=== PATIENT | female | born 1970 | race Caucasian/White ===

== ENCOUNTER 2017-01-13 02:45 | Outpatient (RCR) | payer BC ==
[~2017-01-13 02:45] MED LIST: CLOB15CR2 TOP; CYCL10TA9 PO; DIAZ5TAB3; HYDR1CAP2; IBP200T; LOPE2CAP PO; LORA10CA PO; LORA1TAB; MECL25TA56 PO; NAPR-243 PO; NITR100C3 PO; OXYC-188 PO; PNT40TEC PO; PRD10T; PRD20T; PROP1TAB77; Rivaroxaban PO
--- OUTSIDE RECORDS SUMMARY | 2017-02-03 09:35 | XMS REPORT | Continuity of Care Document ---
Author Author [facility] Organization [facility] Address Unknown Phone Unavailable Care Team Providers Care Subacute Nurse Name Role Phone JEROME CARUSO MD PCP Insurance Providers Payer Name Policy Number Subscriber Name Relationship [facility] [id number] Radha Blood Self / Same As Patient Advance Directives Directive Response Recorded Date/Time Advance Directives Yes 05/29/15 11:33pm Health Care Power of Senior Underwriter No 05/29/15 11:33pm Organ Donor Yes 05/29/15 11:33pm Resuscitation Status Full Code 05/29/15 11:33pm Problems Medical Problems Problem Onset Date Status Bilateral pulmonary embolism Unknown Active Medications Medication Dose Route Sig Days/Qty Instructions Order Date Discontinued Date Status Acetaminophen/Hydrocodone Bitart (Lorcet-Hd) 08/11/09 Discontinued Prednisone 08/19/09 09/25/09 Discontinued Diazepam (Valium) 08/19/09 09/25/09 Discontinued Prednisone 09/25/09 06/13/10 Discontinued Propoxyphene HCl/Acetaminophen 09/25/09 06/13/10 Discontinued Lorazepam (Ativan) 09/25/09 06/13/10 Discontinued Ibuprofen 09/25/09 06/13/10 Discontinued Pantoprazole Sodium 40 Mg PO DAILY 09/25/09 08/30/10 Discontinued Loperamide HCl (Imodium) 4 Mg PO DAILY PRN DIARRHEA TAKE 2 (2MG) CAPSULE 06/13/10 Active Nitrofurantoin Macrocrystals 100 Mg PO TWICE A DAY 7 Days 06/14/1029/09 Discontinued Meclizine HCl 1 Each PO QID PRN 14 Qty 06/14/10 08/30/10 Discontinued Cyclobenzaprine HCl (Flexeril) 1 Each PO Q8HR PRN 15 Qty 08/30/10 Discontinued Naproxen 1 Each PO TID PRN 20 Qty FOR PAIN 08/30/10 12/15/14 Discontinued Loperamide HCl (Imodium) 2 Cap PO DAILY LOOSE STOOL. NOT TO EXCEED 8 CAPS/24 HRS. 12/15/14 12/15/14 Discontinued Loratadine 10 Mg PO DAILY 12/15/14 Active Clobetasol Propionate TOP DAILY PRN ITCHING 12/15/14 05/29/15 Discontinued [Rivaroxaban] 15 Mg PO BID@07,17 42 Qty 12/16/14 Active Oxycodone/Acetaminophen 1 Each PO Q6HR PRN For Pain 30 Qty 12/16/14 Discontinued Social History Social History Problem Response Recorded Date/Time Alcohol Use Rarely Uses 05/29/2015 11:33pm Recreational Drug Use No 05/29/2015 11:33pm Recent Foreign Travel No 05/29/2015 11:33pm Recent Infectious Disease Exposure No 05/29/2015 11:33pm Hospitalization with Isolation Denies 05/29/2015 11:33pm Sexually Transmitted Disease No 05/29/2015 11:33pm HIV/AIDS No 05/29/2015 11:33pm Smoking Status Never a Smoker 05/29/2015 11:33pm Do you dip or chew tobacco? No 05/29/2015 11:33pm Query Response Start Date Stop Date Smoking Status Never a Smoker Hospital Discharge Instructions No hospital discharge instructions. Plan of Care No plan of care. Functional Status No functional status results. Allergies, Adverse Reactions, Alerts Allergen Type Severity Reaction Status Last Updated Sulfa (Sulfonamide Antibiotics) ([id number]) Allergy Mild Active Immunizations Name Given Type Tetanus Booster (TDap) More than 5yrs Historical Vital Signs Acute Vital Signs Vital Response Date/Time Temperature (Fahrenheit) 96.9 degrees F (97.6 - 99.5) Temperature (Calculated Celsius) 36.50714 degrees C (36.4 - 37.5) Temperature Source Temporal Pulse Rate (adult) 94 bpm (60 - 90) Respiratory Rate 18 bpm (12 - 24) O2 Sat by Pulse Oximetry 98 % (88 - 100) Blood Pressure 137/95 mm Hg Pain Pain Intensity 4 Height (Feet) 5 feet Height (Inches) 1 inches Height (Calculated Centimeters) 154.601198 cm Weight (Pounds) 160 pounds Weight (Calculated Kilograms) 72.861839 kilograms Calculated BMI 30.23 Results Laboratory Results Test Name Result Units Flags Reference Collection Date/Time Result Date/ Time Comments White Blood Count 7.8 10^3/uL 4.3-11.0 05/30/2015 12:2005/30/2015 12 :32am Red Blood Count 4.51 10^6/uL 4.35-5.85 05/30/2015 12:05/30/2015 12 :32am Hemoglobin 13.0 G/DL 11.5-16.0 05/30/2015 12:05/30/2015 12:32am Hematocrit 39 % 35-52 05/30/2015 12:05/30/2015 12:32am Mean Corpuscular Volume 87 FL 80-99 05/30/2015 12:05/30/2015 12: 32am Mean Corpuscular Hemoglobin 29 PG 25-34 05/30/2015 12:05/30/2015 12:32am Mean Corpuscular Hemoglobin Concent 33 G/DL 32-36 05/30/2015 12: 12:32am Red Cell Distribution Width 13.6 % 10.0-14.5 05/30/2015 12:2014 12:32am Platelet Count 200 10^3/uL 130-400 05/30/2015 12:05/30/2015 12: 32am Mean Platelet Volume 10.7 FL H 7.4-10.4 05/30/2015 12:05/30/2015 12: 32am Neutrophils (%) (Auto) 57 % 42-75 05/30/2015 12:2005/30/2015 12: 32am Lymphocytes (%) (Auto) 33 % 12-44 05/30/2015 12:2005/30/2015 12: 32am Monocytes (%) (Auto) 8 % 0-12 05/30/2015 12:05/30/2015 12:32am Eosinophils (%) (Auto) 2 % 0-10 05/30/2015 12:05/30/2015 12:32am Basophils (%) (Auto) 1 % 0-10 05/30/2015 12:05/30/2015 12:32am Neutrophils # (Auto) 4.5 X 10^3 1.8-7.8 05/30/2015 12:05/30/2015 12:32am Lymphocytes # (Auto) 2.6 X 10^3 1.0-4.0 05/30/2015 12:05/30/2015 12:32am Monocytes # (Auto) 0.6 X 10^3 0.0-1.0 05/30/2015 12:05/30/2015 12: 32am Eosinophils # (Auto) 0.1 10^3/uL 0.0-0.3 05/30/2015 12:05/30/2015 12:32am Basophils # (Auto) 0.0 10^3/uL 0.0-0.1 05/30/2015 12:05/30/2015 12 :32am Prothrombin Time 13.5 SEC 12.2-14.7 05/30/2015 12:05/30/2015 12: 48am INR Comment 1.1 0.8-1.4 05/30/2015 12:05/30/2015 12:48am INTERPRETIVE DATA SUGGESTED THERAPEUTIC RANGE FOR INR'S: VENOUS THROMBOSIS, PULMONARY EMBOLISM, OR PREVENTION OF SYSTEMIC EMBOLISM (EG. IN ATRIAL FIBRILLATION): 2.0 - 3.0 MECHANICAL PROSTHETIC HEART VALVES: 2.5 - 3.5* *NOTE: INR'S UP TO 4.5 MAY BE NECESSARY IN SELECTED GROUPS OF HIGH RISK PATIENTS. [employer] CONSENSUS CONFERENCE ON ANTITHROMBOTIC THERAPY (2000). Activated Partial Thromboplast Time 34 SEC 24-35 05/30/2015 12: 12:48am D-Dimer 0.22 UG/ML 0.00-0.49 05/30/2015 12:20am 05/30/2015 12:48am Sodium Level 140 MMOL/L 135-145 05/30/2015 12:05/30/2015 12:52am Potassium Level 4.0 MMOL/L 3.6-5.0 05/30/2015 12:05/30/2015 12: 52am Chloride Level 108 MMOL/L H 98-107 05/30/2015 12:05/30/2015 12:52am Carbon Dioxide Level 24 MMOL/L 21-32 05/30/2015 12:05/30/2015 12: 52am Blood Urea Nitrogen 11 MG/DL 7-18 05/30/2015 12:05/30/2015 12: 52am Creatinine 0.75 MG/DL 0.60-1.30 05/30/2015 12:05/30/2015 12:52am BUN/Creatinine Ratio 15 05/30/2015 12:05/30/2015 12:52am Estimat Glomerular Filtration Rate > 60 05/30/2015 12:2014 12:52am GFR INTERPRETIVE DATA UNITS FOR ESTIMATED GFR (eGFR): mL/min/1.73 M2 REFERENCE RANGE FOR ESTIMATED GFR (eGFR) eGFR NORMAL eGFR >60 MODERATELY DECREASED eGFR 30-59 SEVERLY DECREASED eGFR 15-29 KIDNEY FAILURE <15 (OR DIALYSIS) Glucose Level 97 MG/DL 70-105 05/30/2015 12:05/30/2015 12:52am Calcium Level 9.5 MG/DL 8.5-10.1 05/30/2015 12:05/30/2015 12:52am Total Bilirubin 0.3 MG/DL 0.1-1.0 05/30/2015 12:05/30/2015 12: 52am Alkaline Phosphatase 51 U/L 40-136 05/30/2015 12:05/30/2015 12: 52am Aspartate Amino Transf (AST/SGOT) 18 U/L 5-34 05/30/2015 12:2014 12:52am Alanine Aminotransferase (ALT/SGPT) 13 U/L 0-55 05/30/2015 12: 12:52am Total Protein 6.9 G/DL 6.4-8.2 05/30/2015 12:05/30/2015 12:52am Albumin 4.0 G/DL 3.2-4.5 05/30/2015 12:20am 05/30/2015 12:52am Procedures No known history of procedures. Encounters Encounter Location Date/Time Departed Emergency Room [facility] 05/29/15 11:24pm Recent Diagnosis
== END 2017-04-13 | disposition home or self-care (01) ==
LOC: ONC 02:45
PROVIDERS: ATTEND Internal Medicine Hematology & Oncology
DX: D68.59 Other primary thrombophilia (principal); Z86.718 Personal history of other venous thrombosis and embolism; Z86.711 Personal history of pulmonary embolism
CPT/HCPCS: 99213

== ENCOUNTER 2017-06-26 09:28 | Outpatient (RCR) | payer BC | END 2017-06-26 14:25 | disposition home or self-care (01) | LOC: ONC 09:28 | PROVIDERS: ATTEND Internal Medicine Hematology & Oncology | DX: D68.59 Other primary thrombophilia (principal); Z86.718 Personal history of other venous thrombosis and embolism; Z86.711 Personal history of pulmonary embolism | CPT/HCPCS: 99213 ==

== ENCOUNTER 2017-12-25 15:02 | Outpatient (RCR) | payer BC | END 2018-03-22 | disposition home or self-care (01) | LOC: ONC 15:02 | PROVIDERS: ATTEND Internal Medicine Hematology & Oncology | DX: D68.59 Other primary thrombophilia (principal); Z86.718 Personal history of other venous thrombosis and embolism; Z86.711 Personal history of pulmonary embolism | CPT/HCPCS: 99213 ==

== ENCOUNTER 2018-06-25 15:09 | Outpatient (RCR) | payer BC | END 2018-06-30 | disposition home or self-care (01) | LOC: ONC 15:09 | PROVIDERS: ATTEND Internal Medicine Hematology & Oncology | DX: D68.59 Other primary thrombophilia (principal); Z86.718 Personal history of other venous thrombosis and embolism; Z86.711 Personal history of pulmonary embolism ==

== ENCOUNTER 2020-05-08 05:42 | Outpatient (RCR) | payer BC ==
[~2020-05-08] VITALS: Ht 154.9 cm; Wt 75.3 kg
[~2020-05-08 05:42] MED LIST changes: +CRAN400T3 PO; +LOPE-134 PO; +LORA10TA7 PO; +RIVA20TA PO
== END 2020-05-08 15:05 | disposition home or self-care (01) ==
LOC: PREOP 05:42
PROVIDERS: ATTEND Surgery
DX: Z01.818 Encounter for other preprocedural examination (principal); Z11.59 Encounter for screening for other viral diseases
CPT/HCPCS: 87635

== ENCOUNTER 2020-05-11 07:36 | Day surgery (SDC) | payer BC ==
[2020-05-11] VITALS (13 sets, daily range): BP systolic 96–138; BP diastolic 57–95
--- OUTSIDE RECORDS SUMMARY | 2020-05-11 07:43 | XMS REPORT | Continuity of Care Document ---
Author Author Cynthia Luna [facility] Address [address] [place] [address] Phone Unavailable Care Team Providers Care Game Farm Helper Name Role Phone Rupesh Luna PP Unavailable Rupesh Luna RP Unavailable Payers Payer name Insurance type Covered green party ID Authorization(s ) BCBS Out Of Area [facility] [id number] Problems Condition Effective Dates (start - stop) Clinical Status Unknown Family History Family Member Diagnosis Age At Onset Status Unknown Social History Type Description Quantity Date Unknown Allergies, Adverse Reactions, Alerts Substance Reaction Severity Status Substance Type Unknown Medications Medication Instructions Dosage Effective Dates (start - stop) Sta tus Comments Drug Treatment Unknown Immunizations Vaccine Date Status Comments Unknown Results Test Name Date and Time Measure Units Reference Range Abnormal F lag Comments Unknown Vital Signs Date / Time: Height Weight BMI Pulse Rate Blood Pressure Temperatu re Respiratory Rate Body Surface Area Head Circumference BMI percentile Unknown Procedures Procedure Date Provider Charges For OFFICE/OUTPATIENT VISIT EST Thank You Encounters Encounter Practice Location Reason(s) For Visit Diagnoses Date Provider Provider Charges For OFFICE/OUTPATIENT VISIT EST [facility], [address] [place], [address], [facility] Jeremy gillespie. [address], [address], [place], [address], [place]. tel:[phone] Advance Directives Directive Yes / No Effective Date File Name Unknown
--- OUTSIDE RECORDS SUMMARY | 2020-05-11 07:43 | XMS REPORT | CCD ---
Author Author Auto RADHA Blank Organization [facility] er Address Unknown Phone Unavailable Care Team Providers Care Clerk Of Court Name Role Phone ANGELINE ABBOTT, DR. Santosh JENSEN RP [phone] PCP MD, NO PP Unavailable Allergies, Adverse Reactions, Alerts Substance Reaction Status Compazine Active hydrocodone nausea Active NKA Canceled Sulfa drugs Hives Active sulfADIAZINE Canceled Medications Medication Instructions Start Date End Date Status Tylenol 325 mg oral 650 mg = 2 TAB, PO, Q4H (Every 4 02/20/2010 03/22/2010 Ordered tablet hours), PRN Pain, # 360 TAB , 02/20/10 9:37:43 Vital Signs Most recent to oldest [Reference Range]: 1 Temperature [96.8-99.7 DegF] 98.0 DegF (02/20/2010 04:00:00) Temp Method Oral (02/20/2010 04:00:00) Heart Rate 89 bpm (02/20/2010 04:00:00) Heart Rate Location Auto BP (02/19/2010 00:00:00) Pulse Equipment Auto BP (02/16/2010 16:00:00) Respiratory Rate [14-20 br/min] 16 br/min (02/20/2010 04:00:00) Inet NIBP Systolic [71-219 mmHg] 139 mmHg (02/20/2010 04:00:00) Inet NIBP Diastolic [50-90 mmHg] 89 mmHg (02/20/2010 04:00:00) NIBP MAP 90 mmHg (02/14/2010 17:30:00) NIBP MAP Calc 106 (02/20/2010 04:00:00) Heart Rhythm Sinus/atrial rhythm, Sinus/atrial tachycardia (02/14/2010 15:20:00) Vital Signs Status/Type Pre Procedure (02/14/2010 12:15:00) Procedures Procedures Date Related Diagnosis Closure of stoma of small intestine 02/14/2010 00:00 :00 Other partial resection of small intestine 0 00:00:00
--- OUTSIDE RECORDS SUMMARY | 2020-05-11 07:43 | XMS REPORT | CCD ---
Author Author Auto RosamariaRADHA Organization [facility] er Address Unknown Phone Unavailable Care Team Providers Care Cable Way Operator Name Role Phone JAMES ABBOTT, DR. Emelina PATEL CP [phone] ANGELINE ABBOTT, DR. Santosh JENSEN RP [phone] PCP MD, NO PP Unavailable Allergies, Adverse Reactions, Alerts Substance Reaction Status Compazine Active hydrocodone nausea Active NKA Canceled Sulfa drugs Hives Active sulfADIAZINE Canceled Vital Signs Most recent to oldest [Reference Range]: 1 Temperature [96.8-99.7 DegF] 98.8 DegF (10/16/2009 13:28:00) Temp Method Temporal (10/16/2009 13:28:00) Heart Rate 96 bpm (10/16/2009 15:49:00) Pulse Rate [60-100 bpm] 61 bpm (10/16/2009 13:28:00) Respiratory Rate [14-20 br/min] 20 br/min (10/16/2009 18:48:00) Systolic Blood Pressure [90-140 mmHg] 145 mmHg *HI* (10/16/2009 13:28:00) Diastolic Blood Pressure [60-90 mmHg] 97 mmHg *HI* (10/16/2009 13:28:00) Inet NIBP Systolic [71-219 mmHg] 123 mmHg (10/16/2009 15:49:00) Inet NIBP Diastolic [50-90 mmHg] 93 mmHg *HI* (10/16/2009 15:49:00)
--- OUTSIDE RECORDS SUMMARY | 2020-05-11 07:43 | XMS REPORT | CCD ---
Author Author Auto RADHA Blank Organization [facility] er Address Unknown Phone Unavailable Care Team Providers Care Breaker Hand Name Role Phone ANGELINE ABBOTT, DR. Santosh JENSEN RP [phone] PCP MD, NO PP Unavailable Allergies, Adverse Reactions, Alerts Substance Reaction Status Compazine Active hydrocodone nausea Active NKA Canceled Sulfa drugs Hives Active sulfADIAZINE Canceled Vital Signs Most recent to oldest [Reference Range]: 1 Temperature [96.8-99.7 DegF] 98.5 DegF (10/11/2009 11:00:00) Temp Method Oral (10/11/2009 11:00:00) Pulse Rate [60-100 bpm] 93 bpm (10/11/2009 11:00:00) Heart Rate Location Auto BP (10/11/2009 11:00:00) Pulse Equipment Auto BP (10/10/2009 16:00:00) Respiratory Rate [14-20 br/min] 16 br/min (10/11/2009 11:00:00) Systolic Blood Pressure [90-140 mmHg] 111 mmHg (10/11/2009 11:00:00) Diastolic Blood Pressure [60-90 mmHg] 78 mmHg (10/11/2009 11:00:00) Mean Arterial Pressure 89 mmHg (10/11/2009 11:00:00) BP Location Arm, left (10/11/2009 11:00:00) BP Equipment Auto BP (10/11/2009 11:00:00) Procedures Procedures Date Related Diagnosis Other nonoperative replacements 10/09/2009 00:00:00 Percutaneous abdominal drainage 10/05/2009 00:00:00 Venous catheterization, not elsewhere classified 05/2009 00:00:00
--- OUTSIDE RECORDS SUMMARY | 2020-05-11 07:44 | XMS REPORT | CCD ---
Author Author Auto RADHA Blank Organization [facility] er Address Unknown Phone Unavailable Care Team Providers Care Coder Name Role Phone ROMANA ABBOTT, ALEXUS Pacheco RP [phone] ANGELINE ABBOTT, DR. Santosh JENSEN CP [phone] PCP MD, NO PP Unavailable Allergies, Adverse Reactions, Alerts Substance Reaction Status Compazine Active hydrocodone nausea Active NKA Canceled Sulfa drugs Hives Active sulfADIAZINE Canceled
--- OUTSIDE RECORDS SUMMARY | 2020-05-11 07:45 | XMS REPORT | Summary of Care ---
Author Organization Unknown Address Unknown Phone Unavailable Encounter [facility] [id number] Date(s): 10/06/14 - 10/06/[address] [address]- Discharge Disposition: Home - 01 Attending Physician: HARISH SERRANO MD Admitting Physician: HARISH SERRANO MD Vital Signs No data available for this section Problem List No Known Problems Allergies, Adverse Reactions, Alerts Substance Reaction Severity Status Compazine AGITATION Active hydrocodone nausea Active Sulfa drugs Hives Severe Active Medications No data available for this section Results No data available for this section Immunizations No data available for this section Procedures No data available for this section Social History No data available for this section Functional Status No data available for this section Assessment and Plan No data available for this section Hospital Discharge Instructions No data available for this section
--- OUTSIDE RECORDS SUMMARY | 2020-05-11 07:45 | XMS REPORT | CCD ---
Author Author Auto RADHA Blank [facility] er Address Unknown Phone Unavailable Care Team Providers Care Electrician Bus Name Role Phone ANGELINE ABBOTT, DR. Santosh JENSEN CP [phone] REFERRING MD, MARIA ESTHER RP Unavailable None MD, ED PP Unavailable Allergies, Adverse Reactions, Alerts Substance Reaction Status Compazine AGITATION Active hydrocodone nausea Active Sulfa drugs Hives Active Problem List Condition Effective Dates Status No Known Problems1 Active 1Generated from Physician Discharge Information Form. Medications Medication Instructions Start Date End Date Status pneumococcal 0.5 mL, SOLUTION, IM, Once, 03/19/2012 03/19/2012 Completed 23-valent vaccine 03/19/12 13:00:00, Stop marck e 03/19/12 13:00:00, give on admission (Pneumovax) PERcocet 5/325 1 TAB, PO, Q4H (Every 4 hours), PRN 03/13/2012 Ordered Pain, 0 Refill(s) Immunizations Vaccine Date Status pneumococcal 23-valent vaccine 03/19/2012 Not Don e Vital Signs Most recent to oldest [Reference Range]: 1 Temperature [96.8-99.7 DegF] 98.5 DegF (03/13/2012 08:00:00) Temp Method Oral (03/13/2012 08:00:00) Heart Rate 64 bpm (03/13/2012 08:00:00) Heart Rate Location Auto BP (03/13/2012 04:20:00) Respiratory Rate [14-20 br/min] 20 br/min (03/13/2012 08:00:00) Inet NIBP Systolic [71-219 mmHg] 101 mmHg (03/13/2012 08:00:00) Inet NIBP Diastolic [50-90 mmHg] 64 mmHg (03/13/2012 08:00:00) NIBP MAP 91 mmHg (03/13/2012 08:00:00) NIBP MAP Calc 76 (03/13/2012 08:00:00) Heart Rhythm Sinus/atrial rhythm (03/12/2012 18:45:00) Results HEMATOLOGY Most recent to oldest [Reference Range]: 1 WBC [4.0-11.0 x10'3/microL] 11.1 x10'3/microL *HI* (03/13/2012 06:10:00) RBC [3.90-5.60 x10'6/microL] 3.92 x10'6/microL (03/13/2012 06:10:00) Hgb [12.0-16.0 g/dL] 11.9 g/dL *LOW* (03/13/2012 06:10:00) Hct [35-47 %] 35 % (03/13/2012 06:10:00) Platelet [140-400 x10'3/microL] 168 x10'3/microL (03/13/2012 06:10:00) MCV [81-99 fL] 90 fL (03/13/2012 06:10:00) MCH [27-34 pg] 31 pg (03/13/2012 06:10:00) MCHC [32-36 g/dL] 34 g/dL (03/13/2012 06:10:00) RDW [<=14.5 %] 13.4 % (03/13/2012 06:10:00) MPV [6.5-10.4 fL] 9.3 fL (03/13/2012 06:10:00) Neutrophils % [44-76 %] 87 % *HI* (03/13/2012 06:10:00) Lymphocytes % [13-43 %] 8 % *LOW* (03/13/2012 06:10:00) Monocytes % [0-13 %] 4 % (03/13/2012 06:10:00) Eosinophils % [0-7 %] 0 % (03/13/2012 06:10:00) Basophils % [0-3 %] 0 % (03/13/2012 06:10:00) Neutrophils Abs [1.4-7.2 x10'3/microL] 9.7 x10'3/micro L *HI* (03/13/2012 06:10:00) Lymphocytes Abs [1.2-3.4 x10'3/microL] 0.9 x10'3/micro L *LOW* (03/13/2012 06:10:00) Monocytes Abs [0.1-0.6 x10'3/microL] 0.5 x10'3/microL (03/13/2012 06:10:00) Eosinophils Abs [0.0-0.5 x10'3/microL] 0.0 x10'3/micro L (03/13/2012 06:10:00) Basophils Abs [0.0-0.2 x10'3/microL] 0.0 x10'3/microL (03/13/2012 06:10:00) Slide Review? Performed (03/13/2012 06:10:00) CHEMISTRY Most recent to oldest [Reference Range]: 1 Sodium [136-145 mmol/L] 138 mmol/L (03/13/2012 06:10:00) Potassium [3.5-5.1 mmol/L] 3.9 mmol/L (03/13/2012 06:10:00) Chloride [98-107 mmol/L] 105 mmol/L (03/13/2012 06:10:00) CO2 [22-29 mmol/L] 26 mmol/L (03/13/2012 06:10:00) AGAP [3-19 mmol/L] 7 mmol/L (03/13/2012 06:10:00) Glucose [70-100 mg/dL] 144 mg/dL *HI* (03/13/2012 06:10:00) BUN [8-20 mg/dL] 7 mg/dL *LOW* (03/13/2012 06:10:00) Creatinine [0.7-1.2 mg/dL] 0.5 mg/dL 1 *LOW* (03/13/2012 06:10:00) Calcium [8.6-10.2 mg/dL] 8.8 mg/dL (03/13/2012 06:10:00) GFR (MDRD) >110.0 mL/min/1.73 m2 2 *NA* (03/13/2012 06:10:00) Est CrCL (CG) 111.8 mL/min 3 (03/13/2012 06:10:00) 1Interpretive Data: The presence of ketone bodies can cause artificially high results in serum, plasma and urine. 2Result Comment: GFR calculated based on MDRD abbreviated formula. Age(years) Average GFR 20-29 116 ml/min/1.73 m2 30-39 107 ml/min/1.73 m2 40-49 99 ml/min/1.73 m2 50-59 93 ml/min/1.73 m2 60-69 85 ml/min/1.73 m2 70+ 75 ml/min/1.73 m2 Acceptable GFR =>60 ml/min/1.73 m2 Chronic Kidney Disease <60 ml/min/1.73 m2 Kidney Failure <15 ml/min/1.73 m2 3Result Comment: Estimated Creatinine Clearance calculated based on the Cockcroft-Gault formula. BLOOD BANK Most recent to oldest [Reference Range]: 1 ABORh A NEG *Unknown* (03/13/2012 06:10:00) ABSC Gel Interp Negative (03/13/2012 06:10:00) Procedures Procedures Date Related Diagnosis Implantation of mesh or other prosthesis for open inc isional 03/12/2012 00:00:00 or ventral hernia repair or mesh for cl osure of debridement for necrotizing soft tissue infection ( List separately in addition to code for the incisional or ventral hernia repair) Other open incisional hernia repair with graft or pro sthesis 03/12/2012 00:00:00 Repair recurrent incisional or ventral hernia; reduci ble 03/12/2012 00:00:00
--- OUTSIDE RECORDS SUMMARY | 2020-05-11 07:45 | XMS REPORT | Continuity of Care Document ---
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 Name Role Phone [facility] Unavailable Unavailable Problems Problem Status Onset Date Classification Date Reported Comments Source PRIMARY HYPERCOAGULABLE STATE Active 10/06/2014 [facility] [employer] UNSPECIFIED INTESTINAL OBSTRUCTION Active 03/22/2012 [facility] [place] ABDOMINAL PAIN, GENERALIZED Ac tive 03/22/2012 [facility] [place] POUCHITIS [facility] 03/22[facility]2012 [facility] LEUKOCYTOSIS, UNSPECIFIED Acti ve 03/22/2012 [facility] [place] OTHER POSTSURGICAL STATUS Acti ve 03/22/2012 [facility] [employer] 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 [facility] Medications Medication Details Route Status Patient Instructions Ordering Provider Order Date Source Metamucil 1 Packet, PO, Daily, 0 Refill(s) PO Ordered [place] 03/22/2012 [facility] ciprofloxacin 500 mg oral tablet = 1 TAB, PO, BID (2 times a day), 0 Refill(s) PO Ordered [place] 03/22/2012 [facility] acetaminophen-oxycodone 325 mg-5 mg oral tablet 1 TAB, PO, Q4H (Every 4 hours), PRN Pain, 0 Refill(s) PO Ordered [facility] 03/22/2012 [facility] Flagyl 500 mg oral tablet = 1 TAB, PO, BID (2 times a day), 0 Refill(s) PO Ordered [place] 03/22/2012 [facility] Pepcid 20 mg oral tablet = 1 T AB, PO, BID (2 times a day), 0 Refill(s) PO Ordered [place] 03/22/2012 [facility] pneumococcal 23-valent vaccine 0.5 mL, SOLUTION, IM, Once, 03/19/12 13:00:00, Stop date 03/19/12 13:00:00, give on admission (Pneumovax) IM Completed [place] 03/19/2012 [facility] Tylenol Caplet Extra Strength 1,000 mg, PO, Q6H (Every 6 hours), PRN as needed for pain, 0 Refill(s) PO Ordered 03/19/2012 [facility] PERcocet 5/325 1 TAB, PO, Q4H (Every 4 hours), PRN Pain, 0 Refill(s) PO Ordered [place] 03/01 [facility] Tylenol 325 mg oral tablet 650 mg = 2 TAB, PO, Q4H (Every 4 hours), PRN Pain, # 360 TAB, 02/20/10 9:37:43 PO Ordered [place] 02/20/2010 [facility] Drug Treatment Unknown Active [facility] Allergies, Adverse Reactions, Alerts Substance Category Reaction Severity Reaction type Status Date Reported Comments Source Compazine propensity to advers e reactions to substance AGITATION Adverse Reaction Active [facility] hydrocodone propensity to adve rse reactions to substance nausea Adverse Reaction Active [facility] Sulfa drugs drug allergy Hives Severe Allergy Active [facility] Compazine Assertion AGITATION Propensity to adverse reacti ons to drug Active [facility] hydrocodone Assertion nausea Propensity to adverse reacti ons to drug Active [facility] Sulfa drugs Assertion Hives Severe Drug allergy Active [facility] Immunizations Immunization Date Given Site Status Last Updated Comments Source pneumococcal 23-valent vaccine 03/19/2012 Not Given E llis [facility] Unknown completed [facility] Results Order Name Results Value Reference Range Date Interpretation Comments Source CHEMISTRY AGAP 4 mmol/L - 19 03/21/2012 [facility] CHEMISTRY BUN 2 mg/dL 8 - 20 03/21/2012 LOW [facility] CHEMISTRY Glucose 103 mg/dL 70 - 100 03/21/2012 [facility] CHEMISTRY CO2 23 mmol/L 22 - 29 03/21/2012 [facility] CHEMISTRY Sodium 136 mmol/L 136 - 145 03/21/2012 [facility] CHEMISTRY Calcium 9.0 mg/dL 8.6 - 10.2 03/21/2012 [facility] CHEMISTRY Creatinine 0.5 mg/dL 0.7 - 1.2 03/21/2012 LOW <sup>1</sup>Interpretive Data: The prese nce of ketone bodies can cause artificially high results in serum, plasma and urine. [facility] CHEMISTRY Potassium 3.8 mmol/L 3.5 - 5.1 03/21/2012 [facility] CHEMISTRY Chloride 109 mmol/L 98 - 107 03/21/2012 [facility] CHEMISTRY Est CrCL (CG) 109.8 mL/min 03/21/2012 <sup>7</sup>Result Comment: Estimated Cr eatinine Clearance calculated based on the Cockcroft-Gault formula. [facility] CHEMISTRY GFR (MDRD) >110.0 mL/min/1.73 m2 03/21/2012 NA <sup>4</sup>Result Comment: GFR calculat ed based on MDRD abbreviated formula.

Age(years) Average GFR
20-29 116 ml/min/1.73 m2
30-39 107 ml/min/1.73 m2
40-49 99 ml/min/1.73 m2
50-59 93 ml/min/1.73 m2
60-69 85 ml/min/1.73 m2
70+ 75 ml/min/1.73 m2

Acceptable GFR =>60 ml/min/1.73 m2
Chronic Kidney Disease <60 ml/min/1.73 m2
Kidney Failure <15 ml/min/1.73 m2 [facility] HEMATOLOGY MPV 9.4 fL 6.5 - 10.4 03/21/2012 [facility] HEMATOLOGY MCHC 34 g/dL 32 - 36 03/21/2012 [facility] HEMATOLOGY RDW 13.4 % <=14.5 03/21/2012 [facility] HEMATOLOGY Platelet 172 x 10'3/microL 140 - 400 03/21/2012 [facility] HEMATOLOGY MCH 31 pg 27 - 34 03/21/2012 [facility] HEMATOLOGY RBC 3.89 x10'6/microL 3.90 - 5.60 03/21/2012 LOW [facility] HEMATOLOGY Hgb 12.0 g/dL 12.0 - 16.0 03/21/2012 [facility] HEMATOLOGY Hct 35 % 35 - 47 03/21/2012 [facility] HEMATOLOGY MCV 90 fL 81 - 99 03/21/2012 [facility] HEMATOLOGY WBC 6.0 x 10'3/microL 4.0 - 11.0 03/21/2012 [facility] HEMATOLOGY Neutrophils % 61 % 44 - 76 03/21/2012 [facility] HEMATOLOGY Lymphocytes % 24 % 13 - 43 03/21/2012 [facility] HEMATOLOGY Monocytes % 10 % 0 - 13 03/21/2012 [facility] HEMATOLOGY Eosinophils Abs 0.3 x 10'3/microL 0.0 - 0.5 03/21/2012 [facility] HEMATOLOGY Basophils Abs 0.0 x 10'3/microL 0.0 - 0.2 03/21/2012 [facility] HEMATOLOGY Neutrophils Abs 3.6 x 10'3/microL 1.4 - 7.2 03/21/2012 [facility] HEMATOLOGY Lymphocytes Abs 1.4 x 10'3/microL 1.2 - 3.4 03/21/2012 [facility] HEMATOLOGY Monocytes Abs 0.6 x 10'3/microL 0.1 - 0.6 03/21/2012 [facility] HEMATOLOGY Eosinophils % 5 % 0 - 7 03/21/2012 [facility] HEMATOLOGY Basophils % 1 % 0 - 3 03/21/2012 [facility] CHEMISTRY Est CrCL (CG) 78.4 m L/min 03/20/2012 <sup>8</sup>Result Comment: Estimated Cr eatinine Clearance calculated based on the Cockcroft-Gault formula. [facility] CHEMISTRY Sodium 137 mmol/L 136 - 145 03/20/2012 [facility] CHEMISTRY AGAP 5 mmol/L 3 - 19 03/20/2012 [facility] CHEMISTRY CO2 25 mmol/L 22 - 03/20/[address] [facility] CHEMISTRY Glucose 117 mg/dL 70 - 100 03/20/2012 [place] [facility] CHEMISTRY Chloride 107 mmol/L 98 - 107 03/20/2012 [facility] CHEMISTRY Potassium 3.6 mmol/L 3.5 - 5.1 03/20/2012 [facility] CHEMISTRY Calcium 8.8 mg/dL 8.6 - 10.2 03/20/2012 [facility] CHEMISTRY Creatinine 0.7 mg/dL 0.7 - 1.2 03/20/2012 <sup>2</sup>Interpretive Data: The prese nce of ketone bodies can cause artificially high results in serum, plasma and urine. [facility] CHEMISTRY BUN 4 mg/dL 8 - 03/20/2012 LOW [facility] CHEMISTRY GFR (MDRD) 98.7 m L/min/1.73 m2 03/20/2012 NA <sup>5</sup>Result Comment: GFR calculat ed based on MDRD abbreviated formula.

Age(years) Average GFR
20-29 116 ml/min/1.73 m2
30-39 107 ml/min/1.73 m2
40-49 99 ml/min/1.73 m2
50-59 93 ml/min/1.73 m2
60-69 85 ml/min/1.73 m2
70+ 75 ml/min/1.73 m2

Acceptable GFR =>60 ml/min/1.73 m2
Chronic Kidney Disease <60 ml/min/1.73 m2
Kidney Failure <15 ml/min/1.73 m2 [facility] HEMATOLOGY RBC 3.90 x10'6/microL 3.90 - 5.60 03/20/[address] [facility] HEMATOLOGY WBC 8.9 x 10'3/microL 4.0 - 11.0 03/20/[address] [facility] HEMATOLOGY RDW 13.3 % <=14.5 03/20/[address] [facility] HEMATOLOGY MPV 8.9 fL 6.5 - 10.4 03/20/[address] [facility] HEMATOLOGY Platelet 172 x 10'3/microL 140 - 400 03/20/[address] [facility] HEMATOLOGY Hgb 12.0 g/dL 12.0 - 16.0 03/20/[address] [facility] HEMATOLOGY MCV 90 fL 81 - 99 03/20/[address] [facility] HEMATOLOGY Hct 35 % 35 - 47 03/20/2012 [facility] HEMATOLOGY MCHC 34 g/dL 32 - 36 03/20/[address] [facility] HEMATOLOGY MCH 31 pg 27 - 34 03/20/[address] [facility] HEMATOLOGY Lymphocytes Abs 1.4 x 10'3/microL 1.2 - 3.4 03/20/2012 [facility] HEMATOLOGY Eosinophils Abs 0.3 x 10'3/microL 0.0 - 0.5 03/20/2012 [facility] HEMATOLOGY Monocytes Abs 0.7 x 10'3/microL 0.1 - 0.6 03/20/2012 [facility] HEMATOLOGY Basophils Abs 0.0 x 10'3/microL 0.0 - 0.2 03/20/[address] [facility] HEMATOLOGY Basophils % 0 % 0 - 3 03/20/[address] [facility] HEMATOLOGY Eosinophils % 3 % 0 - 7 03/20/[address] [facility] HEMATOLOGY Lymphocytes % 15 % 13 - 43 03/20/2012 [facility] HEMATOLOGY Neutrophils % 73 % 44 - 76 03/20/2012 [facility] HEMATOLOGY Monocytes % 8 % 0 - 13 03/20/2012 [facility] HEMATOLOGY Neutrophils Abs 6.6 x 10'3/microL 1.4 - 7.2 03/20/2012 [facility] URINE Microscopic? No <sup>10 </sup>
(03/19/2012 10:20:00) <sup> </sup> 03/19/2012 <sup>10</sup>Interpretive Data: When result = No, Microscopic is not indicated. Specimen is held for 3 days. Call [phone] if further testing is needed. [facility] URINE UA Blood Negative < br/>(03/19/2012 10:20:00) <sup> </sup> Negative 03/19/2012 [facility] URINE UA Protein Trace mg/d L
*ABN*
(03/19/2012 10:20:00) <sup> </sup> Negative 03/19/2012 ABN [facility] URINE UA pH 6.5 5.0 - 8.0 03/19/2012 [facility] URINE UA Urobilinogen 0.2 EU per dL 0.2 - 1.0 03/19/2012 [facility] URINE UA Nitrite Negative < br/>(03/19/2012 10:20:00) <sup> </sup> Negative 03/19/2012 [facility] URINE UA Leuk Est Negative < br/>(03/19/2012 10:20:00) <sup> </sup> Negative 03/19/2012 [facility] URINE UA Spec Type Clean Catc h
(03/19/2012 10:20:00) <sup> </sup> 03/19/2012 [facility] URINE UA Color Yellow
(03/19/2012 10:20:00) <sup> </sup> 03/19/2012 [facility] URINE UA Spec Grav >=1.030 <b r/>(03/19/2012 10:20:00) <sup> </sup> 1.001 - 1.030 03/19/2012 [facility] URINE UA Ketones Negative m g/dL
(03/19/2012 10:20:00) <sup> </sup> Negative 03/19/2012 [facility] URINE UA Glucose Negative m g/dL
(03/19/2012 10:20:00) <sup> </sup> Negative 03/19/2012 [facility] URINE UA Bili Negative < br/>(03/19/2012 10:20:00) <sup> </sup> Negative 03/19/2012 [facility] CHEMISTRY Potassium 3.8 mmol/L 3.5 - 5.1 03/19/2012 [facility] CHEMISTRY Sodium 137 mmol/L 136 - 145 03/19/2012 [facility] CHEMISTRY CO2 23 mmol/L 22 - 29 03/19/2012 [facility] CHEMISTRY AGAP 11 mmol/L 3 - 19 03/19/2012 [facility] CHEMISTRY Chloride 103 mmol/L 98 - 107 03/19/2012 [facility] CHEMISTRY Creatinine 0.5 mg/dL 0.7 - 1.2 03/19/2012 LOW <sup>3</sup>Interpretive Data: The prese nce of ketone bodies can cause artificially high results in serum, plasma and urine. [facility] CHEMISTRY Total Protein 7.5 g/ dL 6.6 - 8.7 03/19/2012 [facility] CHEMISTRY BUN 13 mg/dL 8 - 20 03/19/2012 [facility] CHEMISTRY Calcium 9.9 mg/dL 8.6 - 10.2 03/19/2012 [facility] CHEMISTRY Glucose 114 mg/dL 70 - 100 03/19/2012 [facility] CHEMISTRY Albumin Level 4.5 g/ dL 3.5 - 5.2 03/19/2012 [facility] CHEMISTRY Bili Total 0.6 mg/dL 0.0 - 1.2 03/19/2012 [facility] CHEMISTRY Alk Phos 47 [iU]/d 40 - 130 03/19/2012 [facility] CHEMISTRY AST 22 Units/L 0 - 40 03/19/2012 [facility] CHEMISTRY ALT 16 [iU]/d 0 - 33 03/19/2012 [facility] CHEMISTRY Lipase 32 Units/L 13 - 60 03/19/[address] [facility] CHEMISTRY Est CrCL (CG) 109.8 mL/min 03/19/2012 <sup>9</sup>Result Comment: Estimated Cr eatinine Clearance calculated based on the Cockcroft-Gault formula. [facility] CHEMISTRY GFR (MDRD) >110.0 mL/min/1.73 m2 03/19/2012 NA <sup>6</sup>Result Comment: GFR calculat ed based on MDRD abbreviated formula.

Age(years) Average GFR
20-29 116 ml/min/1.73 m2
30-39 107 ml/min/1.73 m2
40-49 99 ml/min/1.73 m2
50-59 93 ml/min/1.73 m2
60-69 85 ml/min/1.73 m2
70+ 75 ml/min/1.73 m2

Acceptable GFR =>60 ml/min/1.73 m2
Chronic Kidney Disease <60 ml/min/1.73 m2
Kidney Failure <15 ml/min/1.73 m2 [facility] HEMATOLOGY Platelet 206 x 10'3/microL 140 - 400 03/19/[address] [facility] HEMATOLOGY MCHC 34 g/dL 32 - 36 03/19/2012 [facility] HEMATOLOGY RDW 13.6 % <=14.5 03/19/[address] [facility] HEMATOLOGY MCV 90 fL 81 - 99 03/19/[address] [facility] HEMATOLOGY MCH 30 pg 27 - 34 03/19/2012 [facility] HEMATOLOGY Hct 43 % 35 - 47 03/19/2012 [facility] HEMATOLOGY MPV 9.6 fL 6.5 - 10.4 03/19/[address] [facility] HEMATOLOGY WBC 13.4 x10'3/microL 4.0 - 11.0 03/19/2012 [facility] HEMATOLOGY RBC 4.79 x10'6/microL 3.90 - 5.60 03/19/[address] [facility] HEMATOLOGY Hgb 14.6 g/dL 12.0 - 16.0 03/19/2012 [facility] HEMATOLOGY Eosinophils % 0 % 0 - 7 03/19/2012 [facility] HEMATOLOGY Basophils % 0 % 0 - 3 03/19/[address] [facility] HEMATOLOGY Neutrophils Abs 11.5 x10'3/microL 1.4 - 7.2 03/19/2012 [facility] HEMATOLOGY Lymphocytes Abs 1.2 x 10'3/microL 1.2 - 3.4 03/19/2012 [facility] HEMATOLOGY Monocytes Abs 0.5 x 10'3/microL 0.1 - 0.6 03/19/[address] [facility] HEMATOLOGY Eosinophils Abs 0.1 x 10'3/microL 0.0 - 0.5 03/19/2012 [facility] HEMATOLOGY Basophils Abs 0.0 x 10'3/microL 0.0 - 0.2 03/19/2012 [facility] HEMATOLOGY Neutrophils % 86 % 44 - 76 03/19/2012 [facility] HEMATOLOGY Lymphocytes % 9 % 13 - 43 03/19/[address] [facility] HEMATOLOGY Monocytes % 4 % 0 - 13 03/19/[address] [facility] BLOOD BANK ABSC Gel Interp Negat nancy
(03/13/2012 06:10:00) <sup> </sup> 03/13/2012 [facility] BLOOD BANK ABORh A NEG 03/13/2012 Unknown [facility] CHEMISTRY Est CrCL (CG) 111.8 mL/min 03/13/2012 <sup>3</sup>Result Comment: Estimated Cr eatinine Clearance calculated based on the Cockcroft-Gault formula. [facility] CHEMISTRY Potassium 3.9 mmol/L 3.5 - 5.1 03/13/2012 [facility] CHEMISTRY Sodium 138 mmol/L 136 - 145 03/13/2012 [facility] CHEMISTRY Creatinine 0.5 mg/dL 0.7 - 1.2 03/13/2012 LOW <sup>1</sup>Interpretive Data: The prese nce of ketone bodies can cause artificially high results in serum, plasma and urine. [facility] CHEMISTRY BUN 7 mg/dL 8 - 20 03/13/2012 LOW [facility] CHEMISTRY Chloride 105 mmol/L 98 - 107 03/13/2012 [facility] CHEMISTRY Calcium 8.8 mg/dL 8.6 - 10.2 03/13/2012 [facility] CHEMISTRY AGAP 7 mmol/L 3 - 19 03/13/2012 [facility] CHEMISTRY CO2 26 mmol/L 22 - 29 03/13/2012 [facility] CHEMISTRY Glucose 144 mg/dL 70 - 100 03/13/2012 [place] [facility] CHEMISTRY GFR (MDRD) >110.0 mL/min/1.73 m2 03/13/2012 NA <sup>2</sup>Result Comment: GFR calculat ed based on MDRD abbreviated formula.

Age(years) Average GFR
20-29 116 ml/min/1.73 m2
30-39 107 ml/min/1.73 m2
40-49 99 ml/min/1.73 m2
50-59 93 ml/min/1.73 m2
60-69 85 ml/min/1.73 m2
70+ 75 ml/min/1.73 m2

Acceptable GFR =>60 ml/min/1.73 m2
Chronic Kidney Disease <60 ml/min/1.73 m2
Kidney Failure <15 ml/min/1.73 m2 [facility] HEMATOLOGY Slide Review? Perfo rmed
(03/13/2012 06:10:00) <sup> </sup> 03/13/2012 [facility] HEMATOLOGY MCH 31 pg 27 - 34 03/13/2012 [facility] HEMATOLOGY MCV 90 fL 81 - 99 03/13/2012 [facility] HEMATOLOGY Hct 35 % 35 - 47 03/13/2012 [facility] HEMATOLOGY Hgb 11.9 g/dL 12.0 - 16.0 03/13/2012 LOW [facility] HEMATOLOGY MCHC 34 g/dL 32 - 36 03/13/2012 [facility] HEMATOLOGY MPV 9.3 fL 6.5 - 10.4 03/13/2012 [facility] HEMATOLOGY Platelet 168 x 10'3/microL 140 - 400 03/13/2012 [facility] HEMATOLOGY RDW 13.4 % <=14.5 03/13/2012 [facility] HEMATOLOGY RBC 3.92 x10'6/microL 3.90 - 5.60 03/13/2012 [facility] HEMATOLOGY WBC 11.1 x10'3/microL 4.0 - 11.0 03/13/2012 [facility] HEMATOLOGY Lymphocytes % 8 % 13 - 43 03/13/2012 LOW [facility] HEMATOLOGY Neutrophils % 87 % 44 - 76 03/13/2012 [facility] HEMATOLOGY Monocytes % 4 % 0 - 13 03/13/2012 [facility] HEMATOLOGY Monocytes Abs 0.5 x 10'3/microL 0.1 - 0.6 03/13/2012 [facility] HEMATOLOGY Lymphocytes Abs 0.9 x 10'3/microL 1.2 - 3.4 03/13/2012 LOW [facility] HEMATOLOGY Neutrophils Abs 9.7 x 10'3/microL 1.4 - 7.2 03/13/2012 [facility] HEMATOLOGY Basophils Abs 0.0 x 10'3/microL 0.0 - 0.2 03/13/2012 [facility] HEMATOLOGY Eosinophils Abs 0.0 x 10'3/microL 0.0 - 0.5 03/13/2012 [facility] HEMATOLOGY Basophils % 0 % 0 - 3 03/13/2012 [facility] HEMATOLOGY Eosinophils % 0 % 0 - 7 03/13/2012 [facility] Unknown [facility] No data available for this section No data available for this section [facility] Pathology Reports No Data Provided for This Section Diagnostic Reports Report Value Date Source XR Abdomen Flat/Upright W Chest 1V [place] [address] Radiology Reports CPT Codes; 40623 CDM Codes: 3202026 (XR Abdomen Flat/Upright W Chest 1V) Reason for exam: abd pain Report ACUTE ABDOMINAL SERIES, 3 views CLINICAL DATA: Abdominal pain. FINDINGS: The heart size is normal. The mediastinum is unremarkable. No consolidations are seen. No free air is seen under the diaphragm. Minimal left basilar atelectasis or scarring noted. There is marked interval improvement in gaseous distention of stomach and small bowel , when compared to prior study. IMPRESSION: Marked interval improvement of gaseous distention of the stomach and small bowel, when compared to prior study with minimal residual small bowel prominence in the left upper quadrant, may represent improving partial small bowel obstruction. Dictating Sandra Moore Dictated 03/20/2012 Signing Sandra Moore Final Dictated by: SANDRA SHERIDAN DO Signed by: SANDRA SHERIDAN DO 03/20/12 10:01 Insurance Application Investigator: ZELDA 03/20/12 09:56 RADHA BLOOD [id number] 03/20/2012 [facility] CT Abdomen W Pelvis W Cont [address] [address] Radiology Reports CPT Codes; 16594, Q9967 CDM Codes: 5973488 (C Contrast Optiray 300/ML) Reason for exam: abd pain, possible partial SBO Addendum ADDENDUM: The patient was brought back four hours after the initial examination for repeat axial imaging of the abdomen and pelvis. Contrast reaches the distal bowel including the J-pouch. There is no evidence of obstruction. Dictating Pieter Sahu Dictated 03/19/2012 Signing Pieter Sahu Addended Report Dictated by: PIETER ROGERS MD Signed by: IPETER ROGERS MD 03/19/12 16:31 Insurance Application Investigator KAYLIE 03/19/12 16:[address] ABDOMEN AND PELVIS WITH CONTRAST. CLINICAL HISTORY: Abdominal pain, partial small bowel obstruction TECHNIQUE: Multiple contiguous axial CT images of the abdomen and pelvis were obtained with 100 cc of Optiray-300 contrast. Oral contrast was also used. Comparison to the CT abdomen and pelvis from October 16, 2009, today's plain film radiographs. FINDINGS: CT ABDOMEN FINDINGS: RADHA BLOOD [id number] [facility] [address] [address] Radiology Reports There has been development of minimal pleural fluid and minimal bibasilar atelectasis. The liver, gallbladder, spleen, pancreas, adrenal glands and kidneys remain essentially normal. A midline incisional scar is present. The previously seen right lower quadrant ileostomy is no longer present. A further discussion of bowel as mentioned in the pelvis findings below. There is no ascites. There is no lymphadenopathy or free air. There is no evidence of abscess. The aorta is normal in caliber. CT PELVIS FINDINGS: There are findings consistent with colectomy and J-pouch. There is fluid distention and mild gaseous distention of the residual colon. There is no evidence of small bowel obstruction. There is no ascites or lymphadenopathy. A right ovarian cyst is present measuring 2.8 cm. The uterus is unremarkable. The distal ureters and urinary bladder are normal. No acute osseous abnormality is seen. IMPRESSION: 1. No evidence of small bowel obstruction. 2. Status post previous colectomy and J-pouch. There is air fluid distention of the J-pouch and distal bowel. 3. Right ovarian 2.8 cm cyst. Dictating Pieter Sahu Dictated 03/19/2012 Signing Pieter Sahu Report revised on 03/19/12 16:31:34 by PIETER ROGERS MD Final Dictated by: PIETER ROGERS MD Signed by: PIETER ROGERS MD 03/19/12 13:01 Insurance Application Investigator: KAYLIE 03/19/12 12:52 RADHA BLOOD [id number] 03/19/2012 [facility] CT [place]domen [place] [address] Radiology Reports CPT Codes; 73413, Q9967 CDM Codes: 8151458 (C Contrast Optiray 300/ML) Reason for exam: abd pain, possible partial SBO Report CT ABDOMEN AND PELVIS WITH CONTRAST. CLINICAL HISTORY: Abdominal pain, partial small bowel obstruction TECHNIQUE: Multiple contiguous axial CT images of the abdomen and pelvis were obtained with 100 cc of Optiray-300 contrast. Oral contrast was also used. Comparison to the CT abdomen and pelvis from October 16, 2009, today's plain film radiographs. FINDINGS: CT ABDOMEN FINDINGS: There has been development of minimal pleural fluid and minimal bibasilar atelectasis. The liver, gallbladder, spleen, pancreas, adrenal glands and kidneys remain essentially normal. A midline incisional scar is present. The previously seen right lower quadrant ileostomy is no longer present. A further discussion of bowel as mentioned in the pelvis findings below. There is no ascites. There is no lymphadenopathy or free air. There is no evidence of abscess. The aorta is normal in caliber. CT PELVIS FINDINGS: There are findings consistent with colectomy and J-pouch. There is fluid distention and mild gaseous distention of the residual colon. There is no evidence of small bowel obstruction. There is no ascites or lymphadenopathy. A right ovarian cyst is present measuring 2.8 cm. The uterus is unremarkable. The distal ureters and urinary bladder are normal. No acute osseous abnormality is seen. RADHA BLOOD [id number] [place] [id number] Radiology Reports IMPRESSION: 1. No evidence of small bowel obstruction. 2. Status post previous colectomy and J-pouch. There is air fluid distention of the J-pouch and distal bowel. 3. Right ovarian 2.8 cm cyst. Dictating Pieter Sahu Dictated 03/19/2012 Signing Pieter Sahu Final Dictated by: PIETER ROGERS MD Signed by: PIETER ROGERS MD 03/19/12 13:01 Insurance Application Investigator: KAYLIE 03/19/12 12:52 RADHA BLOOD [id number] 03/19/2012 [facility] XR Abdomen Flat/Upright W Chest 1V [facility] [address] [address] Radiology Reports CPT Codes; 75956 CDM Codes: [id number] (XR Abdomen Flat/Upright W Chest 1V) Reason for exam: Abd pain Report Flat and upright abdomen with single view chest. Clinical History: Abdominal pain. Findings: Comparison is made to the CT abdomen and pelvis from October 16, 2009. The single view chest is clear. Moderate gaseous distention of stomach and small bowel is present, particularly in the central abdomen. No discrete air-fluid levels are seen. There is no evidence of free air. There are no abnormal radiopaque calcifications within the expected course of the urinary tract. The osseous structures are grossly normal. Impression: Moderate small bowel and gastric distention. Partial small bowel obstruction is the diagnosis of exclusion. CT followup is suggested. Dictating Pieter Sahu Dictated 03/19/2012 Signing Pieter Sahu Final Dictated by: PIETER ROGERS MD Signed by: PIETER ROGERS MD 03/19/12 08:37 Insurance Application Investigator: JEASTON 03/19/12 08:34 BALAJIALEX RADHA K [id number] 03/19/2012 [facility] Consultation Notes Results Value Date Source Emergency Room Record Emergency Room Record Abdominal pain Patient: RADHA BLOOD Age: 42 years Sex: Female : 1970 Author: PEDRO ANDRADE MD, AIDEN E Basic Information Time seen: Immediately upon arrival. History source: Patient. Arrival mode: Private vehicle. History limitation: None. History of Present Illness The patient presents with abdominal pain. The onset was last night. The course/duration of symptoms is worsening. The character of symptoms is sharp. The degree at onset was severe. The Location of pain at onset was diffuse. The degree at present is severe. The Location of pain at present is diffuse. Therapy today: prescription medications. Risk factors consist of recent surgery and hernia repair. Associated symptoms: nausea and vomiting. Review of Systems Constitutional symptoms: Negative except as documented in HPI. Skin symptoms: Negative except as documented in HPI. Eye symptoms: Negative except as documented in HPI. ENMT symptoms: Negative except as documented in HPI. Respiratory symptoms: No shortness of breath, Cardiovascular symptoms: No chest pain, Gastrointestinal symptoms: Abdominal pain, nausea, vomiting, no diarrhea, no constipation. Genitourinary symptoms: No dysuria, Musculoskeletal symptoms: Negative except as documented in HPI. Neurologic symptoms: Negative except as documented in HPI. Endocrine symptoms: Negative except as documented in HPI. Hematologic/Lymphatic symptoms: Negative except as documented in HPI. Allergy/immunologic symptoms: Negative except as documented in HPI. Health Status Allergies: . Allergic Reactions (Selected) Severe Sulfa drugs- Hives. Nonallergic Reactions (Selected) Severity not Documented Compazine- Agitation. Hydrocodone- Nausea. Medications: (Selected). Documented Medications Ordered Imodium A-D: 2 TABS, PO, Daily, 05/09/10 11:14:41 PERcocet 5/325: 1 TAB, PO, Q4H (Every 4 hours), PRN Pain, 0 Refill(s) Emergency Room Record Tylenol Caplet Extra Strength: 1,000 mg, PO, Q6H (Every 6 hours), PRN as needed for pain, 0 Refill(s) Past Medical/ Family/ Social History Medical history HEALTH HISTORY Colectomy Patient DVT - Deep vein thrombosis Patient Exercise tolerance Patient Factor V Leiden mutation Patient Hernia repair Patient J pouch Patient Ulcerative colitis Patient . Social history: Alcohol use: Denies. Physical Examination Vital Signs Vital Signs. 03/19/2012 7:14 Temperature 99.0 DegF Temp Method Oral Heart Rate 112 bpm Respiratory Rate 22 br/min HI Inet NIBP Systolic 127 mmHg Inet NIBP Diastolic 97 mmHg HI Oxygen Saturation. 03/19/2012 7:14 Oxygen Saturation 97 % General: Alert, severe distress, anxious. Skin: Warm, dry, no rash, Not cyanotic, Head: Normocephalic, atraumatic. Neck: Supple, trachea midline. Eye: Pupils are equal, round and reactive to light, extraocular movements are intact, normal conjunctiva, No scleral icterus. Ears, nose, mouth and throat: Oral mucosa moist, no pharyngeal erythema or exudate. Cardiovascular: No murmur, Normal peripheral perfusion, Tachycardia. Respiratory: Lungs are clear to auscultation, respirations are non-labored, breath sounds are equal. Gastrointestinal: Soft, abdominal distention, incision C/D/i, Tenderness: Severe, generalized, Guarding: Negative, Rebound: Negative, Bowel sounds: present, Organomegaly: Negative. Back: Nontender, Normal range of motion. Musculoskeletal: Normal ROM. Neurological: Alert and oriented to person, place, time, and situation, No focal neurological deficit observed, CN II-XII intact, normal sensory observed, normal motor observed, normal speech observed, normal coordination observed. Medical Decision Making Orders Launch Orders, Emergency Room Record Laboratory: Urinalysis / Reflex Microscopic (Order Processing): Urine, Clean Catch, Stat collect, 03/19/2012 7:48, Nurse collect, Hold Until Collected Comp Metabolic Panel (Order Processing): Blood, Stat collect, 03/19/2012 7:48 Lipase Level (Order Processing): Blood, Stat collect, 03/19/2012 7:48 CBC and Plt w Diff (Order Processing): Blood, Stat collect, 03/19/2012 7:48 Patient Care: IV insertion (Order Processing): 03/19/2012 7:48, Stat Pharmacy: HYDROmorphone (Order Processing): 0.5 mg, INJ, IV Push, Q15MIN (Every 15 minutes), STAT, 03/19/2012 7:48, 4 dose/time, Stop date 03/19/2012 8:33, (Dilaudid) famotidine (Order Processing): 20 mg, IV Push, Once, STAT, 03/19/2012 7:48, Stop date 03/19/2012 7:48, (Pepcid) ondansetron (Order Processing): 4 mg, IV Push, Once, STAT, 03/19/2012 7:48, Stop date 03/19/2012 7:48, (Zofran) LORazepam (Order Processing): 1 mg, IV Push, Once, STAT, 03/19/2012 7:48, Stop date 03/19/2012 7:48, (Ativan) Sodium Chloride 0.9% 1000 mL (Order Processing): 1,000 mL, IV, STAT, 03/19/2012 7:48, 1 dose/time, Stop date 03/19/2012 8:47, 1,000 mL/hr, Infuse over 60 minute, Bolus Radiology: XR Abdomen Flat/Upright W Chest 1V (Order Processing): 03/19/2012 7:48 Stat, Reason: Abd pain, Transport Mode: Bed ? No, IV? Yes, O2? Yes, Abd pain, Standard Precautions, WrittenLaunch Orders. Radiology: CT Abdomen W Pelvis W Cont (Order Processing): 03/19/2012 9:48 Stat, Reason: abd pain, possible partial SBO, Transport Mode: Bed ? No, IV? Yes, O2? Yes, Standard Precautions, Written Results review: Lab results : Laboratory, 03/19/2012 7:50 WBC 13.4 x10'3/microL HI RBC 4.79 x10'6/microL Hgb 14.6 g/dL Hct 43 % Platelet 206 x10'3/microL MCV 90 fL MCH 30 pg MCHC 34 g/dL RDW 13.6 % MPV 9.6 fL Neutrophils % 86 % HI Lymphocytes % 9 % LOW Monocytes % 4 % Eosinophils % 0 % Basophils % 0 % Neutrophils Abs 11.5 x10'3/microL HI Lymphocytes Abs 1.2 x10'3/microL Monocytes Abs 0.5 x10'3/microL Eosinophils Abs 0.1 x10'3/microL Basophils Abs 0.0 x10'3/microL Sodium 137 mmol/L Emergency Room Record Potassium 3.8 mmol/L Chloride 103 mmol/L CO2 23 mmol/L AGAP 11 mmol/L Glucose 114 mg/dL HI BUN 13 mg/dL Creatinine 0.5 mg/dL LOW Calcium 9.9 mg/dL GFR (MDRD) >110.0 mL/min/1.73 m2 NA Est CrCL (CG) 109.8 mL/min Albumin Level 4.5 g/dL Total Protein 7.5 g/dL Alk Phos 47 Inter. Units/L Lipase 32 Units/L AST 22 Units/L ALT 16 Inter. Units/L Bili Total 0.6 mg/dL Interpretation Abnormal results high WBC. Radiology results: . COMPLETED RADIOLOGY IMAGING STUDIES: XR Abdomen Flat/Upright W Ches [Final] (03/19 830): Impression: Moderate small bowel and gastric distention. Partial small bowel obstruction is the diagnosis of exclusion. CT followup is suggested. Reexamination/ Reevaluation Vital signs Vital Signs from Flowsheet 03/19/2012 12:00 Temperature 98.1 DegF Temp Method Oral Heart Rate 101 bpm Respiratory Rate 21 br/min HI Inet NIBP Systolic 122 mmHg Inet NIBP Diastolic 77 mmHg NIBP MAP Calc 92 Course: improving. Pain status: decreased. Interventions: IVF bolus and antiemetics, parenteral pain meds titrated to relief. Impression and Plan Diagnosis Abdominal pain 789.00 (ICD9 789.00) partial SBO Plan Condition: Guarded. Disposition: Admit: to Inpatient Unit. Emergency Room Record Prescriptions: Admission Orders Written. Counseled: Patient, Family, Regarding diagnosis, Regarding diagnostic results, Regarding treatment plan, Patient indicated understanding of instructions. Signed by: PEDRO ANDRADE MD, AIDEN Pritchard on March 19, 2012 11:24:29 PM 03/19/2012 [facility] Operative Report DATE OF OPERA TION 03/12/2012 PREOPERATIVE DIAGNOSIS Recurrent ventral abdominal hernia. POSTOPERATIVE DIAGNOSIS Recurrent ventral abdominal hernia. PROCEDURE Repair of ventral abdominal hernia with synthetic Marlex mesh. SURGEON Marbin Manley MD ANESTHESIA General. DESCRIPTION OF PROCEDURE The patient was prepared and draped in a sterile manner under adequate general anesthesia in the supine position. A vertical midline incision was made below the umbilicus and above the umbilicus. The dissection was taken down to the hernia sac. The hernia sac was entered. Hernia sac was dissected away from the surrounding fascial defect. The hernia sac was then excised. The fascia circumferentially around the hernia was debrided of all fatty tissue. The fascia was then reapproximated with interrupted sutures of #1 PDS. This was closed adequately without tension. This was done in a transverse manner. A synthetic Marlex mesh was then placed over the repair after being soaked in polymyxin, bacitracin fluid. The entire fascial area overlying the repair was sutured to the fascia with multiple interrupted sutures of 2-0 Prolene. The wound was then lavaged with poly andrea' and polymyxin, bacitracin fluid, as well as Betadine fluid. The subcutaneous tissue was reapproximated with interrupted sutures of 2-0 Vicryl. The skin was reapproximated with interrupted sutures of 3-0 black nylon. At the termination of the procedure, hemostasis was excellent. Sterile dressings were then applied. The patient tolerated the procedure well. Sponge and instrument counts were correct and the patient was taken back to the recovery area in stable and good condition. BDG/cm C.T. C.T. E: 03/13/2012 08:40 C.T./ Conf# [id number] Doc#: [id number] cc: 03/13/2012 [facility] Operative Report Operative Report hernia repair with mesh Patient: RADHA BLOOD Age: 42 years Sex: Female : 1970 Author: MARBIN MANLEY MD Operative Information Pre-Op Diagnosis: hernia. Post-Op Diagnosis: Same as Pre-Operative Diagnosis. Procedure: hernia repair with mesh. Surgeon(s): luciana. Dog Trainer[s]: regan coombs. Anesthesia: General. Specimens: None. Wound Type: Clean. Complications: None. Estimated blood loss: None. Patient Condition: Good. Signed by: MARBIN MANLEY MD on March 12, 2012 04:20:01 PM 03/12/2012 [facility] Discharge Summaries Results Value Date Source Discharge Summary DATE OF ADMI SSION 03/19/2012. DATE OF DISCHARGE 03/22/2012. HOSPITAL COURSE This was a 42-year-old white female who presented approximately one week status post ventral abdominal hernia repair with synthetic mesh with acute onset of severe abdominal pain and vomiting. CT scan on admission revealed very distended loops of small bowel extending into the ileal J pouch and into the anus. The patient was noted to have a leukocytosis of 15,000 white blood cells. The patient was afebrile, however. The patient was placed on IV antibiotics, n.p.o., and close observation. This patient slowly improved with lessening pain. Vomiting resolved. The patient's diet was advanced. The patient began having full bowel function. Her abdominal films improved. The patient continued to get better and was subsequently discharged in good condition on 03/22/2012. The patient was told to avoid exercise. The patient was placed on Cipro 500 mg b.i.d. and Flagyl 500 mg b.i.d. for 7 days. The patient was told to return in 2 weeks for recheck. The patient was instructed on a soft diet. FINAL DIAGNOSIS Abdominal pain of uncertain etiology with probable pouchitis and possible ileus. BDG/rk C.T. C.T. E: 03/23/2012 09:27 C.T./ Conf# [id number] Doc#: [id number] cc: 03/23/2012 [facility] Discharge Summary DATE OF ADMI SSION 03/12/2012 DATE OF DISCHARGE 03/13/2012 This was a 42-year-old white female who presented with a ventral abdominal hernia. The hernia was repaired with synthetic mesh. The patient subsequently had an unremarkable postoperative course, being afebrile throughout her hospital stay. The patient had bowel activity and tolerated regular food without problems. The patient subsequently discharged on the next day on 03/13/2012. The patient was told to avoid exercise and take a regular diet. The patient was given Percocet 5 mg 1 to 2 q.4h p.r.n. pain. The patient told to return in 2 weeks for recheck. FINAL DIAGNOSIS Recurrent ventral abdominal hernia. BDG/valentina C.T. C.T. E: 03/14/2012 15:43 C.T./ Conf# [id number] Doc#: [id number] cc: 03/14/2012 [facility] History and Physicals Results Value Date Source History and Physical HISTORY O F PRESENT ILLNESS This is a 42-year-old white female who is 1 week status post uncomplicated repair of a small ventral abdominal hernia with Marlex mesh laying over the repair in the subcutaneous tissue. The patient was doing quite well when approximately 12 hours ago underwent a sudden onset of acute abdominal pain, nausea and vomiting. The patient has had continued watery diarrhea. ALLERGIES SULFA AND COMPAZINE. MEDICATIONS None. HABITS None. PAST MEDICAL HISTORY In 10/2009, the patient underwent a restorative proctocolectomy with ileoanal J pouch procedure and diverting loop ileostomy. In 01/2010, the patient underwent a takedown of the diverting loop ileostomy. In 05/2010, the patient underwent an operative repair for a small ventral abdominal hernia. This was done without synthetic mesh. The patient has had a history of a pulmonary embolism and was treated with Coumadin for nearly 1 year. The patient had a deep venous thrombosis. REVIEW OF SYSTEMS Fourteen point review of systems is otherwise unremarkable. The patient otherwise has been in good health and has had excellent control of her bowel movements. FAMILY HISTORY Unremarkable. SOCIAL HISTORY The patient lives in [place], [place]. , has children, is employed. PHYSICAL EXAMINATION VITAL SIGNS: Temperature 98, blood pressure 130/80, pulse 80 and regular, and respirations 18. GENERAL: This is a well-developed white female in mild abdominal distress. HEENT: Without masses. No JVD or bruits. LUNGS: Clear bilaterally. CARDIOVASCULAR: Regular rate and rhythm without murmurs or gallops. ABDOMEN: Abdomen is mildly tender generally. There is no distention. The abdomen is soft. There is noted to be a well healing abdominal incision. EXTREMITIES: Without edema, cyanosis, limitation of movement. NEUROLOGIC: Intact bilaterally. LABORATORY DATA WBC is 14.3, hemoglobin 14.6, 86 polys, 9 lymphs, 4 monocytes. Sodium 137, potassium 3.8, chloride 103, CO2 23, glucose 114, creatinine 0.5, BUN 13, alkaline phosphatase 47, lipase 32, SGPT 16. Urinalysis negative. Abdominal films reveal moderate small distention, possible bowel obstruction. DIAGNOSTIC IMPRESSION Possible ileus versus small bowel obstruction. PLAN IV hydration, close observation. BDG/jf C.T. C.T. E: 03/20/2012 01:12 C.T./ Conf# [id number] Doc#: [id number] cc: 03/20/2012 [facility] History and Physical HISTORY O F PRESENT ILLNESS This is a 42-year-old white female who presents with a recurrence ventral abdominal hernia. The patient had a previous repair without any synthetic mesh. The patient presents now for repair and placement of synthetic mesh. HABITS None. ALLERGIES SULFA. MEDICATIONS DARVOCET, MOTRIN, ATIVAN, PROTONIX. PAST MEDICAL HISTORY Previous restorative proctocolectomy with ileoanal J pouch procedure and temporary ileostomy with subsequent takedown of ileostomy for history of ulcerative colitis. REVIEW OF SYSTEMS The patient otherwise has been in good health and been doing well. A previous abdominal hernia repair. FAMILY HISTORY Unremarkable. SOCIAL HISTORY The patient lives in [place], [place], is employed, , has children. PHYSICAL EXAMINATION HEENT: Without masses. NECK: No JVD or bruits. LUNGS: Clear bilaterally. CARDIOVASCULAR: Regular rate and rhythm without murmurs or gallops. ABDOMEN: Without organomegaly, masses or tenderness to palpation. EXTREMITIES: Without edema, cyanosis, limitation of movement. NEUROLOGIC: Intact bilaterally. DIAGNOSTIC IMPRESSION Recurrent ventral abdominal hernia. PLAN Repair of a recurrent hernia with synthetic mesh. ANISH/deanna C.T. C.T. E: 03/12/2012 20:00 C.Tomy/ David# [id number] Doc#: [id number] cc: 03/12/2012 [facility] Vital Signs Vital Sign Value Date Comments Source Heart Rate 89 bpm 03/22/2012 [facility] er Respiratory Rate 18 br/min 03/22/2012 [facility] Inet NIBP Systolic 126 mm[Hg] 03/22/2012 [facility] Inet NIBP Diastolic 89 mm[Hg] 03/22/2012 [facility] NIBP MAP Calc 101 03/22/2012 [facility] er Temperature 98.0 [degF] 03/22/2012 [facility] Temp Method Oral (03/22/2012 1 5:00:00) 03/22/2012 [facility] Heart Rate Location Auto BP (0 03/20/2012 15:00:00) 03/20/2012 [facility] NIBP MAP 97 mm[Hg] 03/20/2012 [facility] er Pulse Rate 89 bpm 03/19/2012 [facility] er Heart Rate 64 bpm 03/13/2012 [facility] er Temperature 98.5 [degF] 03/13/2012 [facility] Temp Method Oral (03/13/2012 0 8:00:00) 03/13/2012 [facility] NIBP MAP Calc 76 03/13/2012 [facility] er NIBP MAP 91 mm[Hg] 03/13/2012 [facility] er Inet NIBP Systolic 101 mm[Hg] 03/13/2012 [facility] Inet NIBP Diastolic 64 mm[Hg] 03/13/2012 [facility] Respiratory Rate 20 br/min 03/13/2012 [facility] Heart Rate Location Auto BP (0 03/13/2012 04:20:00) 03/13/2012 [facility] Heart Rhythm Sinus/atrial rhyt hm (03/12/2012 18:45:00) 03/12/2012 [facility] Inet NIBP Systolic 139 mmHg 02/20/2010 [facility] Temp Method Oral (02/20/2010 0 4:00:00) 02/20/2010 [facility] Temperature 98.0 DegF 02/20/2010 [facility] er Heart Rate 89 bpm 02/20/2010 [facility] er Respiratory Rate 16 br/min 02/20/2010 [facility] NIBP MAP Calc 106 02/20/2010 [facility] er Inet NIBP Diastolic 89 mmHg 02/20/2010 [facility] Heart Rate Location Auto BP (0 02/19/2010 00:00:00) 02/19/2010 [facility] Pulse Equipment Auto BP (02/16 16:00:00) 02/16/2010 [facility] NIBP MAP 90 mmHg 02/14/2010 [facility] er Vital Signs Status/Type Pre Pr ocedure (02/14/2010 12:15:00) 02/14/2010 [facility] Respiratory Rate 20 br/min 10/17/2009 [facility] Inet NIBP Diastolic 93 mmHg 10/16/2009 [facility] Heart Rate 96 bpm 10/16/2009 [facility] er Inet NIBP Systolic 123 mmHg 10/16/2009 [facility] Systolic Blood Pressure 145 mm Hg 10/16/2009 [facility] Diastolic Blood Pressure 97 mm Hg 10/16/2009 [facility] Temperature 98.8 DegF 10/16/2009 [facility] er Pulse Rate 61 bpm 10/16/2009 [facility] Temp Method Temporal (10/16/20 09 13:28:00) 10/16/2009 [facility] Systolic Blood Pressure 111 mm Hg 10/11/2009 [facility] BP Location Arm, left ( 009 11:00:00) 10/11/2009 [facility] Heart Rate Location Auto BP (1 12/11/2008 11:00:00) 10/11/2009 [facility] Temp Method Oral (10/11/2009 1 1:00:00) 10/11/2009 [facility] Mean Arterial Pressure 89 mmHg 10/11/2009 [facility] Diastolic Blood Pressure 78 mm Hg 10/11/2009 [facility] BP Equipment Auto BP (10/11/20 11:00:00) 10/11/2009 [facility] Respiratory Rate 16 br/min 10/11/2009 [facility] Pulse Rate 93 bpm 10/11/2009 [facility] er Temperature 98.5 DegF 10/11/2009 [facility] er Pulse Equipment Auto BP (10/10 16:00:00) 10/10/2009 [facility] Encounters Location Location Details Encounter Type Encounter Number Reason For Visit Attending Provider ADM Date DC Date Status Source [facility] Outpatient [id number] HARISH SERRANO MD 10/06/2014 10/07/2014 [facility] 006 006 O [id number] SOLITARIO SERRANO MD 10/06/2014 10/06/2014 Active [facility] [place] [address] [id number] Rupesh Serrano 10/06/2014 10/06/2014 [facility] 006 006 I [id number] ABDOMINAL PAIN, PARTIA L SBO MARBIN MANLEY MD 03/19/2012 03/22/2012 Active [facility] 006 006 O [id number] VENTRAL ABD WALL HERNI A MARBIN MANLEY MD 03/12/2012 03/13/2012 Active [facility] Procedures Procedure Code Date Perfomer Comments Source Provider Charges For OFFICE/OUTPATIENT VISIT EST [id number] 10/06/2014 [facility] Tara hanson Thank You ZMAREK 10/06/2014 [facility] Implantation of mesh or other prosthesis for open incisional or ventral hernia repair or mesh for closure of debridement for necrotizing soft tissue infection (List separately in addition to code for the incisional or ventral hernia repair) [id number] 03/12/2012 [facility] Other open incisional hernia repair with graft or prosthesis 53.61 03/12/2012 [facility] er Repair recurrent incisional or ventral h ernia; reducible [id number] 03/12/2012 [facility] er Closure of stoma of small intestine [id number] 02/14/2010 [facility] Other partial resection of small intestine [id number] 02/14/2010 [facility] Other nonoperative replacements [id number] 10/09/2009 [facility] Venous catheterization, not elsewhere classified [id number] 10/06/2009 [facility] er Percutaneous abdominal drainage [id number] 10/05/2009 [facility] Plan of Care No Data Provided for This Section Social History Social History Date Source TypeDescriptionQuantityDate Unknown 10/06/2014 [facility] Assessment and Plan No Data Provided for This Section Family History Value Date S ource Family MemberDiagnosisAge At OnsetStatus Unknown 10/06/2014 [facility] Advance Directives Order Name Results Value Date Source Advance Directives Advance Dir ectives DirectiveYes / NoEffective DateFile Name Unknown 10/06/2014 [facility] Functional Status No Data Provided for This Section
--- OUTSIDE RECORDS SUMMARY | 2020-05-11 07:45 | XMS REPORT | CCD ---
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 Santosh JENSEN CP [phone] Self MD, Referral RP Unavailable None MD, ED PP Unavailable Allergies, Adverse Reactions, Alerts Substance Reaction Status Compazine AGITATION Active hydrocodone nausea Active Sulfa drugs Hives Active Problem List Condition Effective Dates Status No Known Problems1 Active 1Generated from Physician Discharge Information Form. Medications Medication Instructions Start Date End Date Status Metamucil 1 Packet, PO, Daily, 0 Refill(s) 03/22/2012 Ordered ciprofloxacin 500 mg = 1 TAB, PO, BID (2 times a day), 0 03/02 Ordered oral tablet Refill(s) acetaminophen-oxycod 1 TAB, PO, Q4H (Every 4 hours), PRN 03/02 Ordered one 325 mg-5 mg oral Pain, 0 Refill(s) tablet Flagyl 500 mg oral = 1 TAB, PO, BID (2 times a day), 0 2011 Ordered tablet Refill(s) Pepcid 20 mg oral = 1 TAB, PO, BID (2 times a day), 0 012 Ordered tablet Refill(s) pneumococcal 0.5 mL, SOLUTION, IM, Once, 03/19/2012 03/19/2012 Completed 23-valent vaccine 03/19/12 13:00:00, Stop marck e 03/19/12 13:00:00, give on admission (Pneumovax) Tylenol Caplet Extra 1,000 mg, PO, Q6H (Every 6 hours), 03/19 Ordered Strength PRN as needed for pain, 0 R efill(s) Immunizations Vaccine Date Status pneumococcal 23-valent vaccine 03/19/2012 Not Don e Vital Signs Most recent to oldest [Reference Range]: 1 Temperature [96.8-99.7 DegF] 98.0 DegF (03/22/2012 15:00:00) Temp Method Oral (03/22/2012 15:00:00) Heart Rate 89 bpm (03/22/2012 15:00:00) Pulse Rate [60-100 bpm] 89 bpm (03/19/2012 12:21:00) Heart Rate Location Auto BP (03/20/2012 15:00:00) Respiratory Rate [14-20 br/min] 18 br/min (03/22/2012 15:00:00) Inet NIBP Systolic [71-219 mmHg] 126 mmHg (03/22/2012 15:00:00) Inet NIBP Diastolic [50-90 mmHg] 89 mmHg (03/22/2012 15:00:00) NIBP MAP 97 mmHg (03/20/2012 07:00:00) NIBP MAP Calc 101 (03/22/2012 15:00:00) Results HEMATOLOGY Most recent to oldest [Reference Range]: 1 2 3 WBC [4.0-11.0 x10'3/microL] 6.0 x10'3/microL (03/21/2012 06:10:00) 8.9 x10'3/microL (03/20/2012 06:19:00) 13.4 x10'3/microL *HI* (03/19/2012 07:50:00) RBC [3.90-5.60 x10'6/microL] 3.89 x10'6/microL *LOW* (03/21/2012 06:10:00) 3.90 x10'6/microL (03/20/2012 06:19:00) 4.79 x10'6/microL (03/19/2012 07:50:00) Hgb [12.0-16.0 g/dL] 12.0 g/dL (03/21/2012 06:10:00) 12.0 g/dL (03/20/2012 06:19:00) 14.6 g/dL (03/19/2012 07:50:00) Hct [35-47 %] 35 % (03/21/2012 06:10:00) 35 % (03/20/2012 06:19:00) 43 % (03/19/2012 07:50:00) Platelet [140-400 x10'3/microL] 172 x10'3/microL (03/21/2012 06:10:00) 172 x10'3/microL (03/20/2012 06:19:00) 206 x10'3/microL (03/19/2012 07:50:00) MCV [81-99 fL] 90 fL (03/21/2012 06:10:00) 90 fL (03/20/2012 06:19:00) 90 fL (03/19/2012 07:50:00) MCH [27-34 pg] 31 pg (03/21/2012 06:10:00) 31 pg (03/20/2012 06:19:00) 30 pg (03/19/2012 07:50:00) MCHC [32-36 g/dL] 34 g/dL (03/21/2012 06:10:00) 34 g/dL (03/20/2012 06:19:00) 34 g/dL (03/19/2012 07:50:00) RDW [<=14.5 %] 13.4 % (03/21/2012 06:10:00) 13.3 % (03/20/2012 06:19:00) 13.6 % (03/19/2012 07:50:00) MPV [6.5-10.4 fL] 9.4 fL (03/21/2012 06:10:00) 8.9 fL (03/20/2012 06:19:00) 9.6 fL (03/19/2012 07:50:00) Neutrophils % [44-76 %] 61 % (03/21/2012 06:10:00) 73 % (03/20/2012 06:19:00) 86 % *HI* (03/19/2012 07:50:00) Lymphocytes % [13-43 %] 24 % (03/21/2012 06:10:00) 15 % (03/20/2012 06:19:00) 9 % *LOW* (03/19/2012 07:50:00) Monocytes % [0-13 %] 10 % (03/21/2012 06:10:00) 8 % (03/20/2012 06:19:00) 4 % (03/19/2012 07:50:00) Eosinophils % [0-7 %] 5 % (03/21/2012 06:10:00) 3 % (03/20/2012 06:19:00) 0 % (03/19/2012 07:50:00) Basophils % [0-3 %] 1 % (03/21/2012 06:10:00) 0 % (03/20/2012 06:19:00) 0 % (03/19/2012 07:50:00) Neutrophils Abs [1.4-7.2 x10'3/microL] 3.6 x10'3/micro L (03/21/2012 06:10:00) 6.6 x10'3/microL (03/20/2012 06:19:00) 11.5 x10'3/microL *HI* (03/19/2012 07:50:00) Lymphocytes Abs [1.2-3.4 x10'3/microL] 1.4 x10'3/micro L (03/21/2012 06:10:00) 1.4 x10'3/microL (03/20/2012 06:19:00) 1.2 x10'3/microL (03/19/2012 07:50:00) Monocytes Abs [0.1-0.6 x10'3/microL] 0.6 x10'3/microL (03/21/2012 06:10:00) 0.7 x10'3/microL *HI* (03/20/2012 06:19:00) 0.5 x10'3/microL (03/19/2012 07:50:00) Eosinophils Abs [0.0-0.5 x10'3/microL] 0.3 x10'3/micro L (03/21/2012 06:10:00) 0.3 x10'3/microL (03/20/2012 06:19:00) 0.1 x10'3/microL (03/19/2012 07:50:00) Basophils Abs [0.0-0.2 x10'3/microL] 0.0 x10'3/microL (03/21/2012 06:10:00) 0.0 x10'3/microL (03/20/2012 06:19:00) 0.0 x10'3/microL (03/19/2012 07:50:00) CHEMISTRY Most recent to oldest [Reference Range]: 1 2 3 Sodium [136-145 mmol/L] 136 mmol/L (03/21/2012 06:10:00) 137 mmol/L (03/20/2012 06:19:00) 137 mmol/L (03/19/2012 07:50:00) Potassium [3.5-5.1 mmol/L] 3.8 mmol/L (03/21/2012 06:10:00) 3.6 mmol/L (03/20/2012 06:19:00) 3.8 mmol/L (03/19/2012 07:50:00) Chloride [98-107 mmol/L] 109 mmol/L *HI* (03/21/2012 06:10:00) 107 mmol/L (03/20/2012 06:19:00) 103 mmol/L (03/19/2012 07:50:00) CO2 [22-29 mmol/L] 23 mmol/L (03/21/2012 06:10:00) 25 mmol/L (03/20/2012 06:19:00) 23 mmol/L (03/19/2012 07:50:00) AGAP [3-19 mmol/L] 4 mmol/L (03/21/2012 06:10:00) 5 mmol/L (03/20/2012 06:19:00) 11 mmol/L (03/19/2012 07:50:00) Glucose [70-100 mg/dL] 103 mg/dL *HI* (03/21/2012 06:10:00) 117 mg/dL *HI* (03/20/2012 06:19:00) 114 mg/dL *HI* (03/19/2012 07:50:00) BUN [8-20 mg/dL] 2 mg/dL *LOW* (03/21/2012 06:10:00) 4 mg/dL *LOW* (03/20/2012 06:19:00) 13 mg/dL (03/19/2012 07:50:00) Creatinine [0.7-1.2 mg/dL] 0.5 mg/dL 1 *LOW* (03/21/2012 06:10:00) 0.7 mg/dL 2 (03/20/2012 06:19:00) 0.5 mg/dL 3 *LOW* (03/19/2012 07:50:00) Calcium [8.6-10.2 mg/dL] 9.0 mg/dL (03/21/2012 06:10:00) 8.8 mg/dL (03/20/2012 06:19:00) 9.9 mg/dL (03/19/2012 07:50:00) GFR (MDRD) >110.0 mL/min/1.73 m2 4 *NA* (03/21/2012 06:10:00) 98.7 mL/min/1.73 m2 5 *NA* (03/20/2012 06:19:00) >110.0 mL/min/1.73 m2 6 *NA* (03/19/2012 07:50:00) Est CrCL (CG) 109.8 mL/min 7 (03/21/2012 06:10:00) 78.4 mL/min 8 (03/20/2012 06:19:00) 109.8 mL/min 9 (03/19/2012 07:50:00) Albumin Level [3.5-5.2 g/dL] 4.5 g/dL (03/19/2012 07:50:00) Total Protein [6.6-8.7 g/dL] 7.5 g/dL (03/19/2012 07:50:00) Alk Phos [40-130 Inter. Units/L] 47 Inter. Units/L (03/19/2012 07:50:00) Lipase [13-60 Units/L] 32 Units/L (03/19/2012 07:50:00) AST [0-40 Units/L] 22 Units/L (03/19/2012 07:50:00) ALT [0-33 Inter. Units/L] 16 Inter. Units/L (03/19/2012 07:50:00) Bili Total [0.0-1.2 mg/dL] 0.6 mg/dL (03/19/2012 07:50:00) 1Interpretive Data: The presence of ketone bodies can cause artificially high results in serum, plasma and urine. 2Interpretive Data: The presence of ketone bodies can cause artificially high results in serum, plasma and urine. 3Interpretive Data: The presence of ketone bodies can cause artificially high results in serum, plasma and urine. 4Result Comment: GFR calculated based on MDRD abbreviated formula. Age(years) Average GFR 20-29 116 ml/min/1.73 m2 30-39 107 ml/min/1.73 m2 40-49 99 ml/min/1.73 m2 50-59 93 ml/min/1.73 m2 60-69 85 ml/min/1.73 m2 70+ 75 ml/min/1.73 m2 Acceptable GFR =>60 ml/min/1.73 m2 Chronic Kidney Disease <60 ml/min/1.73 m2 Kidney Failure <15 ml/min/1.73 m2 5Result Comment: GFR calculated based on MDRD abbreviated formula. Age(years) Average GFR 20-29 116 ml/min/1.73 m2 30-39 107 ml/min/1.73 m2 40-49 99 ml/min/1.73 m2 50-59 93 ml/min/1.73 m2 60-69 85 ml/min/1.73 m2 70+ 75 ml/min/1.73 m2 Acceptable GFR =>60 ml/min/1.73 m2 Chronic Kidney Disease <60 ml/min/1.73 m2 Kidney Failure <15 ml/min/1.73 m2 6Result Comment: GFR calculated based on MDRD abbreviated formula. Age(years) Average GFR 20-29 116 ml/min/1.73 m2 30-39 107 ml/min/1.73 m2 40-49 99 ml/min/1.73 m2 50-59 93 ml/min/1.73 m2 60-69 85 ml/min/1.73 m2 70+ 75 ml/min/1.73 m2 Acceptable GFR =>60 ml/min/1.73 m2 Chronic Kidney Disease <60 ml/min/1.73 m2 Kidney Failure <15 ml/min/1.73 m2 7Result Comment: Estimated Creatinine Clearance calculated based on the Cockcroft-Gault formula. 8Result Comment: Estimated Creatinine Clearance calculated based on the Cockcroft-Gault formula. 9Result Comment: Estimated Creatinine Clearance calculated based on the Cockcroft-Gault formula. URINE Most recent to oldest [Reference Range]: 1 2 3 UA Color Yellow (03/19/2012 10:20:00) UA pH [5.0-8.0] 6.5 (03/19/2012 10:20:00) UA Spec Grav [1.001-1.030] >=1.030 (03/19/2012 10:20:00) UA Glucose [Negative mg/dL] Negative mg/dL (03/19/2012 10:20:00) UA Bili [Negative] Negative (03/19/2012 10:20:00) UA Ketones [Negative mg/dL] Negative mg/dL (03/19/2012 10:20:00) UA Blood [Negative] Negative (03/19/2012 10:20:00) UA Protein [Negative mg/dL] Trace mg/dL *ABN* (03/19/2012 10:20:00) UA Nitrite [Negative] Negative (03/19/2012 10:20:00) UA Leuk Est [Negative] Negative (03/19/2012 10:20:00) UA Urobilinogen [0.2-1.0 EU per dL] 0.2 EU per dL (03/19/2012 10:20:00) UA Spec Type Clean Catch (03/19/2012 10:20:00) Microscopic? No 10 (03/19/2012 10:20:00) 10Interpretive Data: When result = No, Microscopic is not indicated. Specimen is held for 3 days. Call [phone] if further testing is needed. Procedures Procedures Date Related Diagnosis
--- OUTSIDE RECORDS SUMMARY | 2020-05-11 07:46 | XMS REPORT | CCD ---
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 Name Role Phone PP Unavailable CCM Unavailable Summary Purpose Interface Exchange Insurance Providers Payer name Policy type / Coverage type Covered green party ID Effective Begin Date Effective End Date Blue Cross Blue [facility] e Cross/Blue Shield [id number] Unknown Unk nown Family history Sister Diagnosis Age At Onset genetic disease Unknown Bleeding disorders Unknown Mother Diagnosis Age At Onset Skin cancer Unknown Hypertension Unknown genetic disease Unknown Bleeding disorders Unknown Arthritis Unknown Father Diagnosis Age At Onset Cancer Unknown Hypercholesterolemia Unknown Social History Social History Element Codes Description Effective Dates Marital status Unknown M wanda Cee 07/02/2016 Number of children Unknown 2 07/02/2016 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 Unknown Has never used illegal drugs 016 Allergies, Adverse Reactions, Alerts Substance Reaction Codes Entered Date Inactivated Date Status SULFA (SULFONAMIDE A NTIBIOTICS) hives, Unknown 07/02/20 16 No Inactive Date Active Past Medical History Illness Codes Condition Status Onset Date Resolved Date Dysuria ICD-9: 788.1 ICD-10: R30.0 Active 05/02/2017 Unknown Cough ICD-9: 786.2 ICD-10: R05 Active 07/30/2017 Unknown Pneumonia, unspecifi ed organism ICD-9: 486 ICD-10: J18.9 Active 01/29/2019 Unknown Other hypertrophic d isorders of the skin ICD-9: 701.9 ICD-10: L91.8 Active 08/04/2018 Unknown Encounter for genera l adult medical examination without abnormal findings ICD-9: V70.0 ICD-10: Z00.00 Active 07/01/2016 Unknown Varicose veins of ri ght lower extremity with pain ICD-9: 454.8 ICD-10: I83.811 Active 05/19/2018 Unknown Acute anal fissure ICD- 9: 565.0 ICD-10: K60.0 Active 07/30/2017 Unknown 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 Active 07/30/2017 Unknown Gastro-esophageal re flux disease without esophagitis ICD-9: 530.81 ICD-10: K21.9 Active 07/30/2017 Unknown Problems Condition Codes Effectiv e Dates Condition Status Dysuria ICD-9: 788.1 ICD-10: R30.0 05/02/2017 Active Cough ICD-9: 786.2 ICD-10: R05 07/30/2017 Active Pneumonia, unspecifi ed organism ICD-9: 486 ICD-10: J18.9 01/29/2019 Active Other hypertrophic d isorders of the skin ICD-9: 701.9 ICD-10: L91.8 08/04/2018 Active Encounter for genera l adult medical examination without abnormal findings ICD-9: V70.0 ICD-10: Z00.00 07/01/2016 Active Varicose veins of ri ght lower extremity with pain ICD-9: 454.8 ICD-10: I83.811 05/19/2018 Active Acute anal fissure ICD- 9: 565.0 ICD-10: K60.0 07/30/2017 Active 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 07/30/2017 Active Gastro-esophageal re flux disease without esophagitis ICD-9: 530.81 ICD-10: K21.9 07/30/2017 Active Medications Medication Codes Instruc tions Start Date Stop Date Sta tus Fill Instructions Xarelto 20 mg tablet RxNorm: 7566679 TAKE ONE TABLET BY MOUTH DAILY 05/17/2019 05/10/2020 Ac tive Macrobid 100 mg capsule RxNorm: 616094 1 Capsule(s) PO BID 03/24/2019 03/30/2019 Inactive dc augmentin Macrobid 100 mg capsule RxNorm: 627494 1 Capsule(s) PO BID 03/24/2019 03/23/2019 Inactive Augmentin 500 mg-125 mg tablet RxNorm: 952565 1 Tablet(s) PO TID 03/19/2019 03/23/2019 Inactive cefdinir 300 mg capsule RxNorm: 497005 1 Capsule(s) PO BID 01/29/2019 02/04/2019 Inactive Zithromax Z-Papa 250 mg tablet RxNorm: 427763 1 Tablet(s) PO UD 01/29/2019 02/02/2019 Inactive Keflex 500 mg capsule RxNorm: 108747 1 Capsule(s) PO QID 01/15/2019 01/28/2019 Inactive Keflex 500 mg capsule RxNorm: 508268 1 Capsule(s) PO QID 11/04/2018 11/10/2018 Inactive Pyridium 100 mg tablet RxNorm: 9873836 1 Tablet(s) PO TID 11/04/2018 11/10/2018 Inactive Pyridium 100 mg tablet RxNorm: 2162922 1 Tablet(s) PO TID 11/04/2018 11/03/2018 Inactive Xarelto 20 mg tablet RxNorm: 0376144 1 Tablet(s) PO daily 05/19/2018 05/13/2019 Inactive Tessalon Perles 100 mg capsule RxNorm: 645061 1 Capsule(s) PO TID a s needed 07/30/2017 08/28/2017 In active Procto-Papa 1 % topic al cream perineal applicator RxNorm: 890522 1 Application RTL mumtaz ly 07/30/2017 08/05/2017 Inactive omeprazole 20 mg cap denise,delayed release RxNorm: 862811 1 Capsule(s) PO daily 07/30/2017 08/28/2017 In active Keflex 500 mg capsule RxNorm: 166436 1 Capsule(s) PO TID 05/02/2017 05/01/2017 Inactive Keflex 500 mg capsule RxNorm: 452548 1 Capsule(s) PO TID 05/02/2017 08/03/2018 Inactive Claritin 10 mg tablet RxNorm: 913547 1 Tablet(s) PO daily No Start Date Active Imodium oral RxNorm: 14428 oral No Start Date Active Xarelto 20 mg tablet RxNorm: 1340206 1 Tablet(s) PO daily No Start Date 05/18/2018 Inactive Medication Administered No Medication Administered data Immunizations No Immunization data Assessments Condition Codes Effectiv e Dates Dysuria ICD-10: R30.0 ICD-9: 788.1 03/19/2019 Cough ICD-10: R05 ICD-9: 786.2 01/29/2019 Pneumonia, unspecified organism ICD- 10: J18.9 ICD-9: 486 01/29/2019 Other hypertrophic disorders of the skin ICD-10: L91.8 ICD-9: 701.9 08/04/2018 Varicose veins of right lower extremity with pain ICD-10: I83.811 ICD-9: 454.8 05/19/2018 Encounter for general adult medical exam ination without abnormal findings ICD-10: Z00.00 ICD-9: V70.0 05/19/2018 Acute anal fissure ICD-10: K60.0 ICD-9: 565.0 07/31/2017 Acquired coagulation factor deficiency ICD-10: D68.4 ICD-9: 286.7 07/30/2017 Gastro-esophageal reflux disease without esophagitis ICD-10: K21.9 ICD-9: 530.81 07/30/2017 Reason For Visit Reason For Visit Effective Dates Notes urinary urgency 03/19/2019 sinus congestion 01/29/2019 acrochordon (skin tags) 08/04/2018 well woman exam (40-65 years) 05/19/2018 cough 07/30/2017 blood i n stool callus 07/02/2016 on her right shoulder Results Observation Observation Code Item Item Code Result Date Culture Urine [id number] URI NE CULTURE SEE NOTES 03/12/2018 Urine Culture Ucult Comp lete Growth of aerobe sent to ref lab 03/11/2018 Urine Culture Ucult Comp lete Growth of aerobe sent to ref lab 05/03/2017 Review of Systems System Result Effective Dates Constitutional No recent illness 03/19/2019 Constitutional No chills 03/19/2019 Constitutional No diaphoresis 03/19/2019 Constitutional No fever 03/19/2019 Eyes No eye erythema Ears/Nose/Throat/Neck No nasal discharge 03/19/2019 Cardiovascular No chest pain/pressure 03/19/2019 Respiratory No cough Gastrointestinal No abdominal pain 03/19/2019 Genitourinary/Nephrology dysuria 03/19/2019 Genitourinary/Nephrology urinary urgency 03/19/2019 Genitourinary/Nephrology urinary frequency 03/19/2019 Neurologic No alteration of consciousness 03/19/2019 Neurologic No mental status change 03/19/2019 Constitutional recent illness 01/29/2019 Constitutional No anorexia 01/29/2019 Constitutional No night sweats 01/29/2019 Constitutional chills Constitutional diaphoresis 01/29/2019 Constitutional fatigue 0 01/29/2019 Constitutional fever 12/2018 Constitutional No insomnia 01/29/2019 Constitutional No malaise 01/29/2019 Constitutional No weight loss 01/29/2019 Constitutional No weight gain 01/29/2019 Eyes No eye erythema 12/2018 Eyes No eye discharge Ears/Nose/Throat/Neck nasal allergies 01/29/2019 Ears/Nose/Throat/Neck nasal discharge 01/29/2019 Ears/Nose/Throat/Neck sinus congestion 01/29/2019 Ears/Nose/Throat/Neck sore throat 01/29/2019 Ears/Nose/Throat/Neck otalgia 01/29/2019 Cardiovascular No chest pain/pressure 01/29/2019 Cardiovascular No dyspnea 01/29/2019 Respiratory productive sputum 01/29/2019 Respiratory cough 2018 Respiratory chest congestion 01/29/2019 Gastrointestinal No abdominal pain 01/29/2019 Gastrointestinal No constipation 01/29/2019 Gastrointestinal No diarrhea 01/29/2019 Genitourinary/Nephrology No dysuria 01/29/2019 Musculoskeletal No joint complaint 01/29/2019 Dermatologic No rash 12/2018 Neurologic No alteration of consciousness 01/29/2019 Constitutional No recent illness 08/04/2018 Constitutional No anorexia 08/04/2018 Constitutional No night sweats 08/04/2018 Constitutional No chills 08/04/2018 Constitutional No diaphoresis 08/04/2018 Constitutional No fatigue 08/04/2018 Constitutional No fever 08/04/2018 Constitutional No insomnia 08/04/2018 Constitutional No malaise 08/04/2018 Constitutional No weight loss 08/04/2018 Constitutional No weight gain 08/04/2018 Dermatologic skin lesion 08/04/2018 Constitutional No recent illness 05/19/2018 Constitutional No chills 05/19/2018 Constitutional No fatigue 05/19/2018 Constitutional No fever 05/19/2018 Constitutional No insomnia 05/19/2018 Constitutional No malaise 05/19/2018 Eyes No blindness 2017 Eyes No vision change Ears/Nose/Throat/Neck No dental pain 05/19/2018 Ears/Nose/Throat/Neck No dizziness 05/19/2018 Ears/Nose/Throat/Neck No dysphagia 05/19/2018 Ears/Nose/Throat/Neck No headache 05/19/2018 Ears/Nose/Throat/Neck No hearing loss 05/19/2018 Ears/Nose/Throat/Neck No nasal allergies 05/19/2018 Ears/Nose/Throat/Neck No sore throat 05/19/2018 Ears/Nose/Throat/Neck No postnasal drip 05/19/2018 Ears/Nose/Throat/Neck No sinus congestion 05/19/2018 Cardiovascular No chest pain/pressure 05/19/2018 Cardiovascular No dyspnea 05/19/2018 Cardiovascular No edema 05/19/2018 Cardiovascular No exercise intolerance 05/19/2018 Cardiovascular No fatigue 05/19/2018 Cardiovascular No near-syncope/dizziness 05/19/2018 Respiratory No chest tightness 05/19/2018 Respiratory No cough Respiratory No dyspnea 0 05/19/2018 Respiratory No pedal edema 05/19/2018 Gastrointestinal No abdominal pain 05/19/2018 Gastrointestinal No constipation 05/19/2018 Gastrointestinal No diarrhea 05/19/2018 Gastrointestinal No gastroesophageal reflu x 05/19/2018 Gastrointestinal No nausea 05/19/2018 Gastrointestinal No vomiting 05/19/2018 Genitourinary/Nephrology No dysuria 05/19/2018 Genitourinary/Nephrology No nocturia 05/19/2018 Genitourinary/Nephrology No urinary incontinence 05/19/2018 Musculoskeletal No stiffness 05/19/2018 Musculoskeletal No swelling 05/19/2018 Musculoskeletal No muscle weakness 05/19/2018 Musculoskeletal No myalgias 05/19/2018 Dermatologic rash 2017 Dermatologic sores 05/19 Dermatologic No scar Neurologic No dizziness 05/19/2018 Neurologic No headache 0 05/19/2018 Neurologic No neck pain 05/19/2018 Neurologic No syncope Psychiatric No anxiety 0 05/19/2018 Psychiatric No depression 05/19/2018 Constitutional No recent illness 07/30/2017 Constitutional No chills 07/30/2017 Constitutional No fatigue 07/30/2017 Constitutional No fever 07/30/2017 Constitutional No insomnia 07/30/2017 Constitutional No malaise 07/30/2017 Eyes No blindness 2016 Eyes No vision change Ears/Nose/Throat/Neck No dental pain 07/30/2017 Ears/Nose/Throat/Neck No dizziness 07/30/2017 Ears/Nose/Throat/Neck No dysphagia 07/30/2017 Ears/Nose/Throat/Neck No headache 07/30/2017 Ears/Nose/Throat/Neck No hearing loss 07/30/2017 Ears/Nose/Throat/Neck No nasal allergies 07/30/2017 Ears/Nose/Throat/Neck No sore throat 07/30/2017 Ears/Nose/Throat/Neck No postnasal drip 07/30/2017 Ears/Nose/Throat/Neck No sinus congestion 07/30/2017 Cardiovascular No chest pain/pressure 07/30/2017 Cardiovascular No dyspnea 07/30/2017 Cardiovascular No edema 07/30/2017 Cardiovascular No exercise intolerance 07/30/2017 Cardiovascular No fatigue 07/30/2017 Cardiovascular No near-syncope/dizziness 07/30/2017 Respiratory No chest tightness 07/30/2017 Respiratory No cough Respiratory No dyspnea 0 07/30/2017 Respiratory No pedal edema 07/30/2017 Gastrointestinal No abdominal pain 07/30/2017 Gastrointestinal No constipation 07/30/2017 Gastrointestinal No diarrhea 07/30/2017 Gastrointestinal No gastroesophageal reflu x 07/30/2017 Gastrointestinal No nausea 07/30/2017 Gastrointestinal No vomiting 07/30/2017 Genitourinary/Nephrology No dysuria 07/30/2017 Genitourinary/Nephrology No nocturia 07/30/2017 Genitourinary/Nephrology No urinary incontinence 07/30/2017 Musculoskeletal No stiffness 07/30/2017 Musculoskeletal No swelling 07/30/2017 Musculoskeletal No muscle weakness 07/30/2017 Musculoskeletal No myalgias 07/30/2017 Dermatologic rash 2016 Dermatologic sores 07/30 Dermatologic No scar Neurologic No dizziness 07/30/2017 Neurologic No headache 0 07/30/2017 Neurologic No neck pain 07/30/2017 Neurologic No syncope Psychiatric No anxiety 0 07/30/2017 Psychiatric No depression 07/30/2017 Constitutional No recent illness 07/02/2016 Constitutional No chills 07/02/2016 Constitutional No fatigue 07/02/2016 Constitutional No fever 07/02/2016 Constitutional No insomnia 07/02/2016 Constitutional No malaise 07/02/2016 Eyes No blindness 2015 Eyes No vision change Ears/Nose/Throat/Neck No dental pain 07/02/2016 Ears/Nose/Throat/Neck No dizziness 07/02/2016 Ears/Nose/Throat/Neck No dysphagia 07/02/2016 Ears/Nose/Throat/Neck No headache 07/02/2016 Ears/Nose/Throat/Neck No hearing loss 07/02/2016 Ears/Nose/Throat/Neck No nasal allergies 07/02/2016 Ears/Nose/Throat/Neck No sore throat 07/02/2016 Ears/Nose/Throat/Neck No postnasal drip 07/02/2016 Ears/Nose/Throat/Neck No sinus congestion 07/02/2016 Cardiovascular No chest pain/pressure 07/02/2016 Cardiovascular No dyspnea 07/02/2016 Cardiovascular No edema 07/02/2016 Cardiovascular No exercise intolerance 07/02/2016 Cardiovascular No fatigue 07/02/2016 Cardiovascular No near-syncope/dizziness 07/02/2016 Respiratory No chest tightness 07/02/2016 Respiratory No cough 01/2016 Respiratory No dyspnea 0 07/02/2016 Respiratory No pedal edema 07/02/2016 Gastrointestinal No abdominal pain 07/02/2016 Gastrointestinal No constipation 07/02/2016 Gastrointestinal No diarrhea 07/02/2016 Gastrointestinal No gastroesophageal reflu x 07/02/2016 Gastrointestinal No nausea 07/02/2016 Gastrointestinal No vomiting 07/02/2016 Genitourinary/Nephrology No dysuria 07/02/2016 Genitourinary/Nephrology No nocturia 07/02/2016 Genitourinary/Nephrology No urinary incontinence 07/02/2016 Musculoskeletal No stiffness 07/02/2016 Musculoskeletal No swelling 07/02/2016 Musculoskeletal No muscle weakness 07/02/2016 Musculoskeletal No myalgias 07/02/2016 Dermatologic rash 2015 Dermatologic sores 07/02 Dermatologic No scar 01/2016 Neurologic No dizziness 07/02/2016 Neurologic No headache 0 07/02/2016 Neurologic No neck pain 07/02/2016 Neurologic No syncope Psychiatric No anxiety 0 07/02/2016 Psychiatric No depression 07/02/2016 Physical Exam Exam Name System Name It em Name Status Result Effective Dates Notes Full Exam - General 1994 Constitutional general appearance Overall: well developed 03/19/2019 None Full Exam - General 1994 Constitutional general appearance Overall: in no acute distress 03/19/2019 None Full Exam - General 1994 Constitutional general appearance Overall: well nourished 03/19/2019 None Full Exam - General 1994 Eyes conjunctiva/eyelids Overall: conjunctiva clear 03/19/2019 None Full Exam - General 1994 Eyes conjunctiva/eyelids Overall: cornea clear 03/19/2019 None Full Exam - General 1994 Eyes conjunctiva/eyelids Overall: eyelids normal 03/19/2019 None Full Exam - General 1995 Ears/Nose/Throat lips/teeth/gingiva Overall: benign lips 03/19/2019 None Full Exam - General 1994 Ears/Nose/Throat oral cavity/pharynx/larynx Overall: oral mucosa clear 03/19/2019 None Full Exam - General 1994 Respiratory respiratory effort/rhythm Overall: no retractions 03/19/2019 None Full Exam - General 1994 Respiratory respiratory effort/rhythm Overall: normal rate 03/19/2019 None Full Exam - General 1994 Cardiovascular auscultation of heart Overall: regular rate 03/19/2019 None Full Exam - General 1994 Cardiovascular auscultation of heart Overall: normal heart sounds 03/19/2019 None Full Exam - General 1994 Musculoskeletal head and neck Overall: head atraumatic 03/19/2019 None Full Exam - General 1994 Neurologic cranial nerves Overall: crainial nerves 2 - 12 grossly intact 03/19/2019 None Full Exam - General 1994 Psychiatric orientation/consciousness Overall: oriented to person, place and time 03/19/2019 None Full Exam - General 1994 Psychiatric mood and affect Overall: normal mood and affect 03/19/2019 None Full Exam - ENT Constitutional general appearance Overall: well nourished 01/29/2019 None Full Exam - ENT Constitutional general appearance Overall: well developed 01/29/2019 None Full Exam - ENT Constitutional general appearance Overall: in no acute distress 01/29/2019 None Full Exam - ENT Ears/Nose/Throat otoscopic exam Overall: external auditory canals normal 01/29/2019 None Full Exam - ENT Ears/Nose/Throat otoscopic exam Right tympanic membrane: erythematou s 01/29/2019 None Full Exam - ENT Ears/Nose/Throat otoscopic exam Left tympanic membrane: intact 01/29/2019 None Full Exam - ENT Ears/Nose/Throat otoscopic exam Left tympanic membrane: mobile 01/29/2019 None Full Exam - ENT Ears/Nose/Throat oropharynx Overall: oral mucosa clear 01/29/2019 None Full Exam - ENT Face and Head palpation Left maxillary sinus: tender 01/29/2019 None Full Exam - ENT Face and Head palpation Right maxillary sinus: tender 01/29/2019 None Full Exam - ENT Respiratory inspection Overall: no retractions 01/29/2019 None Full Exam - ENT Respiratory inspection Overall: normal rate 12/2018 None Full Exam - ENT Respiratory auscultation Left lower lung field: rhonchi 01/29/2019 None Full Exam - ENT Respiratory auscultation Left lower lung field: crackles 01/29/2019 None Full Exam - ENT Cardiovascular auscultation of heart Overall: regular rate 01/29/2019 None Full Exam - ENT Cardiovascular auscultation of heart Overall: normal heart sounds 01/29/2019 None Full Exam - ENT Lymphatic palpation of lymph nodes Overall: shotty lymphadenopathy 01/29/2019 None Full Exam - ENT Integument inspection of skin Overall: no rash, lesions 01/29/2019 None Full Exam - ENT Neurologic orientation Overall: oriented to person, place a nd time 01/29/2019 None Full Exam - Dermatology Constitutional general appearance Overall: well nourished 08/04/2018 None Full Exam - Dermatology Constitutional general appearance Overall: in no acute distress 08/04/2018 None Full Exam - Dermatology Constitutional general appearance Overall: well developed 08/04/2018 None Full Exam - Dermatology Constitutional general appearance Overall: of normal body habitus 08/04/2018 None Full Exam - Dermatology Constitutional general appearance Overall: well groomed 08/04/2018 None Full Exam - Dermatology Integument insp & palp - chest/axillae Location: on the left upper chest 08/04/2018 irritated skin tag near left clavicle and under left breast Full Exam - General 1994 Constitutional general appearance Development: well developed 05/19/2018 None Full Exam - General 1994 Constitutional general appearance Development: appears stated age 0605/19/2018 None Full Exam - General 1994 Constitutional general appearance Hygiene/Attention to Grooming: good hygiene 05/19/2018 None Full Exam - General 1994 Eyes conjunctiva/eyelids Overall: conjunctiva clear 05/19/2018 None Full Exam - General 1994 Eyes conjunctiva/eyelids Overall: cornea clear 05/19/2018 None Full Exam - General 1994 Eyes conjunctiva/eyelids Overall: eyelids normal 05/19/2018 None Full Exam - General 1994 Eyes pupils and irises Overall: pupils equal, round, reactive to light and accomodation 05/19/2018 None Full Exam - General 1994 Ears/Nose/Throat otoscopic exam Overall: external auditory canals clear 05/19/2018 None Full Exam - General 1994 Ears/Nose/Throat otoscopic exam Overall: tympanic membranes clear 05/19/2018 None Full Exam - General 1994 Ears/Nose/Throat lips/teeth/gingiva Overall: benign lips 05/19/2018 None Full Exam - General 1994 Ears/Nose/Throat lips/teeth/gingiva Overall: normal dentition 05/19/2018 None Full Exam - General 1994 Ears/Nose/Throat oral cavity/pharynx/larynx Overall: oral mucosa clear 05/19/2018 None Full Exam - General 1994 Ears/Nose/Throat oral cavity/pharynx/larynx Overall: oropharyngeal mucosa clear 05/19/2018 None Full Exam - General 1994 Ears/Nose/Throat oral cavity/pharynx/larynx Overall: hypopharynx benign 05/19/2018 None Full Exam - General 1994 Ears/Nose/Throat oral cavity/pharynx/larynx Overall: no masses 05/19/2018 None Full Exam - General 1994 Respiratory auscultation Overall: breath sounds clear bilaterally 05/19/2018 None Full Exam - General 1994 Respiratory respiratory effort/rhythm Overall: no retractions 05/19/2018 None Full Exam - General 1994 Respiratory respiratory effort/rhythm Overall: normal rate 05/19/2018 None Full Exam - General 1994 Cardiovascular extremities Overall: no clubbing 05/19/2018 None Full Exam - General 1994 Cardiovascular auscultation of heart Overall: regular rate 05/19/2018 None Full Exam - General 1994 Cardiovascular auscultation of heart Overall: normal heart sounds 05/19/2018 None Full Exam - General 1994 Abdomen abdominal exam Overall: no tenderness 05/19/2018 None Full Exam - General 1994 Abdomen abdominal exam Overall: normal bowel sounds 05/19/2018 None Full Exam - General 1994 Lymphatic neck nodes Overall: anterior cervical chain benign 05/19/2018 None Full Exam - General 1994 Lymphatic neck nodes Overall: posterior cervical chain benign 05/19/2018 None Full Exam - General 1994 Musculoskeletal spine, ribs and pelvis Overall: spine benign 05/19/2018 None Full Exam - General 1994 Musculoskeletal spine, ribs and pelvis Overall: sacroiliac joint benign 05/19/2018 None Full Exam - General 1994 Musculoskeletal spine, ribs and pelvis Overall: good posture 05/19/2018 None Full Exam - General 1994 Musculoskeletal head and neck Overall: head atraumatic 05/19/2018 None Full Exam - General 1994 Musculoskeletal head and neck Overall: cervical spine benign 05/19/2018 None Full Exam - General 1994 Integument inspection of skin Overall: few scattered moles, no gross abnormalities 05/19/2018 None Full Exam - General 1994 Neurologic deep tendon reflexes Overall: deep tendon reflexes intact 05/19/2018 None Full Exam - General 1994 Neurologic cranial nerves Overall: crainial nerves 2 - 12 grossly intact 05/19/2018 None Full Exam - General 1994 Psychiatric orientation/consciousness Overall: oriented to person, place and time 05/19/2018 None Full Exam - General 1994 Psychiatric mood and affect Overall: normal mood and affect 05/19/2018 None Full Exam - General 1994 Cardiovascular extremities Other findings: varicose veins 05/19/2018 right thigh and right kne e medially Full Exam - General 1994 Constitutional general appearance Development: well developed 07/30/2017 None Full Exam - General 1994 Constitutional general appearance Development: appears stated age 0807/30/2017 None Full Exam - General 1994 Constitutional general appearance Hygiene/Attention to Grooming: good hygiene 07/30/2017 None Full Exam - General 1994 Eyes conjunctiva/eyelids Overall: conjunctiva clear 07/30/2017 None Full Exam - General 1994 Eyes conjunctiva/eyelids Overall: cornea clear 07/30/2017 None Full Exam - General 1994 Eyes conjunctiva/eyelids Overall: eyelids normal 07/30/2017 None Full Exam - General 1994 Eyes pupils and irises Overall: pupils equal, round, reactive to light and accomodation 07/30/2017 None Full Exam - General 1994 Ears/Nose/Throat otoscopic exam Overall: external auditory canals clear 07/30/2017 None Full Exam - General 1994 Ears/Nose/Throat otoscopic exam Overall: tympanic membranes clear 07/30/2017 None Full Exam - General 1994 Ears/Nose/Throat lips/teeth/gingiva Overall: benign lips 07/30/2017 None Full Exam - General 1994 Ears/Nose/Throat lips/teeth/gingiva Overall: normal dentition 07/30/2017 None Full Exam - General 1994 Ears/Nose/Throat oral cavity/pharynx/larynx Overall: oral mucosa clear 07/30/2017 None Full Exam - General 1994 Ears/Nose/Throat oral cavity/pharynx/larynx Overall: oropharyngeal mucosa clear 07/30/2017 None Full Exam - General 1994 Ears/Nose/Throat oral cavity/pharynx/larynx Overall: hypopharynx benign 07/30/2017 None Full Exam - General 1994 Ears/Nose/Throat oral cavity/pharynx/larynx Overall: no masses 07/30/2017 None Full Exam - General 1994 Respiratory auscultation Overall: breath sounds clear bilaterally 07/30/2017 None Full Exam - General 1994 Respiratory respiratory effort/rhythm Overall: no retractions 07/30/2017 None Full Exam - General 1994 Respiratory respiratory effort/rhythm Overall: normal rate 07/30/2017 None Full Exam - General 1994 Cardiovascular extremities Overall: no clubbing 07/30/2017 None Full Exam - General 1994 Cardiovascular auscultation of heart Overall: regular rate 07/30/2017 None Full Exam - General 1994 Cardiovascular auscultation of heart Overall: normal heart sounds 07/30/2017 None Full Exam - General 1994 Abdomen abdominal exam Overall: no tenderness 07/30/2017 None Full Exam - General 1994 Abdomen abdominal exam Overall: normal bowel sounds 07/30/2017 None Full Exam - General 1994 Lymphatic neck nodes Overall: anterior cervical chain benign 07/30/2017 None Full Exam - General 1994 Lymphatic neck nodes Overall: posterior cervical chain benign 07/30/2017 None Full Exam - General 1994 Musculoskeletal spine, ribs and pelvis Overall: spine benign 07/30/2017 None Full Exam - General 1994 Musculoskeletal spine, ribs and pelvis Overall: sacroiliac joint benign 07/30/2017 None Full Exam - General 1994 Musculoskeletal spine, ribs and pelvis Overall: good posture 07/30/2017 None Full Exam - General 1994 Musculoskeletal head and neck Overall: head atraumatic 07/30/2017 None Full Exam - General 1994 Musculoskeletal head and neck Overall: cervical spine benign 07/30/2017 None Full Exam - General 1994 Integument inspection of skin Overall: few scattered moles, no gross abnormalities 07/30/2017 None Full Exam - General 1994 Neurologic deep tendon reflexes Overall: deep tendon reflexes intact 07/30/2017 None Full Exam - General 1994 Neurologic cranial nerves Overall: crainial nerves 2 - 12 grossly intact 07/30/2017 None Full Exam - General 1994 Psychiatric orientation/consciousness Overall: oriented to person, place and time 07/30/2017 None Full Exam - General 1994 Psychiatric mood and affect Overall: normal mood and affect 07/30/2017 None Full Exam - General 1994 Abdomen rectal exam Inspection: fissure 07/30/2017 at 6 oclock position Full Exam - General 1994 Constitutional general appearance Development: well developed 07/02/2016 None Full Exam - General 1994 Constitutional general appearance Development: appears stated age 0807/02/2016 None Full Exam - General 1994 Constitutional general appearance Hygiene/Attention to Grooming: good hygiene 07/02/2016 None Full Exam - General 1994 Eyes conjunctiva/eyelids Overall: conjunctiva clear 07/02/2016 None Full Exam - General 1994 Eyes conjunctiva/eyelids Overall: cornea clear 07/02/2016 None Full Exam - General 1994 Eyes conjunctiva/eyelids Overall: eyelids normal 07/02/2016 None Full Exam - General 1994 Eyes pupils and irises Overall: pupils equal, round, reactive to light and accomodation 07/02/2016 None Full Exam - General 1994 Ears/Nose/Throat otoscopic exam Overall: external auditory canals clear 07/02/2016 None Full Exam - General 1994 Ears/Nose/Throat otoscopic exam Overall: tympanic membranes clear 07/02/2016 None Full Exam - General 1994 Ears/Nose/Throat lips/teeth/gingiva Overall: benign lips 07/02/2016 None Full Exam - General 1994 Ears/Nose/Throat lips/teeth/gingiva Overall: normal dentition 07/02/2016 None Full Exam - General 1994 Ears/Nose/Throat oral cavity/pharynx/larynx Overall: oral mucosa clear 07/02/2016 None Full Exam - General 1994 Ears/Nose/Throat oral cavity/pharynx/larynx Overall: oropharyngeal mucosa clear 07/02/2016 None Full Exam - General 1994 Ears/Nose/Throat oral cavity/pharynx/larynx Overall: hypopharynx benign 07/02/2016 None Full Exam - General 1994 Ears/Nose/Throat oral cavity/pharynx/larynx Overall: no masses 07/02/2016 None Full Exam - General 1994 Respiratory auscultation Overall: breath sounds clear bilaterally 07/02/2016 None Full Exam - General 1994 Respiratory respiratory effort/rhythm Overall: no retractions 07/02/2016 None Full Exam - General 1994 Respiratory respiratory effort/rhythm Overall: normal rate 07/02/2016 None Full Exam - General 1994 Cardiovascular extremities Overall: no clubbing 07/02/2016 None Full Exam - General 1994 Cardiovascular auscultation of heart Overall: regular rate 07/02/2016 None Full Exam - General 1994 Cardiovascular auscultation of heart Overall: normal heart sounds 07/02/2016 None Full Exam - General 1994 Abdomen abdominal exam Overall: no tenderness 07/02/2016 None Full Exam - General 1994 Abdomen abdominal exam Overall: normal bowel sounds 07/02/2016 None Full Exam - General 1994 Lymphatic neck nodes Overall: anterior cervical chain benign 07/02/2016 None Full Exam - General 1994 Lymphatic neck nodes Overall: posterior cervical chain benign 07/02/2016 None Full Exam - General 1994 Musculoskeletal spine, ribs and pelvis Overall: spine benign 07/02/2016 None Full Exam - General 1994 Musculoskeletal spine, ribs and pelvis Overall: sacroiliac joint benign 07/02/2016 None Full Exam - General 1994 Musculoskeletal spine, ribs and pelvis Overall: good posture 07/02/2016 None Full Exam - General 1994 Musculoskeletal head and neck Overall: head atraumatic 07/02/2016 None Full Exam - General 1994 Musculoskeletal head and neck Overall: cervical spine benign 07/02/2016 None Full Exam - General 1994 Integument inspection of skin Overall: few scattered moles, no gross abnormalities 07/02/2016 None Full Exam - General 1994 Neurologic deep tendon reflexes Overall: deep tendon reflexes intact 07/02/2016 None Full Exam - General 1994 Neurologic cranial nerves Overall: crainial nerves 2 - 12 grossly intact 07/02/2016 None Full Exam - General 1994 Psychiatric orientation/consciousness Overall: oriented to person, place and time 07/02/2016 None Full Exam - General 1994 Psychiatric mood and affect Overall: normal mood and affect 07/02/2016 None Procedures Procedure Codes Date URINALYSIS NONAUTO W /O SCOPE CPT-4: 78259 03/19/2019 URINALYSIS NONAUTO W /O SCOPE CPT-4: 09652 11/03/2018 REMOVAL OF SKIN TAGS <W/15 CPT-4: 76563 08/04/2018 URINALYSIS NONAUTO W /O SCOPE CPT-4: 73596 03/09/2018 OCCULT BLOOD FECES CPT- 4: 41765 07/31/2017 URINALYSIS NONAUTO W /O SCOPE CPT-4: 87106 05/02/2017 Vital Signs Date Vital 03/19/2019 Blood Pressure 1: 130/76 Code: 8480-6 BMI: 30.2 Code: 09015-5 Heart Rate 1: 80 bpm Height: 5'1" SpO2: 98% Weight: 160 lbs 01/29/2019 Blood Pressure 1: 124/78 Code: 8480-6 BMI: 30.2 Code: 15420-2 Heart Rate 1: 88 bpm Height: 5'1" SpO2: 98% Temperature: 36.7 (C ) / 98.1 (F) Weight: 160 lbs 11/03/2018 Heigh t: 5'1" 08/04/2018 Blood Pressure 1: 122/76 Code: 8480-6 BMI: 29.9 Code: 22271-0 Heart Rate 1: 70 bpm Height: 5'1" SpO2: 98% Weight: 158 lbs 05/19/2018 Blood Pressure 1: 118/76 Code: 8480-6 BMI: 30.2 Code: 87810-3 Heart Rate 1: 72 bpm Height: 5'1" SpO2: 98% Weight: 160 lbs 07/30/2017 Blood Pressure 1: 130/62 Code: 8480-6 BMI: 31.2 Code: 85054-7 Heart Rate 1: 102 bpm Height: 5'1" SpO2: 97% Weight: 165 lbs 07/02/2016 Blood Pressure 1: 116/80 Code: 8480-6 BMI: 31.2 Code: 30786-3 Heart Rate 1: 80 bpm Height: 5'1" SpO2: 97% Weight: 165 lbs Functional Status No Functional Status data History of Present Illness Symptom Name Status Resu lt Effective Date Notes Quality constant 03/19/2019 None Onset and Resolution s udden in onset 03/19/2019 None Onset of Symptom 1 day s ago 03/19/2019 None Onset and Resolution s udden in onset 01/29/2019 None Onset of Symptom 2 wee ks ago 01/29/2019 None Location both ears 01/29/2019 None Onset and Resolution s udden in onset 01/29/2019 None Severity moderate 01/29/2019 None Frequency of Episodes increasing 01/29/2019 None Timing of Episodes all day long 01/29/2019 None Triggers no known asso ciated factors 01/29/2019 None Location on both sides 01/29/2019 None Quality acute 01/29/2019 None acrochordon (skin tags) Location diffusely 08/04/2018 -left shoulder and under left breast acrochordon (skin tags) Onset and Re solution ongoing 08/04/2018 None acrochordon (skin tags) Significant Medical Conditions rubbing 08/04/2018 None well woman exam (40-65 years) Menstr ual History regular menses 05/19/2018 None well woman exam (40-65 years) Menstr ual History normal flow 05/19/2018 N one well woman exam (40-65 years) Contro l none 05/19/2018 None well woman exam (40-65 years) Nutrit ion and Exercise moderate exercise 05/19/2018 None well woman exam (40-65 years) Health Guidance self-breast exam 05/19/2018 None well woman exam (40-65 years) Health Guidance baseline mammogram 05/19/2018 None cough Location in the th roat 07/30/2017 None cough Quality constant 07/30/2017 None cough Quality dry 07/30/2017 None cough Onset and Resolution sudden in onset 07/30/2017 None cough Onset of Symptom 2 weeks ago 07/30/2017 None cough Frequency of Episodes daily 07/30/2017 None ~generic Quality intermi ttent 07/30/2017 None callus Onset and Resolution ongoing 07/02/2016 None cyst Quality dull pain 07/02/2016 None cyst Onset and Resolution ongoing 07/02/2016 None cyst Location on left up per back 07/02/2016 None cyst Quality intermittent 07/02/2016 None Advance Directives No Advance Directive data Encounters Encounter Performer Loca tion Codes Date EST. PATIENT, LEVEL III Diagnosis: Dysuria[ICD10: R30.0] [facility] CPT-4: 05650 03/19/2019 ([id number]) [id number] EST. P ATIENT, LEVEL III Diagnosis: Cough[ICD10: R05] Diagnosis: Pneumonia, unspecified organism[ICD10: J18.9] [facility] CPT-4: 09846 01/29/2019 ([id number]) PREV VISIT E ST AGE 40-64 Diagnosis: Encounter for general adult medical examination without abnormal findings[ICD10: Z00.00] [facility] CPT-4: 94758 05/19/2018 ([id number]) 20375 EST. 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 Antibiotic electronically prescribed to pt's pharmacy of choice. Pt to call if symptoms do not improve. 03/19/2019 Appointment: [phone] [facility] ([facility] 03/19/2019 Patient Education: Patient Medication Summary Completed 03/19/2019 Care Plan: Urine Culture Pending 03/19/2019 Visit Plan: Pneumonia - Pt has been diagnosed with pneumonia by physical exam. A chest xray has been ordered as have antibiotics. The pt is aware of the diagnosis and the need for acute treatment of this illness. 01/29/2019 Appointment: [facility] [phone] [phone] ([place] min) Complex 01/29/2019 Patient Education: Patient Medication Summary Completed 01/29/2019 Care Plan: C URINE RT Pending 11/06/2018 Care Plan: Urine Culture Pending 11/06/2018 Appointment: Lab Draw 11/03/2018 Patient Education: Patient Medication Summary Completed 11/03/2018 Visit Plan: Wound Instructions - Pt was instructed to keep the wound clean, wash with antibacterial soap, use triple antibiotic ointment, call if redness, pustular drainage, or any other acute concerns. 08/04/2018 Appointment: Caty Jordan [facility] [phone] [phone] [place] (30 min) Complex 08/04/2018 Patient Education: Patient Medication Summary Completed 08/04/2018 Referral: [facility] Referral Completed 06/16/2018 Visit Plan: Well Adult - pt was cou nseled about diet, exercise, and encouraged to follow a heart healthy diet and increase activity level. The patient was instructed to RTC yearly for well adult exams and PRN for acute illnesses. The pt was also instructed to have yearly labs for check of cholesterol, thyroid, chem panel, CBC, and renal functioning. Painful Varicose veins right leg - referral to dr. rebolledo vascular surgeon for evaluation for possible treatment. Hx of DVT - continue with xarelto 05/19/2018 Appointment: Anat Douglass WPtel: [phone] [facility] [place] (15 min) Moderate 05/19/2018 Patient Education: Patient Medication Summary Completed 05/19/2018 Care Plan: Referral Order SNOMED-CT : [id number] Pending 05/19/2018 Appointment: Anat Douglass WPtel: [phone] [facility] [place] (15 min) Moderate 05/14/2018 Appointment: Lab Draw 03/09/2018 Patient Education: Patient Medication Summary Completed 03/09/2018 Appointment: Lab Draw 07/31/2017 Patient Education: Patient Medication Summary Completed 07/31/2017 Visit Plan: Esophageal Reflux - the patient has been counseled against excessive intake of caffeine, spicy foods, peppermint, and cinnamon - all of which can exacerbate esophageal reflux. The patient is to take medications as prescribed and call the office if the symptoms are not improving. The cough may be due to the Reflux - pt to call if cough does not improve with the omeprazole RX. Cough - Tessalon Perles Anal Fissure - continue with procto- papa as directed - monitor GI symptoms - bring in stool samples. 07/30/2017 Appointment: Anat Douglass WPtel: [phone] [facility] [place] (15 min) Moderate 07/30/2017 Patient Education: Patient Medication Summary Completed 07/30/2017 Patient Education: Obesity Completed 07/30/2017 Appointment: Lab Draw 05/02/2017 Patient Education: Patient Medication Summary Completed 05/02/2017 Visit Plan: Well Adult - pt was cou nseled about diet, exercise, and encouraged to follow a heart healthy diet and increase activity level. The patient was instructed to RTC yearly for well adult exams and PRN for acute illnesses. The pt was also instructed to have yearly labs for check of cholesterol, thyroid, chem panel, CBC, and renal functioning. 07/02/2016 Patient Education: Patient Medication Summary Completed 07/02/2016 Patient Education: Obesity Completed 07/02/2016 Referral: [facility] Referral Appointment Requested Instructions Comment . Well Adult - pt wa s counseled about diet, exercise, and encouraged to follow a heart healthy diet and increase activity level. The patient was instructed to RTC yearly for well adult exams and PRN for acute illnesses. The pt was also instructed to have yearly labs for check of cholesterol, thyroid, chem panel, CBC, and renal functioning. . Esophageal Reflux - the patient has been counseled against excessive intake of caffeine, spicy foods, peppermint, and cinnamon - all of which can exacerbate esophageal reflux. The patient is to take medications as prescribed and call the office if the symptoms are not improving. The cough may be due to the Reflux - pt to call if cough does not improve with the omeprazole RX. Cough - Tessalon Perles Anal Fissure - continue with procto-papa as directed - monitor GI symptoms - bring in stool samples. . Pneumonia - Pt has been diagnosed with pneumonia by physical exam. A chest xray has been ordered as have antibiotics. The pt is aware of the diagnosis and the need for acute treatment of this illness. . Wound Instructions - Pt was instructed to keep the wound clean, wash with antibacterial soap, use triple antibiotic ointment, call if redness, pustular drainage, or any other acute concerns. . Well Adult - pt was counseled about diet, exercise, and encouraged to follow a heart healthy diet and increase activity level. The patient was instructed to RTC yearly for well adult exams and PRN for acute illnesses. The pt was also instructed to have yearly labs for check of cholesterol, thyroid, chem panel, CBC, and renal functioning. Painful Varicose veins right leg - referral to dr. rebolledo vascular surgeon for evaluation for possible treatment. Hx of DVT - continue with xarelto . UTI - pt with posi tive urinalysis - culture sent if appropriate. Antibiotic electronically prescribed to pt's pharmacy of choice. Pt to call if symptoms do not improve.
--- OUTSIDE RECORDS SUMMARY | 2020-05-11 07:46 | XMS REPORT | CCD ---
Author Author Cynthia Douglass Organization Anat Douglass MD, 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 Unknown Has never used illegal drugs 016 Allergies, Adverse Reactions, Alerts Substance Reaction Codes Entered Date Inactivated Date Status SULFA (SULFONAMIDE A NTIBIOTICS) hives Unknown 07/02/2016 No Inactive Date Active Past Medical History Illness Codes Condition Status Onset Date Resolved Date Dysuria ICD-9: 788.1 ICD-10: R30.0 Active 05/02/2017 Unknown Encounter for genera l adult medical examination without abnormal findings ICD-9: V70.0 ICD-10: Z00.00 Active 07/01/2016 Unknown Problems Condition Codes Effectiv e Dates Condition Status Dysuria ICD-9: 788.1 ICD-10: R30.0 05/02/2017 Active Encounter for genera l adult medical examination without abnormal findings ICD-9: V70.0 ICD-10: Z00.00 07/01/2016 Active Medications Medication Codes Instruc tions Start Date Stop Date Sta tus Fill Instructions Keflex 500 mg capsule RxNorm: 059296 1 Capsule(s) PO TID 05/02/2017 05/08/2017 Active Keflex 500 mg capsule RxNorm: 008847 1 Capsule(s) PO TID 05/02/2017 05/01/2017 Inactive Xarelto 20 mg tablet RxNorm: 9262753 1 Tablet(s) PO daily No Start Date Active Claritin 10 mg tablet RxNorm: 481343 1 Tablet(s) PO daily No Start Date Active Imodium oral RxNorm: 80652 oral No Start Date Active Medication Administered No Medication Administered data Immunizations No Immunization data Assessments Condition Codes Effectiv e Dates Dysuria ICD-10: R30.0 ICD-9: 788.1 05/02/2017 Encounter for general adult medical exam ination without abnormal findings ICD-10: Z00.00 ICD-9: V70.0 07/02/2016 Reason For Visit Reason For Visit Effective Dates Notes callus 07/02/2016 on her right shoulder Results Observation Observation Code Item Item Code Result Date Urine Culture Ucult Comp lete Growth of aerobe sent to ref lab 05/03/2017 Review of Systems System Result Effective Dates Constitutional No recent illness 07/02/2016 Constitutional No [...] Date URINALYSIS NONAUTO W /O SCOPE CPT-4: [id number] 05/02/2017 Vital Signs Date Vital 07/02/2016 Blood Pressure 1: 116/80 Code: 8480-6 BMI: 31.2 Code: 53575-4 Heart Rate 1: 80 bpm Height: 5'1" SpO2: 97% Weight: 165 lbs Functional Status No Functional Status data History of Present Illness Symptom Name Status Resu lt Effective Date Notes callus Onset and Resolution ongoing 07/02/2016 None cyst Quality dull pain 07/02/2016 None cyst Onset and Resolution ongoing 07/02/2016 None cyst Location on left up per back 07/02/2016 None cyst Quality intermittent 07/02/2016 None Advance Directives No Advance Directive data Encounters Encounter Performer Loca tion Codes Date (86821) PREV VISIT N EW AGE 40-64 Diagnosis: Encounter for general adult medical examination without abnormal findings[ICD10: Z00.00] [facility] CPT-4: 38169 07/02/2016 Plan of Care Planned Activity Notes C odes Status Date Appointment: Lab Draw 05/02/2017 Patient Education: Patient Medication Summary Completed 05/02/2017 Visit Plan: Well Adult - pt was counsele d about diet, exercise, and encouraged to follow [...] Completed 07/02/2016 Patient Education: Obesity Completed 07/02/2016 Instructions Comment . Well Adult - pt [...]
--- OUTSIDE RECORDS SUMMARY | 2020-05-11 07:46 | XMS REPORT | CCD ---
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 smoker 07/02/[address]: 561695927 Never drinks alcohol 07/02/2016 Has the patient [...] Fill Instructions Keflex 500 mg capsule RxNorm: 647890 1 Capsule(s) PO TID 05/02/2017 05/08/2017 Active Keflex 500 mg capsule RxNorm: 682083 1 Capsule(s) PO TID 05/02/2017 05/01/2017 Inactive Xarelto 20 mg tablet RxNorm: 4709301 1 Tablet(s) PO daily No Start Date Active Claritin 10 mg tablet RxNorm: 499964 1 Tablet(s) PO daily No Start Date Active Imodium oral RxNorm: 84196 oral No Start Date Active Medication Administered No Medication Administered data Immunizations No Immunization data Assessments Condition Codes Effectiv e Dates Dysuria ICD-10: R30.0 ICD-9: 788.1 05/02/2017 Encounter for general adult medical exam ination without abnormal findings ICD-10: Z00.00 ICD-9: V70.0 07/02/2016 Reason For Visit Reason For Visit Effective Dates Notes callus 07/02/2016 on her right shoulder Results No Results data Review of Systems System Result Effective Dates [...] normal mood and affect 07/02/2016 None Procedures No Procedures data Vital Signs Date Vital 07/02/2016 Blood Pressure 1: 116/80 Code: 8480-6 BMI: 31.2 Code: 15567-2 Heart Rate 1: 80 bpm Height: 5'1" [...] Encounters Encounter Performer Loca tion Codes Date (25453) PREV VISIT N EW AGE 40-64 Diagnosis: Encounter for general adult medical examination without abnormal findings[ICD10: Z00.00] [facility] CPT-4: 56828 07/02/2016 Plan of Care Planned Activity Notes C odes Status Date Patient Education: Patient Medication Summary Completed 05/02/2017 Care Plan: Urine Culture Pending 05/02/2017 Visit Plan: Well Adult - pt [...]
--- OUTSIDE RECORDS SUMMARY | 2020-05-11 07:47 | XMS REPORT | CCD ---
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 07/02/[address]: 585810089 Never drinks alcohol 07/02/2016 Has the patient [...] Fill Instructions Xarelto 20 mg tablet RxNorm: 2786728 1 Tablet(s) PO daily No Start Date Active Claritin 10 mg tablet RxNorm: 996357 1 Tablet(s) PO daily No Start Date Active Imodium oral RxNorm: 12273 oral No Start Date Active Medication Administered [...] 1: 116/80 Code: 8480-6 BMI: 31.2 Code: 24549-9 Heart Rate 1: 80 bpm Height: 5'1" [...] Encounters Encounter Performer Loca tion Codes Date (05290) PREV VISIT N EW AGE 40-64 Diagnosis: Encounter for general adult medical examination without abnormal findings[ICD10: Z00.00] [facility] CPT-4: 98967 07/02/2016 Plan of Care Planned Activity Notes [...]
--- OUTSIDE RECORDS SUMMARY | 2020-05-11 07:47 | XMS REPORT | CCD ---
Author Author Cynthia Douglass Organization Anat Douglass MD, 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 07/02/[address]: 532300922 Never drinks alcohol 07/02/2016 Has the patient [...] Date Stop Date Sta tus Fill Instructions Macrobid 100 mg capsule RxNorm: 877908 1 Capsule(s) PO BID 03/24/2019 03/30/2019 Active dc augmentin Macrobid 100 mg capsule RxNorm: 519159 1 Capsule(s) PO BID 03/24/2019 03/23/2019 Inactive Augmentin 500 mg-125 mg tablet RxNorm: 432857 1 Tablet(s) PO TID 03/19/2019 03/23/2019 Inactive cefdinir 300 mg capsule RxNorm: 362399 1 Capsule(s) PO BID 01/29/2019 02/04/2019 Inactive Zithromax Z-Papa 250 mg tablet RxNorm: 647148 1 Tablet(s) PO UD 01/29/2019 02/02/2019 Inactive Keflex 500 mg capsule RxNorm: 129319 1 Capsule(s) PO QID 01/15/2019 01/28/2019 Inactive Keflex 500 mg capsule RxNorm: 040291 1 Capsule(s) PO QID 11/04/2018 11/10/2018 Inactive Pyridium 100 mg tablet RxNorm: 4113800 1 Tablet(s) PO TID 11/04/2018 11/10/2018 Inactive Pyridium 100 mg tablet RxNorm: 4828010 1 Tablet(s) PO TID 11/04/2018 11/03/2018 Inactive Xarelto 20 mg tablet RxNorm: 7219625 1 Tablet(s) PO daily 05/19/2018 05/13/2019 Active Tessalon Perles 100 mg capsule RxNorm: 870935 1 Capsule(s) PO TID a s needed 07/30/2017 08/28/2017 In active Procto-Papa 1 % topic al cream perineal applicator RxNorm: 617592 1 Application RTL mumtaz ly 07/30/2017 08/05/2017 Inactive omeprazole 20 mg cap denise,delayed release RxNorm: 855928 1 Capsule(s) PO daily 07/30/2017 08/28/2017 In active Keflex 500 mg capsule RxNorm: 702269 1 Capsule(s) PO TID 05/02/2017 05/01/2017 Inactive Keflex 500 mg capsule RxNorm: 196703 1 Capsule(s) PO TID 05/02/2017 08/03/2018 Inactive Claritin 10 mg tablet RxNorm: 048650 1 Tablet(s) PO daily No Start Date Active Imodium oral RxNorm: 49339 oral No Start Date Active Xarelto 20 mg tablet RxNorm: 9074638 1 Tablet(s) PO daily No Start Date [...] Item Item Code Result Date Culture Urine 295490 URI NE CULTURE SEE NOTES 03/12/2018 Urine [...] normal 03/19/2019 None Full Exam - General 1994 Ears/Nose/Throat lips/teeth/gingiva Overall: benign lips 03/19/2019 None [...] Date URINALYSIS NONAUTO W /O SCOPE CPT-4: 86450 03/19/2019 URINALYSIS NONAUTO W /O SCOPE CPT-4: 13684 11/03/2018 REMOVAL OF SKIN TAGS <W/15 CPT-4: 00876 08/04/2018 URINALYSIS NONAUTO W /O SCOPE CPT-4: 56536 03/09/2018 OCCULT BLOOD FECES CPT- 4: 38329 07/31/2017 URINALYSIS NONAUTO W /O SCOPE CPT-4: 54975 05/02/2017 Vital Signs Date Vital 03/19/2019 Blood Pressure 1: 130/76 Code: 8480-6 BMI: 30.2 Code: 37233-0 Heart Rate 1: 80 bpm Height: 5'1" SpO2: 98% Weight: 160 lbs 01/29/2019 Blood Pressure 1: 124/78 Code: 8480-6 BMI: 30.2 Code: 75311-3 Heart Rate 1: 88 bpm Height: 5'1" SpO2: 98% Temperature: 36.7 (C ) / 98.1 (F) Weight: 160 lbs 11/03/2018 Heigh t: 5'1" 08/04/2018 Blood Pressure 1: 122/76 Code: 8480-6 BMI: 29.9 Code: 49743-8 Heart Rate 1: 70 bpm Height: 5'1" SpO2: 98% Weight: 158 lbs 05/19/2018 Blood Pressure 1: 118/76 Code: 8480-6 BMI: 30.2 Code: 65254-9 Heart Rate 1: 72 bpm Height: 5'1" SpO2: 98% Weight: 160 lbs 07/30/2017 Blood Pressure 1: 130/62 Code: 8480-6 BMI: 31.2 Code: 72738-7 Heart Rate 1: 102 bpm Height: 5'1" SpO2: 97% Weight: 165 lbs 07/02/2016 Blood Pressure 1: 116/80 Code: 8480-6 BMI: 31.2 Code: 55468-7 Heart Rate 1: 80 bpm Height: 5'1" [...] Encounters Encounter Performer Loca tion Codes Date 73102 EST. PATIENT, LEVEL III Diagnosis: Dysuria[ICD10: R30.0] [facility] CPT-4: 98396 03/19/2019 ([id number]) 04460 EST. P ATIENT, LEVEL III Diagnosis: Cough[ICD10: R05] Diagnosis: Pneumonia, unspecified organism[ICD10: J18.9] [facility] CPT-4: 15295 01/29/2019 ([id number]) PREV VISIT E ST AGE 40-64 Diagnosis: Encounter for general adult medical examination without abnormal findings[ICD10: Z00.00] [facility] CPT-4: 91487 05/19/2018 ([id number]) 09891 EST. 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 Antibiotic electronically prescribed to pt's pharmacy of choice. Pt to call if symptoms do not improve. 03/19/2019 Appointment: Aidee Davis WPtel: [phone] [phone] (30 min) Complex 03/19/2019 Patient Education: Patient Medication Summary Completed 03/19/2019 Care Plan: Urine Culture Pending 03/19/2019 Visit Plan: Pneumonia - Pt has been diagnosed with pneumonia by physical exam. A chest xray has been ordered as have antibiotics. The pt is aware of the diagnosis and the need for acute treatment of this illness. 01/29/2019 Appointment: Caty Jordan WPtel: [phone] [phone] (30 min) Complex 01/29/2019 Patient Education: Patient [...] acute concerns. 08/04/2018 Appointment: Caty Jordan WPtel: [phone] [phone] (30 min) Complex 08/04/2018 Patient Education: Patient Medication Summary Completed 08/04/2018 Referral: [facility] Referral Completed 06/16/2018 Visit Plan: Well Adult [...] with xarelto 05/19/2018 Appointment: Anat Douglass WPtel: [phone] [facility] (15 min) Moderate 05/19/2018 Patient Education: Patient Medication Summary Completed 05/19/2018 Care Plan: Referral Order SNOMED-CT : 862329470 Pending 05/19/2018 Appointment: Anat Douglass WPtel: [phone] [facility] [place] (15 min) Moderate 05/14/2018 Appointment: Lab [...] samples. 07/30/2017 Appointment: Anat Douglass WPtel: [phone] [facility] [place] (15 min) Moderate 07/30/2017 Patient Education: [...] 07/02/2016 Patient Education: Obesity Completed 07/02/2016 Referral: [facility] Referral Appointment Requested Instructions Comment . Well [...]
--- OUTSIDE RECORDS SUMMARY | 2020-05-11 07:47 | XMS REPORT | CCD ---
Author Author Cynthia Douglass Organization Anat Douglass MD, [facility] Address [address] [place] [address] Phone Care Team Providers Care House Designer Name Role Phone PP Unavailable CCM Unavailable Summary Purpose Interface Exchange Insurance Providers Payer name Policy type / Coverage type Covered alliance party ID Effective Begin Date Effective End Date Blue Cross Blue 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 07/02/[address]: 038785724 Never drinks alcohol 07/02/2016 Has the patient [...] Date Stop Date Sta tus Fill Instructions Augmentin 500 mg-125 mg tablet RxNorm: 127736 1 Tablet(s) PO TID 03/19/2019 03/28/2019 Active cefdinir 300 mg capsule RxNorm: 585475 1 Capsule(s) PO BID 01/29/2019 02/04/2019 Inactive Zithromax Z-Papa 250 mg tablet RxNorm: 718979 1 Tablet(s) PO UD 01/29/2019 02/02/2019 Inactive Keflex 500 mg capsule RxNorm: 374774 1 Capsule(s) PO QID 01/15/2019 01/28/2019 Inactive Keflex 500 mg capsule RxNorm: 526608 1 Capsule(s) PO QID 11/04/2018 11/10/2018 Inactive Pyridium 100 mg tablet RxNorm: 9985917 1 Tablet(s) PO TID 11/04/2018 11/10/2018 Inactive Pyridium 100 mg tablet RxNorm: 6147356 1 Tablet(s) PO TID 11/04/2018 11/03/2018 Inactive Xarelto 20 mg tablet RxNorm: 7126105 1 Tablet(s) PO daily 05/19/2018 05/13/2019 Active Tessalon Perles 100 mg capsule RxNorm: 806014 1 Capsule(s) PO TID a s needed 07/30/2017 08/28/2017 In active Procto-Papa 1 % topic al cream perineal applicator RxNorm: 022033 1 Application RTL mumtaz ly 07/30/2017 08/05/2017 Inactive omeprazole 20 mg cap denise,delayed release RxNorm: 085459 1 Capsule(s) PO daily 07/30/2017 08/28/2017 In active Keflex 500 mg capsule RxNorm: 601519 1 Capsule(s) PO TID 05/02/2017 05/01/2017 Inactive Keflex 500 mg capsule RxNorm: 547218 1 Capsule(s) PO TID 05/02/2017 08/03/2018 Inactive Claritin 10 mg tablet RxNorm: 609970 1 Tablet(s) PO daily No Start Date Active Imodium oral RxNorm: 53477 oral No Start Date Active Xarelto 20 mg tablet RxNorm: 0010511 1 Tablet(s) PO daily No Start Date [...] Item Item Code Result Date Culture Urine 953304 URI NE CULTURE SEE NOTES 03/12/2018 Urine [...] Date URINALYSIS NONAUTO W /O SCOPE CPT-4: 96980 03/19/2019 URINALYSIS NONAUTO W /O SCOPE CPT-4: 80126 11/03/2018 REMOVAL OF SKIN TAGS <W/15 CPT-4: 24307 08/04/2018 URINALYSIS NONAUTO W /O SCOPE CPT-4: 96863 03/09/2018 OCCULT BLOOD FECES CPT- 4: 72274 07/31/2017 URINALYSIS NONAUTO W /O SCOPE CPT-4: 50853 05/02/2017 Vital Signs Date Vital 03/19/2019 Blood Pressure 1: 130/76 Code: 8480-6 BMI: 30.2 Code: 43185-7 Heart Rate 1: 80 bpm Height: 5'1" SpO2: 98% Weight: 160 lbs 01/29/2019 Blood Pressure 1: 124/78 Code: 8480-6 BMI: 30.2 Code: 40664-3 Heart Rate 1: 88 bpm Height: 5'1" SpO2: 98% Temperature: 36.7 (C ) / 98.1 (F) Weight: 160 lbs 11/03/2018 Heigh t: 5'1" 08/04/2018 Blood Pressure 1: 122/76 Code: 8480-6 BMI: 29.9 Code: 44732-7 Heart Rate 1: 70 bpm Height: 5'1" SpO2: 98% Weight: 158 lbs 05/19/2018 Blood Pressure 1: 118/76 Code: 8480-6 BMI: 30.2 Code: 21698-3 Heart Rate 1: 72 bpm Height: 5'1" SpO2: 98% Weight: 160 lbs 07/30/2017 Blood Pressure 1: 130/62 Code: 8480-6 BMI: 31.2 Code: 11289-3 Heart Rate 1: 102 bpm Height: 5'1" SpO2: 97% Weight: 165 lbs 07/02/2016 Blood Pressure 1: 116/80 Code: 8480-6 BMI: 31.2 Code: 25389-2 Heart Rate 1: 80 bpm Height: 5'1" [...] Encounters Encounter Performer Loca tion Codes Date 56017 EST. PATIENT, LEVEL III Diagnosis: Dysuria[ICD10: R30.0] [facility] CPT-4: 50412 03/19/2019 ([id number] 55702 EST. P ATIENT, LEVEL III Diagnosis: Cough[ICD10: R05] Diagnosis: Pneumonia, unspecified organism[ICD10: J18.9] [facility]y [facility] CPT-4: 41580 01/29/2019 ([id number]) PREV VISIT E ST AGE 40-64 Diagnosis: Encounter for general adult medical examination without abnormal findings[ICD10: Z00.00] [facility] CPT-4: 74936 05/19/2018 ([id number] 05272 EST. 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 Antibiotic electronically prescribed to pt's pharmacy of choice. Pt to call if symptoms do not improve. 03/19/2019 Appointment: Aidee Davis WPtel: [phone] [phone] (30 min) Complex 03/19/2019 Patient Education: Patient Medication Summary Completed 03/19/2019 Care Plan: Urine Culture Pending 03/19/2019 Visit Plan: Pneumonia - Pt has been diagnosed with pneumonia by physical exam. A chest xray has been ordered as have antibiotics. The pt is aware of the diagnosis and the need for acute treatment of this illness. 01/29/2019 Appointment: Caty Jordan WPtel: [phone] [phone] (30 min) Complex 01/29/2019 Patient Education: [...] acute concerns. 08/04/2018 Appointment: Caty Jordan WPtel: [phone] [phone] (30 min) Complex 08/04/2018 Patient Education: Patient Medication Summary Completed 08/04/2018 Referral: [facility] Referral Completed 06/16/2018 Visit Plan: Well Adult [...] xarelto 05/19/2018 Appointment: Anat Douglass WPtel: [phone] [facility] [place] (15 min) Moderate 05/19/2018 Patient Education: Patient Medication Summary Completed 05/19/2018 Care Plan: Referral Order SNOMED-CT : [id number] Pending 05/19/2018 Appointment: Anat Douglass WPtel: [phone] [facility] [place] (15 min) Moderate 05/14/2018 [...] samples. 07/30/2017 Appointment: Anat Douglass WPtel: [phone] [facility] [place] (15 min) Moderate 07/30/2017 [...] 07/02/2016 Patient Education: Obesity Completed 07/02/2016 Referral: [facility] Referral Appointment Requested Instructions Comment . Well [...]
--- OUTSIDE RECORDS SUMMARY | 2020-05-11 07:48 | XMS REPORT | CCD ---
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 07/02/[address]: 534850644 Never drinks alcohol 07/02/2016 Has the patient [...] Instructions Augmentin 500 mg-125 mg tablet RxNorm: 972633 1 Tablet(s) PO TID 03/19/2019 03/28/2019 Active cefdinir 300 mg capsule RxNorm: 610478 1 Capsule(s) PO BID 01/29/2019 02/04/2019 Inactive Zithromax Z-Papa 250 mg tablet RxNorm: 280352 1 Tablet(s) PO UD 01/29/2019 02/02/2019 Inactive Keflex 500 mg capsule RxNorm: 698867 1 Capsule(s) PO QID 01/15/2019 01/28/2019 Inactive Keflex 500 mg capsule RxNorm: 406350 1 Capsule(s) PO QID 11/04/2018 11/10/2018 Inactive Pyridium 100 mg tablet RxNorm: 1993768 1 Tablet(s) PO TID 11/04/2018 11/10/2018 Inactive Pyridium 100 mg tablet RxNorm: 5940736 1 Tablet(s) PO TID 11/04/2018 11/03/2018 Inactive Xarelto 20 mg tablet RxNorm: 2259594 1 Tablet(s) PO daily 05/19/2018 05/13/2019 Active Tessalon Perles 100 mg capsule RxNorm: 005369 1 Capsule(s) PO TID a s needed 07/30/2017 08/28/2017 In active Procto-Papa 1 % topic al cream perineal applicator RxNorm: 980724 1 Application RTL mumtaz ly 07/30/2017 08/05/2017 Inactive omeprazole 20 mg cap denise,delayed release RxNorm: 018559 1 Capsule(s) PO daily 07/30/2017 08/28/2017 In active Keflex 500 mg capsule RxNorm: 941033 1 Capsule(s) PO TID 05/02/2017 05/01/2017 Inactive Keflex 500 mg capsule RxNorm: 604274 1 Capsule(s) PO TID 05/02/2017 08/03/2018 Inactive Claritin 10 mg tablet RxNorm: 323005 1 Tablet(s) PO daily No Start Date Active Imodium oral RxNorm: 28817 oral No Start Date Active Xarelto 20 mg tablet RxNorm: 4065864 1 Tablet(s) PO daily No Start Date [...] Item Item Code Result Date Culture Urine 299597 URI NE CULTURE SEE NOTES 03/12/2018 Urine [...] Date URINALYSIS NONAUTO W /O SCOPE CPT-4: 00476 11/03/2018 REMOVAL OF SKIN TAGS <W/15 CPT-4: 64299 08/04/2018 URINALYSIS NONAUTO W /O SCOPE CPT-4: 09948 03/09/2018 OCCULT BLOOD FECES CPT- 4: 90712 07/31/2017 URINALYSIS NONAUTO W /O SCOPE CPT-4: 50851 05/02/2017 Vital Signs Date Vital 03/19/2019 Blood Pressure 1: 130/76 Code: 8480-6 BMI: 30.2 Code: 94298-7 Heart Rate 1: 80 bpm Height: 5'1" SpO2: 98% Weight: 160 lbs 01/29/2019 Blood Pressure 1: 124/78 Code: 8480-6 BMI: 30.2 Code: 88651-3 Heart Rate 1: 88 bpm Height: 5'1" SpO2: 98% Temperature: 36.7 (C ) / 98.1 (F) Weight: 160 lbs 11/03/2018 Heigh t: 5'1" 08/04/2018 Blood Pressure 1: 122/76 Code: 8480-6 BMI: 29.9 Code: 50851-6 Heart Rate 1: 70 bpm Height: 5'1" SpO2: 98% Weight: 158 lbs 05/19/2018 Blood Pressure 1: 118/76 Code: 8480-6 BMI: 30.2 Code: 82161-4 Heart Rate 1: 72 bpm Height: 5'1" SpO2: 98% Weight: 160 lbs 07/30/2017 Blood Pressure 1: 130/62 Code: 8480-6 BMI: 31.2 Code: 27830-2 Heart Rate 1: 102 bpm Height: 5'1" SpO2: 97% Weight: 165 lbs 07/02/2016 Blood Pressure 1: 116/80 Code: 8480-6 BMI: 31.2 Code: 68278-9 Heart Rate 1: 80 bpm Height: 5'1" [...] Encounters Encounter Performer Loca tion Codes Date 19064 EST. PATIENT, LEVEL III Diagnosis: Dysuria[ICD10: R30.0] [facility] CPT-4: 86137 03/19/2019 ([id number]) 91266 EST. P ATIENT, LEVEL III Diagnosis: Cough[ICD10: R05] Diagnosis: Pneumonia, unspecified organism[ICD10: J18.9] [facility]y [facility] CPT-4: 11719 01/29/2019 ([id number]) PREV VISIT E ST AGE 40-64 Diagnosis: Encounter for general adult medical examination without abnormal findings[ICD10: Z00.00] [facility] CPT-4: 82865 05/19/2018 ([id number]) 92931 EST. 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 Antibiotic electronically prescribed to pt's pharmacy of choice. Pt to call if symptoms do not improve. 03/19/2019 Appointment: Aidee Davis WPtel: [phone] [facility] (30 min) Complex 03/19/2019 Patient Education: Patient Medication Summary Completed 03/19/2019 Care Plan: Urine Culture Pending 03/19/2019 Visit Plan: Pneumonia - Pt has been diagnosed with pneumonia by physical exam. A chest xray has been ordered as have antibiotics. The pt is aware of the diagnosis and the need for acute treatment of this illness. 01/29/2019 Appointment: Caty Jordan WPtel: [phone] [phone] (30 min) Complex 01/29/2019 Patient Education: Patient [...] concerns. 08/04/2018 [facility]ment[phone] (30 min) Complex 08/04/2018 Patient Education: Patient Medication Summary Completed 08/04/2018 Referral: [facility] Referral Completed 06/16/2018 Visit Plan: [...] xarelto 05/19/2018 [phone] [place] (15 min) Moderate 05/19/2018 Patient Education: Patient Medication Summary Completed 05/19/2018 Care Plan: Referral Order SNOMED-CT : [id number] Pending 05/19/2018 App[facility]ment[phone] [place] (15 min) Moderate 05/14/2018 Appointment: Lab [...] stool samples. 07/30/2017 App[facility]ment[phone] [place] (15 min) Moderate 07/30/2017 Patient Education: [...] 07/02/2016 Patient Education: Obesity Completed 07/02/2016 Referral: [facility] Referral Appointment Requested Instructions Comment [...]
--- OUTSIDE RECORDS SUMMARY | 2020-05-11 07:48 | XMS REPORT | CCD ---
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 Unknown Has never used illegal drugs 016 Allergies, Adverse Reactions, Alerts Substance Reaction Codes Entered Date Inactivated Date Status SULFA (SULFONAMIDE A NTIBIOTICS) hives, Unknown 07/02/20 16 No Inactive Date Active Past Medical History Illness Codes Condition Status Onset Date Resolved Date Cough ICD-9: 786.2 ICD-10: R05 Active 07/30/2017 Unknown Pneumonia, unspecifi ed organism ICD-9: 486 ICD-10: J18.9 Active 01/29/2019 Unknown Dysuria ICD-9: 788.1 ICD-10: R30.0 Active 05/02/2017 Unknown Other hypertrophic d isorders of the [...] Condition Codes Effectiv e Dates Condition Status Cough ICD-9: 786.2 ICD-10: R05 07/30/2017 Active Pneumonia, unspecifi ed organism ICD-9: 486 ICD-10: J18.9 01/29/2019 Active Dysuria ICD-9: 788.1 ICD-10: R30.0 05/02/2017 Active Other hypertrophic d isorders of the [...] Date Stop Date Sta tus Fill Instructions cefdinir 300 mg capsule RxNorm: 836381 1 Capsule(s) PO BID 01/29/2019 02/04/2019 Active Zithromax Z-Papa 250 mg tablet RxNorm: 470796 1 Tablet(s) PO UD 01/29/2019 02/02/2019 Active Keflex 500 mg capsule RxNorm: 202934 1 Capsule(s) PO QID 01/15/2019 01/28/2019 Inactive Keflex 500 mg capsule RxNorm: 134216 1 Capsule(s) PO QID 11/04/2018 11/10/2018 Inactive Pyridium 100 mg tablet RxNorm: 9930467 1 Tablet(s) PO TID 11/04/2018 11/10/2018 Inactive Pyridium 100 mg tablet RxNorm: 9914688 1 Tablet(s) PO TID 11/04/2018 11/03/2018 Inactive Xarelto 20 mg tablet RxNorm: 7046366 1 Tablet(s) PO daily 05/19/2018 05/13/2019 Active Tessalon Perles 100 mg capsule RxNorm: 980030 1 Capsule(s) PO TID a s needed 07/30/2017 08/28/2017 In active Procto-Papa 1 % topic al cream perineal applicator RxNorm: 858197 1 Application RTL mumtaz ly 07/30/2017 08/05/2017 Inactive omeprazole 20 mg cap denise,delayed release RxNorm: 922332 1 Capsule(s) PO daily 07/30/2017 08/28/2017 In active Keflex 500 mg capsule RxNorm: 239573 1 Capsule(s) PO TID 05/02/2017 05/01/2017 Inactive Keflex 500 mg capsule RxNorm: 412685 1 Capsule(s) PO TID 05/02/2017 08/03/2018 Inactive Claritin 10 mg tablet RxNorm: 715381 1 Tablet(s) PO daily No Start Date Active Imodium oral RxNorm: 90224 oral No Start Date Active Xarelto 20 mg tablet RxNorm: 4252166 1 Tablet(s) PO daily No Start Date 05/18/2018 Inactive Medication Administered No Medication Administered data Immunizations No Immunization data Assessments Condition Codes Effectiv e Dates Cough ICD-10: R05 ICD-9: 786.2 01/29/2019 Pneumonia, unspecified organism ICD- 10: J18.9 ICD-9: 486 01/29/2019 Dysuria ICD-10: R30.0 ICD-9: 788.1 11/03/2018 Other hypertrophic disorders of the skin ICD-10: [...] Visit Reason For Visit Effective Dates Notes sinus congestion 01/29/2019 acrochordon (skin tags) 08/04/2018 well woman exam (40-65 years) 05/19/2018 cough 07/30/2017 blood i n stool callus 07/02/2016 on her right shoulder Results Observation Observation Code Item Item Code Result Date Culture Urine [id number] URI NE CULTURE SEE NOTES 03/12/2018 Urine Culture Ucult Comp lete Growth of aerobe sent to ref lab 03/11/2018 Urine Culture Ucult Comp lete Growth of aerobe sent to ref lab 05/03/2017 Review of Systems System Result Effective Dates Constitutional recent illness 01/29/2019 Constitutional No anorexia [...] Result Effective Dates Notes Full Exam - ENT Constitutional general appearance [...] Date URINALYSIS NONAUTO W /O SCOPE CPT-4: 51616 11/03/2018 REMOVAL OF SKIN TAGS <W/15 CPT-4: 38417 08/04/2018 URINALYSIS NONAUTO W /O SCOPE CPT-4: 15781 03/09/2018 OCCULT BLOOD FECES CPT- 4: 00376 07/31/2017 URINALYSIS NONAUTO W /O SCOPE CPT-4: 56563 05/02/2017 Vital Signs Date Vital 01/29/2019 Blood Pressure 1: 124/78 Code: 8480-6 BMI: 30.2 Code: 43255-4 Heart Rate 1: 88 bpm Height: 5'1" SpO2: 98% Temperature: 36.7 (C ) / 98.1 (F) Weight: 160 lbs 11/03/2018 Heigh t: 5'1" 08/04/2018 Blood Pressure 1: 122/76 Code: 8480-6 BMI: 29.9 Code: 81615-0 Heart Rate 1: 70 bpm Height: 5'1" SpO2: 98% Weight: 158 lbs 05/19/2018 Blood Pressure 1: 118/76 Code: 8480-6 BMI: 30.2 Code: 35394-7 Heart Rate 1: 72 bpm Height: 5'1" SpO2: 98% Weight: 160 lbs 07/30/2017 Blood Pressure 1: 130/62 Code: 8480-6 BMI: 31.2 Code: 03433-5 Heart Rate 1: 102 bpm Height: 5'1" SpO2: 97% Weight: 165 lbs 07/02/2016 Blood Pressure 1: 116/80 Code: 8480-6 BMI: 31.2 Code: 27006-7 Heart Rate 1: 80 bpm Height: 5'1" SpO2: 97% Weight: 165 lbs Functional Status No Functional Status data History of Present Illness Symptom Name Status Resu lt Effective Date Notes Onset and Resolution s udden in onset [...] Encounters Encounter Performer Loca tion Codes Date ([id number]) 04045 EST. P ATIENT, LEVEL III Diagnosis: Cough[ICD10: R05] Diagnosis: Pneumonia, unspecified organism[ICD10: J18.9] Caty Douglass MD, [facility] CPT-4: 36745 01/29/2019 ([id number]) PREV VISIT E ST AGE 40-64 Diagnosis: Encounter for general adult medical examination without abnormal findings[ICD10: Z00.00] Anat Douglass MD, [facility] CPT-4: 34536 05/19/2018 ([id number]) 57163 EST. 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 A chest xray has been ordered as have antibiotics. The pt is aware of the diagnosis and the need for acute treatment of this illness. 01/29/2019 Patient Education: Patient Medication Summary Completed [...] concerns. 08/04/2018 Appointment: Caty Jordan WPtel: [phone] [phone] (30 min) Complex 08/04/2018 Patient Education: Patient Medication Summary Completed 08/04/2018 Referral: [facility] Referral Completed 06/16/2018 Visit Plan: Well [...] with xarelto 05/19/2018 Appointment: Anat Douglass WPtel: [facility] [place] (15 min) Moderate 05/19/2018 Patient Education: Patient Medication Summary Completed 05/19/2018 Care Plan: Referral Order SNOMED-CT : 566966091 Pending 05/19/2018 Appointment: Anat Douglass WPtel: [facility] (15 min) Moderate 05/14/2018 Appointment: Lab Draw [...] samples. 07/30/2017 [phone] [facility] ([facility] Moderate 07/30/2017 Patient Education: Patient [...] 07/02/2016 Patient Education: Obesity Completed 07/02/2016 Referral: [facility] Referral Appointment Requested Instructions Comment . [...]
--- OUTSIDE RECORDS SUMMARY | 2020-05-11 07:48 | XMS REPORT | CCD ---
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 07/02/[address]: 784793776 Never drinks alcohol 07/02/2016 Has the patient [...] Instructions Augmentin 500 mg-125 mg tablet RxNorm: 971566 1 Tablet(s) PO TID 03/19/2019 03/28/2019 Active cefdinir 300 mg capsule RxNorm: 232766 1 Capsule(s) PO BID 01/29/2019 02/04/2019 Inactive Zithromax Z-Papa 250 mg tablet RxNorm: 944363 1 Tablet(s) PO UD 01/29/2019 02/02/2019 Inactive Keflex 500 mg capsule RxNorm: 566810 1 Capsule(s) PO QID 01/15/2019 01/28/2019 Inactive Keflex 500 mg capsule RxNorm: 343589 1 Capsule(s) PO QID 11/04/2018 11/10/2018 Inactive Pyridium 100 mg tablet RxNorm: 1982571 1 Tablet(s) PO TID 11/04/2018 11/10/2018 Inactive Pyridium 100 mg tablet RxNorm: 4932654 1 Tablet(s) PO TID 11/04/2018 11/03/2018 Inactive Xarelto 20 mg tablet RxNorm: 8573605 1 Tablet(s) PO daily 05/19/2018 05/13/2019 Active Tessalon Perles 100 mg capsule RxNorm: 847644 1 Capsule(s) PO TID a s needed 07/30/2017 08/28/2017 In active Procto-Papa 1 % topic al cream perineal applicator RxNorm: 769835 1 Application RTL mumtaz ly 07/30/2017 08/05/2017 Inactive omeprazole 20 mg cap denise,delayed release RxNorm: 831203 1 Capsule(s) PO daily 07/30/2017 08/28/2017 In active Keflex 500 mg capsule RxNorm: 156115 1 Capsule(s) PO TID 05/02/2017 05/01/2017 Inactive Keflex 500 mg capsule RxNorm: 225705 1 Capsule(s) PO TID 05/02/2017 08/03/2018 Inactive Claritin 10 mg tablet RxNorm: 194285 1 Tablet(s) PO daily No Start Date Active Imodium oral RxNorm: 69039 oral No Start Date Active Xarelto 20 mg tablet RxNorm: 7355870 1 Tablet(s) PO daily No Start Date [...] Item Item Code Result Date Culture Urine [id number] URI NE CULTURE SEE NOTES 03/12/2018 Urine [...] Date URINALYSIS NONAUTO W /O SCOPE CPT-4: 82418 11/03/2018 REMOVAL OF SKIN TAGS <W/15 CPT-4: 27156 08/04/2018 URINALYSIS NONAUTO W /O SCOPE CPT-4: 94213 03/09/2018 OCCULT BLOOD FECES CPT- 4: 21336 07/31/2017 URINALYSIS NONAUTO W /O SCOPE CPT-4: 60379 05/02/2017 Vital Signs Date Vital 03/19/2019 Blood Pressure 1: 130/76 Code: 8480-6 BMI: 30.2 Code: 67286-3 Heart Rate 1: 80 bpm Height: 5'1" SpO2: 98% Weight: 160 lbs 01/29/2019 Blood Pressure 1: 124/78 Code: 8480-6 BMI: 30.2 Code: 57092-9 Heart Rate 1: 88 bpm Height: 5'1" SpO2: 98% Temperature: 36.7 (C ) / 98.1 (F) Weight: 160 lbs 11/03/2018 Heigh t: 5'1" 08/04/2018 Blood Pressure 1: 122/76 Code: 8480-6 BMI: 29.9 Code: 35682-5 Heart Rate 1: 70 bpm Height: 5'1" SpO2: 98% Weight: 158 lbs 05/19/2018 Blood Pressure 1: 118/76 Code: 8480-6 BMI: 30.2 Code: 74162-4 Heart Rate 1: 72 bpm Height: 5'1" SpO2: 98% Weight: 160 lbs 07/30/2017 Blood Pressure 1: 130/62 Code: 8480-6 BMI: 31.2 Code: 48974-3 Heart Rate 1: 102 bpm Height: 5'1" SpO2: 97% Weight: 165 lbs 07/02/2016 Blood Pressure 1: 116/80 Code: 8480-6 BMI: 31.2 Code: 90565-0 Heart Rate 1: 80 bpm Height: 5'1" [...] Encounters Encounter Performer Loca tion Codes Date 37216 EST. PATIENT, LEVEL III Diagnosis: Dysuria[ICD10: R30.0] [facility] CPT-4: 26477 03/19/2019 ([id number]) 13311 EST. P ATIENT, LEVEL III Diagnosis: Cough[ICD10: R05] Diagnosis: Pneumonia, unspecified organism[ICD10: J18.9] [facility] CPT-4: 17889 01/29/2019 ([id number]) PREV VISIT E ST AGE 40-64 Diagnosis: Encounter for general adult medical examination without abnormal findings[ICD10: Z00.00] [facility] CPT-4: 93881 05/19/2018 ([id number]) 78744 EST. 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 Antibiotic electronically prescribed to pt's pharmacy of choice. Pt to call if symptoms do not improve. 03/19/2019 Appointment: Aidee Davis WPtel: [phone] [facility] [address] (30 min) Complex 03/19/2019 Patient Education: Patient Medication Summary Completed 03/19/2019 Care Plan: Urine Culture Pending 03/19/2019 Visit Plan: Pneumonia - Pt has been diagnosed with pneumonia by physical exam. A chest xray has been ordered as have antibiotics. The pt is aware of the diagnosis and the need for acute treatment of this illness. 01/29/2019 Appointment: Caty Jordan WPtel: [phone] [facility] [phone] (30 min) Complex 01/29/2019 Patient Education: Patient [...] concerns. 08/04/2018 Appointment: [phone] [phone] (30 min) Complex 08/04/2018 Patient Education: Patient Medication Summary Completed 08/04/2018 Referral: [facility] Referral Completed 06/16/2018 Visit Plan: Well Adult [...] xarelto 05/19/2018 [facility]ment[facility] [phone] [facility] [place] (15 min) Moderate 05/19/2018 Patient Education: Patient Medication Summary Completed 05/19/2018 Care Plan: Referral Order SNOMED-CT : 865658039 Pending 05/19/2018 Appointment: [facility]at Douglass [facility]el[facility] [phone] [facility] [place] (15 min) Moderate 05/14/2018 Appointment: [...] stool samples. 07/30/2017 Appointment: [facility] Douglass [facility]el[facility] [phone] [facility] [place] (15 min) Moderate 07/30/2017 Patient [...] 07/02/2016 Patient Education: Obesity Completed 07/02/2016 Referral: [facility] Referral Appointment Requested Instructions Comment . Well [...]
--- OUTSIDE RECORDS SUMMARY | 2020-05-11 07:49 | XMS REPORT | CCD ---
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 07/02/[address]: 018260901 Never drinks alcohol 07/02/2016 Has the patient [...] ICD-9: 286.7 ICD-10: D68.4 Active 07/30/2017 Unknown Cough ICD-9: 786.2 ICD-10: R05 Active 07/30/2017 Unknown Gastro-esophageal re flux disease [...] deficiency ICD-9: 286.7 ICD-10: D68.4 07/30/2017 Active Cough ICD-9: 786.2 ICD-10: R05 07/30/2017 Active Gastro-esophageal re flux disease without esophagitis ICD-9: 530.81 ICD-10: K21.9 07/30/2017 Active Medications Medication Codes Instruc tions Start Date Stop Date Sta tus Fill Instructions Xarelto 20 mg tablet RxNorm: 1379359 1 Tablet(s) PO daily 05/19/2018 05/13/2019 Active Tessalon Perles 100 mg capsule RxNorm: 005032 1 Capsule(s) PO TID a s needed 07/30/2017 08/28/2017 In active Procto-Papa 1 % topic al cream perineal applicator RxNorm: 907961 1 Application RTL mumtaz ly 07/30/2017 08/05/2017 Inactive omeprazole 20 mg cap denise,delayed release RxNorm: 313155 1 Capsule(s) PO daily 07/30/2017 08/28/2017 In active Keflex 500 mg capsule RxNorm: 374473 1 Capsule(s) PO TID 05/02/2017 05/01/2017 Inactive Keflex 500 mg capsule RxNorm: 118462 1 Capsule(s) PO TID 05/02/2017 08/03/2018 Inactive Claritin 10 mg tablet RxNorm: 249999 1 Tablet(s) PO daily No Start Date Active Imodium oral RxNorm: 51652 oral No Start Date Active Xarelto 20 mg tablet RxNorm: 6815736 1 Tablet(s) PO daily No Start Date 05/18/2018 Inactive Medication Administered No Medication Administered data Immunizations No Immunization data Assessments Condition Codes Effectiv e Dates Dysuria ICD-10: R30.0 ICD-9: 788.1 11/03/2018 Other hypertrophic disorders of the skin ICD-10: L91.8 ICD-9: 701.9 08/04/2018 Varicose veins of right lower extremity with pain ICD-10: I83.811 ICD-9: 454.8 05/19/2018 Encounter for general adult medical exam ination without abnormal findings ICD-10: Z00.00 ICD-9: V70.0 05/19/2018 Acute anal fissure ICD-10: K60.0 ICD-9: 565.0 07/31/2017 Cough ICD-10: R05 ICD-9: 786.2 07/30/2017 Acquired coagulation factor deficiency ICD-10: D68.4 ICD-9: 286.7 07/30/2017 Gastro-esophageal reflux disease without esophagitis ICD-10: K21.9 ICD-9: 530.81 07/30/2017 Reason For Visit Reason For Visit Effective Dates Notes acrochordon (skin tags) 08/04/2018 well woman exam (40-65 years) 05/19/2018 cough 07/30/2017 blood i n stool callus 07/02/2016 on her right shoulder Results Observation Observation Code Item Item Code Result Date Culture Urine 182127 URI NE CULTURE SEE NOTES 03/12/2018 Urine Culture Ucult Comp lete Growth of aerobe sent to ref lab 03/11/2018 Urine Culture Ucult Comp lete Growth of aerobe sent to ref lab 05/03/2017 Review of Systems System Result Effective Dates Constitutional No recent illness 08/04/2018 Constitutional No [...] Result Effective Dates Notes Full Exam - Dermatology Constitutional general appearance [...] affect 07/02/2016 None Procedures Procedure Codes Date REMOVAL OF SKIN TAGS <W/15 CPT-4: 42432 08/04/2018 URINALYSIS NONAUTO W /O SCOPE CPT-4: 53662 03/09/2018 OCCULT BLOOD FECES CPT- 4: 78646 07/31/2017 URINALYSIS NONAUTO W /O SCOPE CPT-4: 34784 05/02/2017 Vital Signs Date Vital 11/03/2018 Heigh t: 5'1" 08/04/2018 Blood Pressure 1: 122/76 Code: 8480-6 BMI: 29.9 Code: 73379-6 Heart Rate 1: 70 bpm Height: 5'1" SpO2: 98% Weight: 158 lbs 05/19/2018 Blood Pressure 1: 118/76 Code: 8480-6 BMI: 30.2 Code: 40760-7 Heart Rate 1: 72 bpm Height: 5'1" SpO2: 98% Weight: 160 lbs 07/30/2017 Blood Pressure 1: 130/62 Code: 8480-6 BMI: 31.2 Code: 06820-8 Heart Rate 1: 102 bpm Height: 5'1" SpO2: 97% Weight: 165 lbs 07/02/2016 Blood Pressure 1: 116/80 Code: 8480-6 BMI: 31.2 Code: 58927-3 Heart Rate 1: 80 bpm Height: 5'1" SpO2: 97% Weight: 165 lbs Functional Status No Functional Status data History of Present Illness Symptom Name Status Resu lt Effective Date Notes acrochordon (skin tags) Location diffusely 08/04/2018 -left [...] Encounters Encounter Performer Loca tion Codes Date ([id number]) PREV VISIT E ST AGE 40-64 Diagnosis: Encounter for general adult medical examination without abnormal findings[ICD10: Z00.00] [facility] CPT-4: 63067 05/19/2018 ([id number]) 58580 EST. 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] Diagnosis: Gastro-esophageal reflux disease without esophagitis[ICD10: K21.9] Diagnosis: Cough[ICD10: R05] [facility] CPT-4: 73692 07/30/2017 ([id number]) PREV VISIT N EW AGE 40-64 Diagnosis: Encounter for general adult medical examination without abnormal findings[ICD10: Z00.00] [facility] CPT-4: 77220 07/02/2016 Plan of Care Planned Activity Notes C odes Status Date Appointment: Nurse Visit 11/03/2018 Patient Education: Patient Medication Summary Completed 11/03/2018 Visit Plan: Wound Instructions - Pt was instructed to keep the wound clean, wash with antibacterial soap, use triple antibiotic ointment, call if redness, pustular drainage, or any other acute concerns. 08/04/2018 Appointment: Caty Jordan WPtel: [phone] [phone] [place] (30 min) Complex 08/04/2018 Patient Education: Patient Medication Summary Completed 08/04/2018 Referral: [facility] Referral Completed 06/16/2018 Visit Plan: [...] with xarelto 05/19/2018 [facility]ment[phone] [place] (15 min) Moderate 05/19/2018 Patient Education: Patient Medication Summary Completed 05/19/2018 Care Plan: Referral Order SNOMED-CT : 944352583 Pending 05/19/2018 Appointment: [facility]at Douglass [facility]el[phone] [facility] [place] (15 min) Moderate 05/14/2018 Appointment: Lab [...] improve with the omeprazole RX. Cough - Tessalshea Barboza Anal Fissure - continue with procto- papa as directed - monitor GI symptoms - bring in stool samples. 07/30/2017 Appointment: [facility]at Douglass [phone] [facility] (15 min) Moderate 07/30/2017 Patient Education: Patient [...] 07/02/2016 Patient Education: Obesity Completed 07/02/2016 Referral: [facility] Referral Appointment Requested Instructions Comment [...] with the omeprazole RX. Cough - Tessalon Jabari Anal Fissure - continue with procto-papa as directed - monitor GI symptoms - bring in stool samples. . Wound Instructions - Pt was instructed [...]
--- OUTSIDE RECORDS SUMMARY | 2020-05-11 07:49 | XMS REPORT | CCD ---
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 Never smoker 07/02/[address]: 082108184 Never drinks alcohol 07/02/2016 Has the patient [...] Fill Instructions Keflex 500 mg capsule RxNorm: 563782 1 Capsule(s) PO QID 11/04/2018 11/10/2018 Active Pyridium 100 mg tablet RxNorm: 4787358 1 Tablet(s) PO TID 11/04/2018 11/10/2018 Active Pyridium 100 mg tablet RxNorm: 7577472 1 Tablet(s) PO TID 11/04/2018 11/03/2018 Inactive Xarelto 20 mg tablet RxNorm: 5397801 1 Tablet(s) PO daily 05/19/2018 05/13/2019 Active Tessalon Perles 100 mg capsule RxNorm: 864683 1 Capsule(s) PO TID a s needed 07/30/2017 08/28/2017 In active Procto-Papa 1 % topic al cream perineal applicator RxNorm: 319998 1 Application RTL mumtaz ly 07/30/2017 08/05/2017 Inactive omeprazole 20 mg cap denise,delayed release RxNorm: 469707 1 Capsule(s) PO daily 07/30/2017 08/28/2017 In active Keflex 500 mg capsule RxNorm: 683533 1 Capsule(s) PO TID 05/02/2017 05/01/2017 Inactive Keflex 500 mg capsule RxNorm: 143916 1 Capsule(s) PO TID 05/02/2017 08/03/2018 Inactive Claritin 10 mg tablet RxNorm: 557306 1 Tablet(s) PO daily No Start Date Active Imodium oral RxNorm: 58996 oral No Start Date Active Xarelto 20 mg tablet RxNorm: 6553226 1 Tablet(s) PO daily No Start Date [...] Item Item Code Result Date Culture Urine 245312 URI NE CULTURE SEE NOTES 03/12/2018 Urine [...] Date REMOVAL OF SKIN TAGS <W/15 CPT-4: 55901 08/04/2018 URINALYSIS NONAUTO W /O SCOPE CPT-4: 33873 03/09/2018 OCCULT BLOOD FECES CPT- 4: 73356 07/31/2017 URINALYSIS NONAUTO W /O SCOPE CPT-4: 25220 05/02/2017 Vital Signs Date Vital 11/03/2018 Heigh t: 5'1" 08/04/2018 Blood Pressure 1: 122/76 Code: 8480-6 BMI: 29.9 Code: 59919-1 Heart Rate 1: 70 bpm Height: 5'1" SpO2: 98% Weight: 158 lbs 05/19/2018 Blood Pressure 1: 118/76 Code: 8480-6 BMI: 30.2 Code: 30437-7 Heart Rate 1: 72 bpm Height: 5'1" SpO2: 98% Weight: 160 lbs 07/30/2017 Blood Pressure 1: 130/62 Code: 8480-6 BMI: 31.2 Code: 42497-9 Heart Rate 1: 102 bpm Height: 5'1" SpO2: 97% Weight: 165 lbs 07/02/2016 Blood Pressure 1: 116/80 Code: 8480-6 BMI: 31.2 Code: 73202-4 Heart Rate 1: 80 bpm Height: 5'1" [...] Encounters Encounter Performer Loca tion Codes Date ([id number]) PREV VISIT E ST AGE 40-64 Diagnosis: Encounter for general adult medical examination without abnormal findings[ICD10: Z00.00] Anat Douglass MD, [facility] CPT-4: 60460 05/19/2018 ([id number]) [id number] EST. 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] Diagnosis: Gastro-esophageal reflux disease without esophagitis[ICD10: K21.9] Diagnosis: Cough[ICD10: R05] [facility] CPT-4: 13035 07/30/2017 ([id number]) PREV VISIT N EW AGE 40-64 Diagnosis: Encounter for general adult medical examination without abnormal findings[ICD10: Z00.00] Anat Douglass MD, [facility] CPT-4: 65602 07/02/2016 Plan of Care Planned Activity Notes C odes Status Date Appointment: Nurse Visit 11/03/2018 Patient Education: Patient Medication Summary Completed 11/03/2018 Visit Plan: Wound Instructions - Pt was instructed to keep the wound clean, wash with antibacterial soap, use triple antibiotic ointment, call if redness, pustular drainage, or any other acute concerns. 08/04/2018 Appointment: Caty Jordan WPtel: [address] [place], [place] [phone] (30 min) [facility] 08/04/2018 Patient Education: Patient Medication Summary Completed 08/04/2018 Referral: [facility] Referral Completed 06/16/2018 Visit Plan: Well Adult [...] with xarelto 05/19/2018 Appointment: Anat Douglass WPtel: [address] [place], [place] [address] [place] (15 min) Moderate 05/19/2018 Patient Education: Patient Medication Summary Completed 05/19/2018 Care Plan: Referral Order SNOMED-CT : [id number] Pending 05/19/2018 [facility] [phone] [phone] ([facility] min) Moderate 05/14/2018 Appointment: Lab Draw [...] samples. 07/30/2017 Appointment: [facility] [phone] [facility] (15 min) Moderate 07/30/2017 Patient Education: [...] 07/02/2016 Patient Education: Obesity Completed 07/02/2016 Referral: [facility] Referral Appointment Requested Instructions Comment . Well [...] improve with the omeprazole RX. Cough - Alma Barboza Anal Fissure - continue with procto-papa as [...]
--- OUTSIDE RECORDS SUMMARY | 2020-05-11 07:49 | XMS REPORT | CCD ---
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 07/02/[address]: 393241734 Never drinks alcohol 07/02/2016 Has the patient [...] Fill Instructions Keflex 500 mg capsule RxNorm: 239255 1 Capsule(s) PO QID 01/15/2019 01/21/2019 Active Keflex 500 mg capsule RxNorm: 294808 1 Capsule(s) PO QID 11/04/2018 11/10/2018 Inactive Pyridium 100 mg tablet RxNorm: 4795331 1 Tablet(s) PO TID 11/04/2018 11/10/2018 Inactive Pyridium 100 mg tablet RxNorm: 7515846 1 Tablet(s) PO TID 11/04/2018 11/03/2018 Inactive Xarelto 20 mg tablet RxNorm: 0269450 1 Tablet(s) PO daily 05/19/2018 05/13/2019 Active Tessalon Perles 100 mg capsule RxNorm: 304935 1 Capsule(s) PO TID a s needed 07/30/2017 08/28/2017 In active Procto-Papa 1 % topic al cream perineal applicator RxNorm: 852898 1 Application RTL mumtaz ly 07/30/2017 08/05/2017 Inactive omeprazole 20 mg cap denise,delayed release RxNorm: 565230 1 Capsule(s) PO daily 07/30/2017 08/28/2017 In active Keflex 500 mg capsule RxNorm: 333114 1 Capsule(s) PO TID 05/02/2017 05/01/2017 Inactive Keflex 500 mg capsule RxNorm: 316605 1 Capsule(s) PO TID 05/02/2017 08/03/2018 Inactive Claritin 10 mg tablet RxNorm: 009102 1 Tablet(s) PO daily No Start Date Active Imodium oral RxNorm: 16810 oral No Start Date Active Xarelto 20 mg tablet RxNorm: 7998862 1 Tablet(s) PO daily No Start Date [...] Item Item Code Result Date Culture Urine 727500 URI NE CULTURE SEE NOTES 03/12/2018 Urine [...] Date URINALYSIS NONAUTO W /O SCOPE CPT-4: 99054 11/03/2018 REMOVAL OF SKIN TAGS <W/15 CPT-4: 87936 08/04/2018 URINALYSIS NONAUTO W /O SCOPE CPT-4: 61368 03/09/2018 OCCULT BLOOD FECES CPT- 4: 86428 07/31/2017 URINALYSIS NONAUTO W /O SCOPE CPT-4: 15574 05/02/2017 Vital Signs Date Vital 11/03/2018 Heigh t: 5'1" 08/04/2018 Blood Pressure 1: 122/76 Code: 8480-6 BMI: 29.9 Code: 00034-9 Heart Rate 1: 70 bpm Height: 5'1" SpO2: 98% Weight: 158 lbs 05/19/2018 Blood Pressure 1: 118/76 Code: 8480-6 BMI: 30.2 Code: 79730-1 Heart Rate 1: 72 bpm Height: 5'1" SpO2: 98% Weight: 160 lbs 07/30/2017 Blood Pressure 1: 130/62 Code: 8480-6 BMI: 31.2 Code: 88163-4 Heart Rate 1: 102 bpm Height: 5'1" SpO2: 97% Weight: 165 lbs 07/02/2016 Blood Pressure 1: 116/80 Code: 8480-6 BMI: 31.2 Code: 49444-7 Heart Rate 1: 80 bpm Height: 5'1" [...] Encounters Encounter Performer Loca tion Codes Date ([id number]) PREV VISIT E ST AGE 40-64 Diagnosis: Encounter for general adult medical examination without abnormal findings[ICD10: Z00.00] [facility] CPT-4: 85910 05/19/2018 ([id number]) 98510 EST. 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] Diagnosis: Gastro-esophageal reflux disease without esophagitis[ICD10: K21.9] Diagnosis: Cough[ICD10: R05] [facility] CPT-4: 95660 07/30/2017 ([id number]) PREV VISIT N EW AGE 40-64 Diagnosis: Encounter for general adult medical examination without abnormal findings[ICD10: Z00.00] [facility] CPT-4: 99706 07/02/2016 Plan of Care Planned Activity Notes C odes Status Date Care Plan: C URINE RT Pending 11/06/2018 Care Plan: Urine Culture Pending 11/06/2018 Appointment: Lab Draw 11/03/2018 Patient Education: Patient Medication Summary Completed 11/03/2018 Visit Plan: Wound Instructions - Pt was instructed to keep the wound clean, wash with antibacterial soap, use triple antibiotic ointment, call if redness, pustular drainage, or any other acute concerns. 08/04/2018 Appointment: Caty Jordan WPtel: [address] [place], [place] [phone] (30 min) [facility] 08/04/2018 Patient Education: Patient Medication Summary Completed 08/04/2018 Referral: [facility] Referral Completed 06/16/2018 Visit Plan: Well [...] with xarelto 05/19/2018 Appointment: [facility] [phone] [facility] (15 min) Moderate 05/19/2018 Patient Education: Patient Medication Summary Completed 05/19/2018 Care Plan: Referral Order SNOMED-CT : [id number] Pending 05/19/2018 Appointment: Anat Douglass WPtel: [phone] [facility] [place] (15 min) Moderate 05/14/2018 Appointment: Lab [...] stool samples. 07/30/2017 Appointment: Anat Douglass WPtel: [phone] [facility] [place] (15 min) Moderate 07/30/2017 Patient Education: [...] 07/02/2016 Patient Education: Obesity Completed 07/02/2016 Referral: [facility] Referral Appointment Requested Instructions Comment . [...] with the omeprazole RX. Cough - Tessalon Perlkaran Anal Fissure - continue with procto-papa as [...]
--- OUTSIDE RECORDS SUMMARY | 2020-05-11 07:50 | XMS REPORT | Continuity of Care Document ---
Author Organization Unknown Address Unknown Phone Unavailable Allergies Active Description Code Type Severity Reaction Onset Reported/Identified Relationship to Patient Clinical Status Yes Sulfa (Sulfonamide Antibiotics) [id number] 0491 Drug Allergy Mild N/A 9 Medications There is no data. 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 10/30/1424 RANI ESPINOZA MD Ot Z86.711 PERSONAL HISTORY OF PULMONARY EMBOLISM 10/30/1424 RANI ESPINOZA MD, Ot Z86.718 PERSONAL HISTORY OF OTHER VENOUS THROMBO 10/30/1504 ESDRAS SANCHEZ MD Ot Z01.81 8 ENCOUNTER FOR OTHER PREPROCEDURAL EXAMIN 10/30/1504 ESDRAS SANCHEZ MD Ot Z11.59 ENCOUNTER FOR SCREENING FOR OTHER VIRAL 11/08/2009 Ot 599.70 11/08/2009 Ot 787.91 11/08/2009 Ot 788.41 04/25/2010 Ot 453.40 04/25/2010 Ot V58.61 06/14/2010 Ot 599.0 06/14/2010 Ot 780.4 08/30/2010 Ot 847.0 08/30/2010 Ot 847.1 08/30/2010 Ot 847.2 08/30/2010 Ot 959.09 08/30/2010 Ot E000.8 08/30/2010 Ot E812.0 12/14/2014 Ot 599.70 12/14/2014 Ot 780.60 12/14/2014 Ot 558.9 12/14/2014 Ot V72.63 12/14/2014 Ot V72.81 12/14/2014 Ot 789.05 12/14/2014 Ot 789.35 12/14/2014 Ot 553.8 12/14/2014 Ot 791.9 12/14/2014 Ot V72.63 12/14/2014 Ot V72.81 12/15/2014 Ot 453.40 12/15/2014 Ot V58.61 12/15/2014 Ot 286.3 12/15/2014 Ot 553.20 12/15/2014 Ot 789.05 12/15/2014 Ot 789.35 12/16/2014 SHADY ABBOTT, JEROME Sierra Ot 289.81 12/16/2014 SHADY ABBOTT, JEROME Sierra Ot 415.19 12/16/2014 SHADY ABBOTT, JEROME Sierra Ot V12.51 12/16/2014 SHADY ABBOTT, JEROME Sierra Ot V12.79 12/16/2014 SHADY ABBOTT, JEROME Sierra Ot V45.72 04/04/2015 OLGA ABBOTT, RANI Mariela Ot 289.81 04/04/2015 OLGA ABBOTT, RANI Sierra Ot V12.51 04/04/2015 OLGA ABBOTT, RANI Mariela Ot V12.55 04/05/2015 OLGA ABBOTT, RANI Mariela Ot 289.81 04/05/2015 OLGA ABBOTT, RANI Sierra Ot V12.51 04/05/2015 OLGA ABBOTT, RANI Sierra Ot V12.55 04/06/2015 OLGA ABBOTT, RANI Mariela Ot 289.81 04/06/2015 OLGA ABBOTT, RANI Sierra Ot V12.51 04/06/2015 OLGA ABBOTT, RANI Mariela Ot V12.55 04/06/2015 OLGA ABBOTT, RANI Mariela Ot 289.81 04/06/2015 OLGA ABBOTT, RANI Mariela Ot V12.51 04/06/2015 OLGA ABBOTT, RANI Mariela Ot V12.55 05/23/2015 OLGA ABBOTT, RANI Mariela Ot 289.81 05/23/2015 OLGA ABBOTT, RANI Sierra Ot V12.51 05/23/2015 OLGA ABBOTT, RANI Mariela Ot V12.55 05/30/2015 PATTI RODRIGUES DO Ot 729.5 05/30/2015 PATTI RODRIGUES DO Ot 729.81 07/04/2015 OLGA ABBOTT, RANI Sierra Ot 289.81 07/04/2015 OLGA ABBOTT, RANI Sierra Ot V12.51 07/04/2015 OLGA ABBOTT, RANI Sierra Ot V12.55 11/27/2015 OLGA ABBOTT, RANI Sierra Ot 289.81 11/27/2015 OLGA ABBOTT, RANI Sierra Ot V12.51 11/27/2015 OLGA ABBOTT, RANI Sierra Ot V12.55 12/05/2015 OLGA ABBOTT, RANI Sierra Ot 289.81 12/05/2015 OLGA ABBOTT, RANI Sierra Ot V12.51 12/05/2015 OLGA ABBOTT, RANI Sierra Ot V12.55 01/18/2016 OLGA ABBOTT, RANI Sierra Ot 289.81 01/18/2016 OLGA ABBOTT, RANI Sierra Ot D68.59 01/18/2016 OLGA ABBOTT, RANI Sierra Ot V12.51 01/18/2016 OLGA ABBOTT, RANI Sierra Ot V12.55 01/18/2016 OLGA ABBOTT, RANI Sierra Ot Z86.711 01/18/2016 OLGA ABBOTT, RANI Sierra Ot Z86.718 01/29/2016 OLGA ABBOTT, RANI Sierra Ot 289.81 01/29/2016 OLGA ABBOTT, RANI Sierra Ot D68.59 01/29/2016 OLGA ABBOTT, RANI Sierra Ot V12.51 01/29/2016 OLGA ABBOTT, RANI Sierra Ot V12.55 01/29/2016 OLGA ABBOTT, RANI Sierra Ot Z86.711 01/29/2016 OLGA ABBOTT, RANI Sierra Ot Z86.718 02/21/2016 OLGA ABBOTT, RANI Sierra Ot 289.81 02/21/2016 OLGA ABBOTT, RANI Sierra Ot D68.59 02/21/2016 OLGA ABBOTT, RANI Sierra Ot V12.51 02/21/2016 OLGA ABBOTT, RANI Sierra Ot V12.55 02/21/2016 OLGA ABBOTT, RANI Sierra Ot Z86.711 02/21/2016 OLGA ABBOTT, RANI Sierra Ot Z86.718 03/03/2016 OLGA ABBOTT, RANI Sierra Ot D68.59 OTHER PRIMARY THROMBOPHILIA 03/03/2016 OLGA ABBOTT, RANI Sierra Ot Z86.711 PERSONAL HISTORY OF PULMONARY EMBOLISM 03/03/2016 OLGA ABBOTT, RANI Sierra Ot Z86.718 PERSONAL HISTORY OF OTHER VENOUS THROMBO 03/05/2016 OLGA ABBOTT, RANI Sierra Ot D68.59 03/05/2016 OLGA ABBOTT, RANI Sierra Ot Z86.711 03/05/2016 OLGA ABBOTT, RANI Sierra Ot Z86.718 03/09/2016 OLGA ABBOTT, RANI Sierra Ot D68.59 03/09/2016 OLGA ABBOTT, RANI Sierra Ot Z86.711 03/09/2016 OLGA ABBOTT, RANI Sierra Ot Z86.718 07/01/2016 Ot 599.70 HEM ATURIA, UNSPECIFIED 07/01/2016 Ot 787.91 SADA RRHEA 07/01/2016 Ot 788.41 URI NARY FREQUENCY 07/01/2016 RANI ESPINOZA MD, Ot 289.81 PRIMARY HYPERCOAGULABLE STATE 07/01/2016 RANI ESPINOZA MD, Ot D68.59 OTHER PRIMARY THROMBOPHILIA 07/01/2016 RANI ESPINOZA MD, Ot V12.51 HX- VENOUS THROMBOSIS EMBOLISM 07/01/2016 RANI ESPINOZA MD, Ot V12.55 PERSONAL HISTORY OF PULMONARY EMBOLISM 07/01/2016 RANI ESPINOZA MD, Ot Z86.711 PERSONAL HISTORY OF PULMONARY EMBOLISM 07/01/2016 RANI ESPINOZA MD, Ot Z86.718 PERSONAL HISTORY OF OTHER VENOUS THROMBO 07/09/2016 RANI ESPINOZA MD, Ot D68.59 OTHER PRIMARY THROMBOPHILIA 07/09/2016 RANI ESPINOZA MD, Ot Z86.711 PERSONAL HISTORY OF PULMONARY EMBOLISM 07/09/2016 RANI ESPINOZA MD, Ot Z86.718 PERSONAL HISTORY OF OTHER VENOUS THROMBO 08/15/2016 RANI ESPINOZA MD, Ot D68.59 OTHER PRIMARY THROMBOPHILIA 08/15/2016 RANI ESPINOZA MD, Ot Z86.711 PERSONAL HISTORY OF PULMONARY EMBOLISM 08/15/2016 RANI ESPINOZA MD, Ot Z86.718 PERSONAL HISTORY OF OTHER VENOUS THROMBO 08/31/2016 Ot 599.70 HEM ATURIA, UNSPECIFIED 08/31/2016 Ot 787.91 SADA RRHEA 08/31/2016 Ot 788.41 URI NARY FREQUENCY 10/06/2016 RANI ESPINOZA MD, Ot D68.59 OTHER PRIMARY THROMBOPHILIA 10/06/2016 RANI ESPINOZA MD, Ot Z86.711 PERSONAL HISTORY OF PULMONARY EMBOLISM 10/06/2016 RANI ESPINOZA MD, Ot Z86.718 PERSONAL HISTORY OF OTHER VENOUS THROMBO 10/07/2016 RANI ESPINOZA MD, Ot D68.59 OTHER PRIMARY THROMBOPHILIA 10/07/2016 RANI ESPINOZA MD, Ot Z86.711 PERSONAL HISTORY OF PULMONARY EMBOLISM 10/07/2016 RANI ESPINOZA MD, Ot Z86.718 PERSONAL HISTORY OF OTHER VENOUS THROMBO 12/24/2016 RANI ESPINOZA MD, Ot D68.59 OTHER PRIMARY THROMBOPHILIA 12/24/2016 RANI ESPINOZA MD, Ot Z86.711 PERSONAL HISTORY OF PULMONARY EMBOLISM 12/24/2016 RANI ESPINOZA MD, Ot Z86.718 PERSONAL HISTORY OF OTHER VENOUS THROMBO 01/10/2017 RANI ESPINOZA MD Ot D68.59 OTHER PRIMARY THROMBOPHILIA 01/10/2017 RANI ESPINOZA MD Ot Z86.711 PERSONAL HISTORY OF PULMONARY EMBOLISM 01/10/2017 RANI ESPINOZA MD Ot Z86.718 PERSONAL HISTORY OF OTHER VENOUS THROMBO 01/13/2017 RANI ESPINOZA MD Ot D68.59 OTHER PRIMARY THROMBOPHILIA 01/13/2017 RANI ESPINOZA MD Ot Z86.711 PERSONAL HISTORY OF PULMONARY EMBOLISM 01/13/2017 RANI ESPINOZA MD Ot Z86.718 PERSONAL HISTORY OF OTHER VENOUS THROMBO 02/04/2017 RANI ESPINOZA MD Ot D68.59 OTHER PRIMARY THROMBOPHILIA 02/04/2017 RANI ESPINOZA MD Ot Z86.711 PERSONAL HISTORY OF PULMONARY EMBOLISM 02/04/2017 RANI ESPINOZA MD, Ot Z86.718 PERSONAL HISTORY OF OTHER VENOUS THROMBO 02/19/2017 RANI ESPINOZA MD, Ot D68.59 OTHER PRIMARY THROMBOPHILIA 02/19/2017 RANI ESPINOZA MD Ot Z86.711 PERSONAL HISTORY OF PULMONARY EMBOLISM 02/19/2017 RANI ESPINOZA MD Ot Z86.718 PERSONAL HISTORY OF OTHER VENOUS THROMBO 04/13/2017 RANI ESPINOZA MD Ot D68.59 OTHER PRIMARY THROMBOPHILIA 04/13/2017 RANI ESPINOZA MD Ot Z86.711 PERSONAL HISTORY OF PULMONARY EMBOLISM 04/13/2017 RANI ESPINOZA MD Ot Z86.718 PERSONAL HISTORY OF OTHER VENOUS THROMBO 06/26/2017 RANI ESPINOZA MD Ot D68.59 OTHER PRIMARY THROMBOPHILIA 06/26/2017 RANI ESPINOZA MD Ot Z86.711 PERSONAL HISTORY OF PULMONARY EMBOLISM 06/26/2017 RANI ESPINOZA MD Ot Z86.718 PERSONAL HISTORY OF OTHER VENOUS THROMBO 01/14/2018 TISHA EDUARDO MD Ot D68.59 OTHER PRIMARY THROMBOPHILIA 01/14/2018 TISHA EDUARDO MD Ot Z86.711 PERSONAL HISTORY OF PULMONARY EMBOLISM 01/14/2018 TISHA EDUARDO MD Ot Z86.718 PERSONAL HISTORY OF OTHER VENOUS THROMBO 03/22/2018 TISHA EDUARDO MD, Ot D68.59 OTHER PRIMARY THROMBOPHILIA 03/22/2018 TISHA EDUARDO MD Ot Z86.711 PERSONAL HISTORY OF PULMONARY EMBOLISM 03/22/2018 TISHA EDUARDO MD Ot Z86.718 PERSONAL HISTORY OF OTHER VENOUS THROMBO 06/26/2018 TISHA EDUARDO MD Ot D68.59 OTHER PRIMARY THROMBOPHILIA 06/26/2018 TISHA EDUARDO MD Ot Z86.711 PERSONAL HISTORY OF PULMONARY EMBOLISM 06/26/2018 TISHA EDUARDO MD Ot Z86.718 PERSONAL HISTORY OF OTHER VENOUS THROMBO 06/30/2018 TISHA EDUARDO MD Ot D68.59 OTHER PRIMARY THROMBOPHILIA 06/30/2018 TISHA EDUARDO MD Ot Z86.711 PERSONAL HISTORY OF PULMONARY EMBOLISM 06/30/2018 JERALD EDUARDO MDNER Ot Z86.718 PERSONAL HISTORY OF OTHER VENOUS THROMBO 08/01/2018 Ot 599.70 HEM ATURIA, UNSPECIFIED 08/01/2018 Ot 787.91 SADA RRHEA 08/01/2018 Ot 788.41 URI NARY FREQUENCY 08/12/2018 TISHA EDUARDO MD Ot D68.59 OTHER PRIMARY THROMBOPHILIA 08/12/2018 TISHA EDUARDO MD Ot Z86.711 PERSONAL HISTORY OF PULMONARY EMBOLISM 08/12/2018 TISHA EDUARDO MD Ot Z86.718 PERSONAL HISTORY OF OTHER VENOUS THROMBO 04/19/2020 W D17.1 Lipo ma of back Anat Douglass 04/19/2020 W Z00.00 Enc ounter for general adult medical examination without abnormal findings Anat Douglass 05/01/2020 Ot 599.70 HEM ATURIA, UNSPECIFIED 05/01/2020 Ot 787.91 SADA RRHEA 05/01/2020 Ot 788.41 URI NARY FREQUENCY Procedures There is no data. Results Test Result Range Coronavirus SARS-CoV-2 SO 2018 - 0 08:40 Coronavirus Ab [Units/volume] in Serum Negative Negative Encounters ACCT No. Visit Date/Time Discharge Status Pt. Type Provider Facility Loc./Unit Complaint [id number] 11/09/2019 07:20:00 11/09/2019 23:59: 59 CLS Outpatient [facility] [id number] 05/08/2020 05:42:00 020 15:05:00 DIS Outpatient ESDRAS SANCHEZ MD [facility] PREOP LEFT SHOULDER/POSTERIOR NECK LIPOMA [id number] 08/31/2018 00:26:00 018 23:59:59 CLS Preadmit TISHA EDUARDO MD [facility] ONC [id number] 06/25/2018 15:09:00 018 00:01:00 DIS Outpatient TISHA EDUARDO MD, V [facility] ONC [id number] 12/25/2017 15:02:00 018 00:01:00 DIS Outpatient TISHA EDUARDO MD, V [facility] ONC [id number] 06/26/2017 09:28:00 017 14:25:00 DIS Outpatient RANI ESPINOZA MD, V [facility] ONC [id number] 01/13/2017 02:45:00 017 23:59:59 CLS Outpatient RANI ESPINOZA MD, V [facility] ONC [id number] 07/08/2016 13:06:00 016 00:01:00 DIS Outpatient RANI ESPINOZA MD, V [facility] ONC [id number] 02/12/2016 15:43:00 016 23:59:59 CLS Outpatient RANI ESPINOZA MD, V [facility] ONC [id number] 07/03/2015 13:56:00 015 00:01:00 DIS Outpatient RANI ESPINOZA MD, V [facility] ONC [id number] 05/29/2015 23:24:00 015 01:28:00 DIS Emergency PATTI RODRIGUES DO [facility] ER [id number] 03/07/2015 15:36:00 015 00:01:00 DIS Outpatient RANI ESPINOZA MD, V [facility] ONC [id number] 12/15/2014 01:52:00 015 19:30:00 DIS Inpatient JEROME CARUSO MD [facility] CSD [id number] 05/11/2020 09:30:00 P MONTSERRAT SANCHEZ MD, ESDRAS Via [facility] SDC LEFT SHOULDER/POSTERIOR NECK LIPOMA [id number] 03/06/2012 12:54:00 Document Registration [id number] 09/28/2010 06:59:00 Document Registration [id number] 08/30/2010 18:34:00 Document Registration [id number] 06/13/2010 23:01:00 Document Registration [id number] 05/11/2010 15:44:00 Document Registration [id number] 04/24/2010 07:13:00 Document Registration [id number] 03/09/2010 00:00:00 Document Registration [id number] 03/01/2010 13:19:00 Document Registration [id number] 02/06/2010 16:40:00 Document Registration [id number] 10/02/2009 12:47:00 Document Registration [id number] 08/10/2009 23:00:00 Document Registration [id number] 08/07/2017 08:48:51 08/07/2017 23:59:5 9 [facility]
[2020-05-11] MEDS ORDERED: ceFAZolin 2 GM IV Premixed 50 ML IV ONE (08:00)
[2020-05-11] MEDS: LACTATED RINGERS 1,000 ML IV PRN ×2 (08:14→11:27)
--- NOTE | 2020-05-11 08:29 | Progress Note-Pre Operative ---
Pre-Operative Progress Note H&P Reviewed The H&P was reviewed, patient examined and no changes noted. Date Seen by Provider: May 11, 2020 Time Seen by Provider: 08:20 Date H&P Reviewed: May 11, 2020 Time H&P Reviewed: 08:15 Pre-Operative Diagnosis: Symptomatic lipoma left posterior shoulder and posterior base of neck JOSE RAMON MONACO APRN May 11, 2020 08:29
[2020-05-11] MEDS ORDERED: ONDANSETRON 4 MG/2 ML (SDV) Z0FRAN IVP PRN ×2 (08:30→11:30)
[2020-05-11] MEDS ORDERED: HYDROcodone/APAP 5 MG/325 MG (LORTAB) TAB PO ONE (08:30)
[2020-05-11] MEDS ORDERED: ACETAMINOPHEN 325 MG TABLET PO PRN (08:30)
[2020-05-11] MEDS ORDERED: morphine INJ 10 MG/ML 1ML (SYR OR VIAL) IVP PRN (08:30)
[2020-05-11] MEDS ORDERED: HYDR-4227 PO (08:31)
--- NOTE | 2020-05-11 08:32 | Discharge Inst-Surgical ---
D/C Lap Instructions-KIDO Reconcile Patient Problems Problems Reviewed?: Yes New, Converted, or Re-Newed RX: RX on Chart Follow Up Appt in 2 weeks Activity as tolerated No driving for 24 hours No driving while on pain medications Incentive Spirometry use every 2 hours while awake Regular Diet Symptoms to Report: Fever over 101 degree F, Nausea/Vomiting Infection Signs and Symptoms to report: Increased redness, Foul odor of wound, Increased drainage Bathing instructions: May shower Operative Area Clean/Dry; Keep incision clean/dry If any problems/questions: Contact your physician or go to Emergency Room JOSE RAMON MONACO APRN May 11, 2020 08:32
[2020-05-11] MEDS ORDERED: BUP/EPI 0.5% 1:200,000 (SENSORCAINE) 30 ML VIAL ONE (09:07)
[2020-05-11] MEDS ORDERED: fentaNYL INJECTION 100 MCG/2 ML AMP ONE ×2 (09:19→12:06)
[2020-05-11] MEDS ORDERED: MIDAZOLAM 2 MG/2 ML (VERSED) VIAL ONE (09:19)
[2020-05-11] MEDS ORDERED: proPOfol 200 MG/20 ML (DIPRIVAN) VIAL IV ONE (09:25)
[2020-05-11] MEDS ORDERED: ONDANSETRON 4 MG/2 ML (SDV) Z0FRAN ONE (09:25)
[2020-05-11] MEDS ORDERED: DEXAMETHASONE 10 MG/ML (DECADRON) 1 ML VIAL ONE (09:25)
[2020-05-11] MEDS ORDERED: LIDOCAINE PF 2% 5 ML (XYLOCAINE) VIAL ONE (09:25)
[2020-05-11] MEDS ORDERED: ROCURONIUM 10 MG/ML 5 ML SYRINGE IV ONE (09:26)
[2020-05-11] MEDS ORDERED: NEOSTIGMINE 3 MG/3 ML VIAL ONE (09:26)
[2020-05-11] MEDS ORDERED: GLYCOPYRROLATE 0.2 MG/ML (ROBINUL) 2 ML VIAL ONE (09:26)
--- NOTE | 2020-05-11 10:55 | Progress Note-Post Operative ---
Post-Operative Progess Note Surgeon (s)/Maintenance Shop Technician (s) Surgeon ESDRAS SANCHEZ MD Maintenance Shop Technician: rosario cruz METAL FLOW COORDINATOR Pre-Operative Diagnosis Symptomatic lipoma left posterior shoulder and posterior base of neck Post-Operative Diagnosis same Procedure & Operative Findings Date of Procedure 05/11/20 Procedure Performed/Findings subfascial lipoma base posterior neck(10x8cm) and left shoulder(9x5cm). Anesthesia Type get Estimated Blood Loss Estimated blood loss (mL): minimal Specimens/Packing Specimens Removed posterior neck lipoma. left shoulder lipoma. ESDRAS SANCHEZ MD May 11, 2020 10:55
[2020-05-11] MEDS ORDERED: morphine INJ 10 MG/ML 1ML (SYR OR VIAL) IVP ONE (11:30)
[2020-05-11] MEDS ORDERED: HYDROmorphone 2 MG/ML VIAL (DILAUDID) ONE (12:05)
[2020-05-11] MEDS ORDERED: fentaNYL INJECTION 100 MCG/2 ML AMP IVP ONE (12:15)
[2020-05-11] MEDS ORDERED: HYDROmorphone 2 MG/ML VIAL (DILAUDID) IV ONE (12:15)
[2020-05-11] MEDS ORDERED: SEVOFLURANE (ULTANE) 15 ML INHAL SOLN ONE (12:34)
[2020-05-11] MEDS ORDERED: HYDROMORPHONE PO (13:06)
--- NOTE | 2020-05-11 13:47 | OPERATIVE REPORT ---
DATE OF SERVICE: 05/11/2020 ATTENDING PRIMARY CARE PHYSICIAN: Anat Douglass MD PREOPERATIVE DIAGNOSIS: Symptomatic large lipoma, midline base of neck and left shoulder. POSTOPERATIVE DIAGNOSIS: Symptomatic large lipoma, midline base of neck and left shoulder with the dimensions of lipoma of the neck 8 x 10 cm and of the left shoulder 9 x 5 cm. The lipomas were subfascial however, not intramuscular. PROCEDURE: Excision of lipoma, posterior base of neck and left shoulder with left shoulder 9 x 5 cm in size and posterior neck 8 x 10 cm, which were subfascial. SURGEON: Esdras Sanchez MD FISH BONING MACHINE FEEDER: Jose Reyes APRN. ANESTHESIA: General endotracheal. ESTIMATED BLOOD LOSS: Minimal. FINDINGS: Subfascial however, not intramuscular large lipomas at the base of the posterior neck and left shoulder overlying the scapula. DISPOSITION: The patient tolerated the procedure well. INDICATIONS: The patient is a 50-year-old female with two symptomatic lesions of the back. One of the base of the posterior neck, which was large and another lesion similar in size of the left shoulder, which have grown larger in size and become painful. Upon examination, these were firm and rubbery and consistent with benign lipomas however, symptomatic upon palpation. DESCRIPTION OF PROCEDURE: The patient was brought to the operating room, laid supine on the table. After adequate IV pain and sedated medications and general endotracheal intubation, the patient was placed in prone position. The back and neck were then prepped and draped in standard surgical fashion. A 0.5% Marcaine with epinephrine was then used to anesthetize the overlying skin and subcutaneous tissue overlying both of the lesions. We first proceeded with excision of the posterior base of neck lesion by making a transverse skin incision along the glabellar lines using a 15 blade. The lesion was consistent with a lipoma and excised in a systematic fashion using blunt dissection as well as electrocautery which was subfascial and overlying the spinous process of the thoracic vertebrae; however, not encompassing the strap muscles. The lesion was then fully excised with the dimension of the lesion 8 x 10 cm in size. Good hemostasis was observed and the subcutaneous tissue was then reapproximated using 3-0 Vicryl interrupted sutures and the skin was closed using 4-0 Monocryl running subcuticular suture. We then proceeded with excision of the left shoulder lesion in a similar fashion. This lesion again was consistent with a benign lipoma and subfascial however, not intramuscular. The lesion was excised using blunt dissection as well as electrocautery with the excised diameter 9 x 5 cm in size. Good hemostasis was observed. The subcutaneous tissue was then reapproximated using 3-0 Vicryl interrupted suture. Skin was closed using 4-0 Monocryl running subcuticular suture. Wounds were then cleaned and covered with Dermabond. The patient tolerated the procedure well. We will start IV normal pain medication as well as a clear liquid diet. When she is tolerating clears, has good pain control with oral pain medications, ambulating well, we will discharge her home. She will be instructed to do no heavy lifting or exertion for the next two weeks as well. Job ID: [id number] DocumentID: [id number] Dictated Date: 05/11/2020 10:51:36 Tobacco Stripping Machine Operator Date: 05/11/2020 13:46:35 Dictated By: ESDRAS SANCHEZ MD
--- NOTE | 2020-05-11 14:59 | Anesthesia-General Post-Op ---
General Patient Condition Mental Status/LOC: Same as Preop Cardiovascular: Satisfactory Nausea/Vomiting: Absent Respiratory: Satisfactory Pain: Controlled Complications: Absent Post Op Complications Complications None Follow Up Care/Instructions Patient Instructions None needed. Anesthesia/Patient Condition Patient Condition Patient was having significant pain in the PACU and was given morphine, fentanyl and hydromorphone. She was moved to [facility] and was doing well, no complaints, stable vital signs, no apparent adverse anesthesia problems. JOANNE VICK DO May 11, 2020 14:59
== END 2020-05-11 14:24 | disposition home or self-care (01) ==
LOC: SDC 07:36
PROVIDERS: ATTEND Surgery
DX: D17.0 Benign lipomatous neoplasm of skin and subcutaneous tissue of head, face and neck (principal); D17.22 Benign lipomatous neoplasm of skin and subcutaneous tissue of left arm; K51.919 Ulcerative colitis, unspecified with unspecified complications; D68.51 Activated protein C resistance; Z86.711 Personal history of pulmonary embolism; Z86.718 Personal history of other venous thrombosis and embolism; Z79.01 Long term (current) use of anticoagulants
CPT/HCPCS: 84703; 87081; 88304; 94664

== ENCOUNTER 2022-05-15 09:26 | Outpatient (CLI) | payer BC ==
[~2022-05-15] VITALS: Ht 154.9 cm; Wt 73.9 kg
[~2022-05-15 09:26] MED LIST changes: +HYDR-4227 PO; +HYDROMORPHONE PO
[2022-05-16] MEDS ORDERED: HYDR-3817 PO (10:48)
== END 2022-05-15 13:59 | disposition home or self-care (01) ==
LOC: PREOP 09:26
PROVIDERS: ATTEND Surgery
DX: Z01.818 Encounter for other preprocedural examination (principal)

== ENCOUNTER 2022-05-16 10:25 | Day surgery (SDC) | payer BC ==
[2022-05-16] VITALS (10 sets, daily range): BP systolic 104–132; BP diastolic 67–84
[~2022-05-16] VITALS: Ht 155 cm; Wt 74.0 kg
[2022-05-16] MEDS ORDERED: ceFAZolin 2 GM IV Premixed 50 ML IV ONE (10:45)
--- NOTE | 2022-05-16 10:47 | Progress Note-Pre Operative ---
Pre-Operative Progress Note H&P Reviewed The H&P was reviewed, patient examined and no changes noted. Date Seen by Provider: May 16, 2022 Time Seen by Provider: 10:45 Date H&P Reviewed: May 16, 2022 Time H&P Reviewed: 10:40 Pre-Operative Diagnosis: Symptomatic right shoulder lipoma JOSE RAMON MONACO APRN May 16, 2022 10:47
[2022-05-16] MEDS ORDERED: HYDR-3817 PO (10:48)
--- NOTE | 2022-05-16 10:49 | Discharge Inst-Surgical ---
D/C Lap Instructions-KIDO Reconcile Patient Problems Problems Reviewed?: Yes New, Converted, or Re-Newed RX: RX on Chart Follow Up Appt in 2 weeks Activity as tolerated No driving for 24 hours No driving while on pain medications Incentive Spirometry use every 2 hours while awake Regular Diet Symptoms to Report: Fever over 101 degree F, Nausea/Vomiting Infection Signs and Symptoms to report: Increased redness, Foul odor of wound, Increased drainage Bathing instructions: May shower Operative Area Clean/Dry; Keep incision clean/dry If any problems/questions: Contact your physician or go to Emergency Room JOSE RAMON MONACO APRN May 16, 2022 10:48
[2022-05-16] MEDS ORDERED: ONDANSETRON 4 MG/2 ML (SDV) Z0FRAN IVP PRN ×2 (11:00→14:00)
[2022-05-16] MEDS ORDERED: morphine INJ 10 MG/ML 1ML (SYR OR VIAL) IVP PRN (11:00)
[2022-05-16] MEDS ORDERED: HYDROcodone/APAP 5 MG/325 MG (LORTAB) TAB PO ONE (11:00)
[2022-05-16] MEDS ORDERED: LACTATED RINGERS 1,000 ML IV SCH (11:00)
[2022-05-16] MEDS ORDERED: ACETAMINOPHEN 325 MG TABLET PO PRN (11:00)
[2022-05-16] MEDS ORDERED: PROPOFOL INJECTION 50 ML IV ONE (12:39)
[2022-05-16] MEDS ORDERED: fentaNYL INJ 100 MCG/2 ML AMP ONE (12:40)
[2022-05-16] MEDS ORDERED: MIDAZOLAM 2 MG/2 ML (VERSED) VIAL ONE (12:40)
[2022-05-16] MEDS ORDERED: LIDOCAINE/EPI 2% 1:200,00 (XYLOCAINE) 20 ML VIAL ONE (12:41)
[2022-05-16] MEDS ORDERED: LIDOCAINE PF 2% 5 ML (XYLOCAINE) VIAL ONE (13:42)
[2022-05-16] MEDS ORDERED: ONDANSETRON 4 MG/2 ML (SDV) Z0FRAN ONE (13:42)
[2022-05-16] MEDS ORDERED: SEVOFLURANE (ULTANE) 15 ML INHAL SOLN ONE (13:42)
--- NOTE | 2022-05-16 13:47 | Progress Note-Post Operative ---
Post-Operative Progess Note Surgeon (s)/Business Banking Manager (s) Surgeon ESDRAS SANCHEZ MD Business Banking Manager: rosario cruz BOAT OUTBOARD ENGINE MECHANIC Pre-Operative Diagnosis Symptomatic right shoulder lipoma Post-Operative Diagnosis same 1x4cm Procedure & Operative Findings Date of Procedure 05/16/22 Procedure Performed/Findings excision subcutaneous lipoma right shoulder 1x4cm. Anesthesia Type general LMA Estimated Blood Loss Estimated blood loss (mL): minimal Specimens/Packing Specimens Removed lipoma shoulder ESDRAS SANCHEZ MD May 16, 2022 13:47
[2022-05-16] MEDS ORDERED: morphine INJ 10 MG/ML 1ML (SYR OR VIAL) IVP ONE (14:00)
--- NOTE | 2022-05-16 22:18 | OPERATIVE REPORT ---
DATE OF SERVICE: 05/16/2022 ATTENDING PRIMARY CARE PHYSICIAN: Anat Douglass MD PREOPERATIVE DIAGNOSIS: Symptomatic right shoulder lipoma. POSTOPERATIVE DIAGNOSIS: Symptomatic right shoulder lipoma with findings including a subcutaneous lipoma, 4 x 1 cm in size. PROCEDURE: Excision of subcutaneous lipoma, right shoulder, 4 x 1 cm in size. SURGEON: Esdras Sanchez MD PRINCIPAL SOFTWARE ENGINEER: Jose Reyes APRN. ANESTHESIA: General endotracheal. ESTIMATED BLOOD LOSS: Minimal. FINDINGS: Symptomatic right shoulder lipoma with findings including a subcutaneous lipoma, 4 x 1 cm in size. DISPOSITION: The patient tolerated the procedure well. INDICATIONS: The patient is a 52-year-old female known to us. She had had a previous large symptomatic lipomas of the base of the neck as well as the left shoulder, which was excised in 2019. She reports that she has had the development of a right shoulder lipoma, which has grown larger in size and caused pain in her neck. Upon examination, she was found to have a subcutaneous lipoma, which was more flat and approximately 4 x 1 cm in size. DESCRIPTION OF PROCEDURE: The patient was brought to the operating room, laid supine on the table. After adequate IV pain and sedative medications and general laryngeal mask airway intubation, a shoulder bump along the right side was placed. A 0.5% Marcaine with epinephrine was then used to anesthetize the overlying skin to the lesion and an oblique skin incision along the glabellar lines was made using a 15 blade. The lipoma was identified and completely dissected out to the layer just above the trapezius muscle using blunt dissection as well as electrocautery. Good hemostasis was achieved and the entire lesion was excised and measured out to be 4 x 1 cm. Good hemostasis was observed and the subcutaneous tissue was reapproximated using 3-0 Vicryl interrupted sutures. Skin was closed using 4-0 Monocryl running subcuticular suture. Wound was then cleaned and covered with Dermabond. The patient tolerated the procedure well. We will start IV normal pain medication as well as a clear liquid diet. Once she is tolerating clears, has good pain control with oral pain medications, ambulating well, we will discharge her home where she will be instructed to do no heavy lifting or exertion for the next two weeks. Job ID: [id number] DocumentID: [id number] Dictated Date: 05/16/2022 13:51:49 Light Industrial Date: 05/16/2022 22:17:46 Dictated By: ESDRAS SANCHEZ MD
--- NOTE | 2022-05-21 11:04 | Anesthesia-General Post-Op ---
General Patient Condition Mental Status/LOC: Same as Preop Cardiovascular: Satisfactory Nausea/Vomiting: Absent Respiratory: Satisfactory Pain: Controlled Complications: Absent Post Op Complications Complications None Follow Up Care/Instructions Patient Instructions None needed. Anesthesia/Patient Condition Patient Condition Post-dated progress note: Patient was seen on 05-16 at approximately 1430 after the procedure and she was doing well, no complaints, stable vital signs, no apparent adverse anesthesia problems. No complications reported per nursing. JOANNE VICK DO May 21, 2022 11:04
== END 2022-05-16 15:50 | disposition home or self-care (01) ==
LOC: SDC 10:25
PROVIDERS: ATTEND Surgery
DX: D17.21 Benign lipomatous neoplasm of skin and subcutaneous tissue of right arm (principal); E66.9 Obesity, unspecified; Z68.31 Body mass index [BMI] 31.0-31.9, adult
CPT/HCPCS: 87081; 88304